=== PATIENT | female | born 1965 | race Caucasian/White ===

== ENCOUNTER 2016-10-21 10:48 | Emergency (ER) | payer MEDICAID ==
[~2016-10-21] VITALS: Ht 157.5 cm; Wt 2.3 kg
[~2016-10-21 10:48] MED LIST changes: -BUPROPION HCL150 M2 PO; -CETIRIZINE HCL10 MG PO; -GABAPENTIN 600600 MG PO; -LEVAQUIN500 MG PO; -PREDNISONE 20MG20 MG PO; -TRAZODONE 50MG50 MG PO
--- NOTE | 2016-10-21 10:53 | Emergency Room Report ---
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 Clinical Suspician of Infection? Mental Status: Sepsis Risk: Have you (or family members/close friends) recently traveled outside the [place]? If Yes, where/when: Have you had exposure to infectious disease within the past month? TB? Other? Specify: Source patient, RN notes reviewed Exam Limitations no limitations Comment Increasing SOA for a few days. History of COPD and uses inhalers, also says she quit smoking on September 25. ? 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 but no history of heart disease Cardiac Chest Pain Chest pain indicative of cardiac Yes Timing/Duration 1 week ALLERGIES Coded Allergies: No Known Drug Allergies (09/07/16) Home Medications Active Scripts SIMETHICONE (MYLICON 80MG Chewable) 80 MG PO TID #60 TABLET Ref 1 Prov: 08/27/16 Albuterol (Albuterol Inhaler 17GM) 2 PUFF IN QIDP PRN COUGH/SOB #1 INH Prov: 10/30/13 Cyclobenzaprine Hcl (Flexeril) 10 MG PO TID #15 TAB Prov: 05/23/14 Oxycodone 5MG/[id number] (Oxycodone-Acetaminophen 5-325) 1 TAB PO 1-2 DAILY PRN pain #60 TAB Prov: 10/26/15 Reported Medications ALBUTEROL (Ventolin Hfa) 1 PUFF IH PRN Albuterol Sulfate (Proair Hfa) 1 PUFF IH Q6HP PRN BREATHING Diazepam (Valium 5MG) 5 MG PO TID Escitalopram Oxalate (Escitalopram 20MG) 10 MG PO DAILY Prednisone (Prednisone 1MG) (Unknown Dose) PO DAILY Cetirizine Hcl (Zyrtec) 10 MG PO DAILY History Medical History General CAD? No Angina: No [place]: No Hypertension? No Hyperlipidemia? No CHF? No DVT? No PE? No COPD? No Asthma? Yes Anemia? No GERD? No Gastric ulcers? No GI Bleed? No Hernia? No Thyroid Problems? No Hypothyroidism? No CVA? No Seizures? No Diabetes? No Renal Insuffiency? No End Stage Renal Disease? No UTI? No Stones? No BPH? No GB Disease: No Nephritic Syndrome? No Asplenia? No Hepatitis? No Sickle Cell Disease? No Arthritis? Yes Migraines? No Cataracts? No Glaucoma? No MRSA? No HIV? No TB? No Anxiety? Yes Depression? Yes Cancer? No More? No Immunization Hx DT/Tetanus 5-10 YRS Surgical Hx Previous Surgery?Y HYSTERECTOMY D & C COLONOSCOPY Family History Family Hx Diabetes Yes CAD Yes Hypertension No Hyperlipidemia No Cancer No TB No Social History Smoking Hx Packs/day < 1 Pack Alcohol Alcohol: No Review of Systems All Other Systems Reviewed and Negative Constitutional see HPI Respiratory see HPI Cardiovascular see HPI Physical Exam Vital Signs Vital Signs Date Time Temp Pulse Resp B/P Pulse O2 O2 Flow FiO2 Ox Delivery Rate 10/21 1634 20 10/21 1603 80 16 142/72 98 10/21 1053 97.8 71 18 155/101 97 General Appearance normal appearance, no apparent distress, obese Respiratory Status No: respiratory distress. Lung Sounds bilateral: wheezing. 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 Yes Raza was queried for this patient? Yes Reference #: [id number] Results/Orders Laboratory Tests 10/21/16 1105: Lactic Acid 0.8 10/21/16 1105: Creatine Kinase 96, CK-MB (CK-2) Rel Index 0.9, CK and CKMB Interp 0.9, Troponin I < 0.02 10/21/16 1105: Amylase 27, Lipase 205 10/21/16 1105: Sodium 141, Potassium 4.1, Chloride 106, Carbon Dioxide 29, BUN 10, Creatinine 0.7, Estimated Creat Clear 3 L, Estimated GFR (MDRD) 88, Glucose 86, Calcium 8.7, Total Bilirubin 0.4, AST 76 H, ALT 124 H, Alkaline Phosphatase 56, Total Protein 7.0, Albumin 4.0, Globulin 3.0, Albumin/Globulin Ratio 1.3, D-Dimer 283, WBC 6.9, RBC 4.76, Hgb 14.4, Hct 51.0 H, MCV 107.3 H, RDW 16.4, Plt Count 251, MPV 12.9 H, Gran % 50.6, Gran # 3.5, Lymphocytes % 33.9, Monocytes % 7.5, Eosinophils % 5.2, Basophils % 2.7 H, Lymphocytes # 2.3, Monocytes # 0.5, Eosinophils # 0.4, Basophils # 0.2, PUBS MCHC 28.2 L, MCH 30.3 Current Medication Orders Sig/Samm Start time Last Medication Dose Route Stop Time Status Admin Ceftriaxone Sodium 0 .STK-MED ONE 10/21 1632 DC IV Sodium Chloride 50 ML .STK-MED ONE 10/21 1631 DC IV Acetaminophen/ 1 TAB ONCE ONE 10/21 1630 DC 10/21 Hydrocodone Bitart PO 10/21 1631 1634 Gabapentin 600 MG ONCE ONE 10/21 1630 DC 10/21 PO 10/21 1631 1634 Acetaminophen/ 0 .STK-MED ONE 10/21 1629 DC Hydrocodone Bitart PO Gabapentin 0 .STK-MED ONE 10/21 1629 DC .ROUTE Iopamidol 70 ML ONCE ONE 10/21 1600 DC 10/21 IV 10/21 1601 1607 Sodium Chloride 10 ML PRN PRN 10/21 1600 AC 10/21 IV 10/21 1728 1609 Sodium Chloride 20 ML ONCE ONE 10/21 1600 DC 10/21 IV 10/21 1601 1607 Sodium Chloride 20 ML ONCE ONE 10/21 1600 UNV 10/21 IV 10/21 1601 1559 Ceftriaxone Sodium 1 GM ONCE ONE 10/21 1500 DC 10/21 Sodium Chloride 50 ML IV 10/21 1529 1634 Methylprednisolone 125 MG ONCE ONE 10/21 1130 DC 10/21 Sodium Succinate IV 10/21 1131 1127 Aspirin 0 .STK-MED ONE 10/21 1123 DC .ROUTE Methylprednisolone 0 .STK-MED ONE 10/21 1123 DC Sodium Succinate .ROUTE Albuterol/Ipratropium 3 ML Q4HP PRN 10/21 1115 AC 10/21 INH 1120 Aspirin 324 MG ONCE ONE 10/21 1115 DC 10/21 PO 10/21 1116 1123 Methylprednisolone 125 MG 10/21 1115 CAN Sodium Succinate IV Sodium Chloride 10 ML PRN PRN 10/21 1115 AC 10/21 IV 10/22 1102 1129 Orders Procedure Date/time Status DIET-NOTHING BY MOUTH 10/[address] CHEST W/PE PROTOCOL REQ 10/[address] ABD/PELVIS REQ 10/21 1450 Complete D-DIMER 10/21 1319 Complete LIPASE 10/21 1157 Complete AMYLASE 10/21 1157 Complete ELECTROCARDIOGRAM REQUEST 10/21 1117 Active RT REQUEST DUONEB 10/21 111 Active IV SALINE LOCK 10/21 1117 Active SHIPPING/RECEIVING CLERK 10/21 1117 Active CULTURE, BLOOD 10/21 111 Active LACTIC ACID 10/21 111 Complete CBC WITH AUTO DIFF 10/21 111 Complete CHEM 12 PROFILE 10/21 111 Complete CARDIAC ENZYMES 10/21 1101 Complete 12 LEAD EKG-JOSE (INITIAL) 10/21 UNK Active CM/EKG CM/EKG EKG rate (70), NSR, normal EKG XRAY/CT/US XRAY/CT/US XRAY chest XR interpretation by discussed w/radiologist Xray Results peribronchial inflammatory changes consistent with bronchitis or pneumonitis CT chest CT interpretation by discussed w/radiologist Time results known: 1629 CT Results normal/NAD Departure Departure Time of Disposition 170 Disposition DC Home or Self Care(routine) Clinical Impression Primary Impression: Acute interstitial pneumonitis Condition STABLE Referrals Michelle Renteria MD Patient Instructions DI for Pneumonia -- Adult, Pneumonia-Adult Additional Instructions Use medicines as directed and followup with Dr. Renteria as needed. Discharge Counseling Counseled pt/family regarding diagnosis, test results, medications/RX, home care, follow up needs Prescriptions Current Visit Scripts Levofloxacin (Levaquin 500MG) 500 MG PO DAILY #10 TAB ED Critical Care Critical Care No If Critical Care minutes are documented, the time involved in the performance of seperately reportable procedures was not counted toward critical care time documented. I directly delivered medical care to this critically ill and/or injured patient. Timely evaluation and treatment was necessary to address the significant organ system(s) dysfunction present in this patient. at 1705
--- NOTE | 2016-10-21 10:53 | Emergency Room Report ---
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 Clinical Suspician of Infection? Mental Status: Sepsis Risk: Have you (or family members/close friends) recently traveled outside the [place]? If Yes, where/when: Have you had exposure to infectious disease within the past month? TB? Other? Specify: Source patient, RN notes reviewed Exam Limitations no limitations Comment Increasing SOA for a few days. History of COPD and uses inhalers, also says she quit smoking on September 25. ? 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 heart disease Cardiac Chest Pain Chest pain indicative of cardiac Yes Timing/Duration 1 week ALLERGIES Coded Allergies: No Known Drug Allergies (09/07/16) Home Medications Active Scripts SIMETHICONE (MYLICON 80MG Chewable) 80 MG PO TID #60 TABLET Ref 1 Prov: 08/27/16 Albuterol (Albuterol Inhaler 17GM) 2 PUFF IN QIDP PRN COUGH/SOB #1 INH Prov: 10/30/13 Cyclobenzaprine Hcl (Flexeril) 10 MG PO TID #15 TAB Prov: 05/23/14 Oxycodone 5MG/[id number] (Oxycodone-Acetaminophen 5-325) 1 TAB PO 1-2 DAILY PRN pain #60 TAB Prov: 10/26/15 Reported Medications ALBUTEROL (Ventolin Hfa) 1 PUFF IH PRN Albuterol Sulfate (Proair Hfa) 1 PUFF IH Q6HP PRN BREATHING Diazepam (Valium 5MG) 5 MG PO TID Escitalopram Oxalate (Escitalopram 20MG) 10 MG PO DAILY Prednisone (Prednisone 1MG) (Unknown Dose) PO DAILY Cetirizine Hcl (Zyrtec) 10 MG PO DAILY History Medical History General CAD? No Angina: No [place]: No Hypertension? No Hyperlipidemia? No CHF? No DVT? No PE? No COPD? No Asthma? Yes Anemia? No GERD? No Gastric ulcers? No GI Bleed? No Hernia? No Thyroid Problems? No Hypothyroidism? No CVA? No Seizures? No Diabetes? No Renal Insuffiency? No End Stage Renal Disease? No UTI? No Stones? No BPH? No GB Disease: No Nephritic Syndrome? No Asplenia? No Hepatitis? No Sickle Cell Disease? No Arthritis? Yes Migraines? No Cataracts? No Glaucoma? No MRSA? No HIV? No TB? No Anxiety? Yes Depression? Yes Cancer? No More? No Immunization Hx DT/Tetanus 5-10 YRS Surgical Hx Previous Surgery?Y HYSTERECTOMY D & C COLONOSCOPY Family History Family Hx Diabetes Yes CAD Yes Hypertension No Hyperlipidemia No Cancer No TB No Social History Smoking Hx Packs/day < 1 Pack Alcohol Alcohol: No Review of Systems All Other Systems Reviewed and Negative Constitutional see HPI Respiratory see HPI Cardiovascular see HPI Physical Exam Vital Signs Vital Signs Date Time Temp Pulse Resp B/P Pulse O2 O2 Flow FiO2 Ox Delivery Rate 10/21 1634 20 10/21 1603 80 16 142/72 98 10/21 1053 97.8 71 18 155/101 97 General Appearance normal appearance, no apparent distress, obese Respiratory Status No: respiratory distress. Lung Sounds bilateral: wheezing. 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 Yes Raza was queried for this patient? Yes Reference #: [id number] Results/Orders Laboratory Tests 10/21/16 1105: Lactic Acid 0.8 10/21/16 1105: Creatine Kinase 96, CK-MB (CK-2) Rel Index 0.9, CK and CKMB Interp 0.9, Troponin I < 0.02 10/21/16 1105: Amylase 27, Lipase 205 10/21/16 1105: Sodium 141, Potassium 4.1, Chloride 106, Carbon Dioxide 29, BUN 10, Creatinine 0.7, Estimated Creat Clear 3 L, Estimated GFR (MDRD) 88, Glucose 86, Calcium 8.7, Total Bilirubin 0.4, AST 76 H, ALT 124 H, Alkaline Phosphatase 56, Total Protein 7.0, Albumin 4.0, Globulin 3.0, Albumin/Globulin Ratio 1.3, D-Dimer 283, WBC 6.9, RBC 4.76, Hgb 14.4, Hct 51.0 H, MCV 107.3 H, RDW 16.4, Plt Count 251, MPV 12.9 H, Gran % 50.6, Gran # 3.5, Lymphocytes % 33.9, Monocytes % 7.5, Eosinophils % 5.2, Basophils % 2.7 H, Lymphocytes # 2.3, Monocytes # 0.5, Eosinophils # 0.4, Basophils # 0.2, PUBS MCHC 28.2 L, MCH 30.3 Current Medication Orders Sig/Samm Start time Last Medication Dose Route Stop Time Status Admin Ceftriaxone Sodium 0 .STK-MED ONE 10/21 1632 DC IV Sodium Chloride 50 ML .STK-MED ONE 10/21 1631 DC IV Acetaminophen/ 1 TAB ONCE ONE 10/21 1630 DC 10/21 Hydrocodone Bitart PO 10/21 1631 1634 Gabapentin 600 MG ONCE ONE 10/21 1630 DC 10/21 PO 10/21 1631 1634 Acetaminophen/ 0 .STK-MED ONE 10/21 1629 DC Hydrocodone Bitart PO Gabapentin 0 .STK-MED ONE 10/21 1629 DC .ROUTE Iopamidol 70 ML ONCE ONE 10/21 1600 DC 10/21 IV 10/21 1601 1607 Sodium Chloride 10 ML PRN PRN 10/21 1600 AC 10/21 IV 10/21 1728 1609 Sodium Chloride 20 ML ONCE ONE 10/21 1600 DC 10/21 IV 10/21 1601 1607 Sodium Chloride 20 ML ONCE ONE 10/21 1600 UNV 10/21 IV 10/21 1601 1559 Ceftriaxone Sodium 1 GM ONCE ONE 10/21 1500 DC 10/21 Sodium Chloride 50 ML IV 10/21 1529 1634 Methylprednisolone 125 MG ONCE ONE 10/21 1130 DC 10/21 Sodium Succinate IV 10/21 1131 1127 Aspirin 0 .STK-MED ONE 10/21 1123 DC .ROUTE Methylprednisolone 0 .STK-MED ONE 10/21 1123 DC Sodium Succinate .ROUTE Albuterol/Ipratropium 3 ML Q4HP PRN 10/21 1115 AC 10/21 INH 1120 Aspirin 324 MG ONCE ONE 10/21 1115 DC 10/21 PO 10/21 1116 1123 Methylprednisolone 125 MG 10/21 1115 CAN Sodium Succinate IV Sodium Chloride 10 ML PRN PRN 10/21 1115 AC 10/21 IV 10/22 1102 1129 Orders Procedure Date/time Status DIET-NOTHING BY MOUTH 10/[address] CHEST W/PE PROTOCOL REQ 10/[address] ABD/PELVIS REQ 10/21 1450 Complete D-DIMER 10/21 1319 Complete LIPASE 10/21 1157 Complete AMYLASE 10/21 1157 Complete ELECTROCARDIOGRAM REQUEST 10/21 1117 Active RT REQUEST DUONEB 10/21 111 Active IV SALINE LOCK 10/21 1117 Active MECHANIC 10/21 1117 Active CULTURE, BLOOD 10/21 111 Active LACTIC ACID 10/21 111 Complete CBC WITH AUTO DIFF 10/21 111 Complete CHEM 12 PROFILE 10/21 111 Complete CARDIAC ENZYMES 10/21 1101 Complete 12 LEAD EKG-JOSE (INITIAL) 10/21 UNK Active CM/EKG CM/EKG EKG rate (70), NSR, normal EKG XRAY/CT/US XRAY/CT/US XRAY chest XR interpretation by discussed w/radiologist Xray Results peribronchial inflammatory changes consistent with bronchitis or pneumonitis CT chest CT interpretation by discussed w/radiologist Time results known: 1629 CT Results normal/NAD Departure Departure Time of Disposition 170 Disposition DC Home or Self Care(routine) Clinical Impression Primary Impression: Acute interstitial pneumonitis Condition STABLE Referrals Michelle Renteria MD Patient Instructions DI for Pneumonia -- Adult, Pneumonia-Adult Additional Instructions Use medicines as directed and followup with Dr. Renteria as needed. Discharge Counseling Counseled pt/family regarding diagnosis, test results, medications/RX, home care, follow up needs Prescriptions Current Visit Scripts Levofloxacin (Levaquin 500MG) 500 MG PO DAILY #10 TAB ED Critical Care Critical Care No If Critical Care minutes are documented, the time involved in the performance of seperately reportable procedures was not counted toward critical care time documented. I directly delivered medical care to this critically ill and/or injured patient. Timely evaluation and treatment was necessary to address the significant organ system(s) dysfunction present in this patient. at 1705
[2016-10-21 11:36] LABS: HEMOGLOBIN 14.4 g/dL (12.2-16.2); LYMPH # 2.3 K/mm3 (0.7-4.5); LYMPH % 33.9 % (10-50.0)
--- NOTE | 2016-10-21 13:35 | RADIOLOGY REPORT PS360 ---
CHEST(2 VIEWS-NOT PORTABLE) HISTORY: SOA, Chest tightness, COPD ORDERING PHYSICIAN: Jess Beebe MD PATIENT AGE: 51 years COMPARISON: 06/07/2016. FINDINGS: Unremarkable cardiovascular structures. There is mild coarsening of the bronchovascular markings throughout both lungs which may be seen with peribronchial inflammatory change/bronchitis. No lobar consolidation or collapse. Mild degenerative change thoracic spine. IMPRESSION: Coarsened bronchovascular markings consistent with peribronchial inflammatory change/bronchitis/interstitial pneumonitis
--- NOTE | 2016-10-21 16:25 | RADIOLOGY REPORT PS360 ---
CTA-CHEST HISTORY: Shortness of breath, chest pain, recent surgery GB SURGERY 1 MONTH AGO, CHEST PAIN, SOA, ORDERING PHYSICIAN: Jess Beebe MD PATIENT AGE: 51 years TECHNIQUE: Helical acquisition obtained following the bolus administration of 70 mL of Isovue 370 followed by a saline bolus. Axial, sagittal, and coronal reformatted images are generated and reviewed. COMPARISON: None FINDINGS: PULMONARY ARTERIES:No pulmonary embolus evident. Streak artifact noted within the pulmonary arteries. Minimal amount of gas is noted within the main pulmonary artery likely related to intravenous access. AORTA:No acute finding. No thoracic aortic aneurysm or dissection evident LUNGS:There are mild atelectatic or fibrotic changes in both lower lobes PLEURAL SPACES:No significant effusion. No evidence of pneumothorax. HEART:Unremarkable. Normal heart size. No significant pericardial effusion. MEDIASTINAL AND HILAR STRUCTURES:No mediastinal or hilar mass evident. No dominant adenopathy. BONY STRUCTURES:No acute bony abnormalities apparent LYMPH NODES:No enlarged lymph nodes evident UPPER ABDOMEN:Unremarkable IMPRESSION: 1. No acute finding. No evidence of pulmonary embolus, aortic aneurysm, or dissection. Streak artifact is present within the pulmonary arteries 2. Mild atelectatic or fibrotic changes in the lung bases.
--- NOTE | 2016-10-21 16:33 | RADIOLOGY REPORT PS360 ---
CT ABD PELVIS W/ CONTRAST CLINICAL INDICATION: Abdominal pain, distended abdomen GB SURGERY 1 MONTH AGO, CHEST PAIN, SOA, DISTENDED ABODMEN ORDERING PHYSICIAN: Jess Beebe MD PATIENT AGE: 51 years COMPARISON: None TECHNIQUE: Axial images obtained with sagittal and coronal reformats. PROCEDURE: Oral Contrast: None IV Contrast: 70 mL is Isovue-370. FINDINGS: There is mild diffuse hepatic steatosis. No focal liver lesions or biliary dilatation. There has been a prior cholecystectomy. The spleen, pancreas, and adrenal glands are unremarkable. No hydronephrosis or renal calculi evident. No intestinal structure in or free air. Unremarkable appendix. Prior hysterectomy. No evidence of diverticulitis. Postsurgical changes lumbar spine with prior fusion at L4 and L5. There is a tiny umbilical hernia containing fat. IMPRESSION: No acute intra-abdominal or pelvic pathology.
[2016-10-21] MEDS ORDERED: LEVAQUIN500 MG PO (17:04)
[2016-10-21 17:10] VITALS: BP 142/72
[2016-12-01] MEDS ORDERED: TRAZODONE 50MG50 MG PO (07:10)
[2016-12-01] MEDS ORDERED: CETIRIZINE HCL10 MG PO (07:11)
[2016-12-01] MEDS ORDERED: GABAPENTIN 600600 MG PO (07:11)
[2016-12-01] MEDS ORDERED: BUPROPION HCL150 M2 PO (07:12)
[2016-12-01] MEDS ORDERED: PREDNISONE 20MG20 MG PO (09:06)
== END 2016-10-21 17:10 | disposition home or self-care (01) ==
LOC: ER 10:48
PROVIDERS: Nurse Practitioner Family
DX: J84.114 Acute interstitial pneumonitis (principal); Z87.891 Personal history of nicotine dependence; J44.9 Chronic obstructive pulmonary disease, unspecified
CPT/HCPCS: Q9967

== ENCOUNTER → 2016-10-21 | Outpatient (CLI) | payer MEDICAID ==
[~2016-10-21] MED LIST: ALBUTEROL2 PUFFS/17 IN; BUPROPION HCL150 M2 PO; CETIRIZINE HCL10 MG PO; CIPRO 500MG TA500 MG PO; DICLOFENAC SODI75 M2 PO; ESCITALOPRAM 2020 MG PO; FLEXERIL10 MG PO; FLEXERIL5 MG PO; GABAPENTIN 600600 MG PO; GABAPENTIN100 M1 PO; GABAPENTIN300 MG; HYDROCODONE-APA1 TA1 PO; HYDROCODONE-APA1 TA2 PO; LEVAQUIN500 MG PO; MEDROL 4MG. DOSE4 MG PO; MELOXICAM15 MG PO; MOBIC7.5 MG PO; MOTRIN600 M1 PO; MYLICON 80MG. C80 MG PO; NAPROXEN SODIU500 MG PO; PERCOCET 5/3251 EACH PO; PREDNISONE 20MG20 MG PO; PREDNISONE1 MG PO; PROAIR HFA0.09 MG/AC IH; SPIRIVA HA1 PUFF/INH IH; TESSALON PERLE100 MG PO; TRAZODONE 50MG50 MG PO; TYLENOL ES500 M1 PO; TYLENOL ES500 MG PO; VALIUM 5MG TABLE5 MG PO; VENTOLIN H0.09 MG/AC IH; ZYRTEC ALLERGY10 MG PO
[2016-10-21 17:58] LABS: AMPHETAMINES/METAMPHETAMINES NEGATIVE ng/mL (<1000)
== END ==
LOC: LAB 15:34
PROVIDERS: Emergency Medicine
DX: Z79.899 Other long term (current) drug therapy (principal)

== ENCOUNTER 2017-04-20 17:39 | Emergency (ER) | payer SELFPAY ==
[~2017-04-20] VITALS: Ht 154.9 cm; Wt 89.8 kg
[~2017-04-20 17:39] MED LIST changes: +BUPROPION HCL150 M2 PO; +CETIRIZINE HCL10 MG PO; +GABAPENTIN 600600 MG PO; +LEVAQUIN500 MG PO; +PREDNISONE 20MG20 MG PO; +TRAZODONE 50MG50 MG PO
--- OUTSIDE RECORDS SUMMARY | 2017-04-20 18:01 | External Medical Summary Rpt ---
Author Author , YFN Aguiar YFN Address Unknown Phone [email or web address] Providers Care Terminal Make Up Operator Name Role Phone ALLRAN JR, ALLRAN JR Unavailable Unavailable ALLRAN JR AMERICA, ALLRAN Unavailable Unavailable JR AMERICA BEINEKE KATYA, BEINEKE Unavailable Unavailable KATYA BESSON, BESSON Unavailable Unavailable MENDES, MENDES Unavailable Unavailable MENDES ALL, MENDES ALL Unavailable Unavailable [facility] Unavailable Unavailable [facility], [facility] JORGE JORGE Unavailable Unavailable FEEBACK, FEEBACK Unavailable Unavailable JR IZABELLA CARDONA, Unavailable Unavailable JR IZABELLA CARDONA GAINEY Unavailable Unavailable KRYSTA DAVI, KRYSTA Unavailable Unavailable DAVI [facility] Unavailable Unavailable [facility], [facility] Unavailable Unavailable H[facility]PITAL P, [facility], Unavailable Unavailable [facility] Unavailable Unavailable IMAGING [facility], [facility] FERNANDEZ, FERNANDEZ Unavailable Unavailable JOSE GARCIA JR, JR Unavailable Unavailable PROCTOR, PROCTOR Unavailable Unavailable PROCTOR JUDD, PROCTOR Unavailable Unavailable JUDD [facility] Unavailable [facility]available [facility], [facility] PETTEY, PETTEY Unavailable Unavailable ANTONIO CORRALES, Unavailable Unavailable TIFFANY MILLER JR Unavailable Unavailable STACIE HERNANDEZ DO, Unavailable Unavailable [facility] Unavailable Unavailable Purpose Continuity of Care Document - 10-30-2013 through 2016 Problems Code Diagnosis DOS Provider Status I10 ESSENTIAL 02-14-2017 [facility] HYPERTENSIO GROUP N M545 LOW BACK 02-14-2017 [facility] [id number] OTHER LONG 02-14-2017 [facility] TERM [facility] CURRENT GROUP DRUG THERAPY J309 ALLERGIC 02-10-2017 [facility] RHINITIS [facility] UNSPECIFIED GROUP J329 CHRONIC 02-10-2017 [facility] SINUSITIS [facility] UNSPECIFIED GROUP 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 [facility] SEPTUM GROUP M1712 UNILATERAL 02-02-2017 [facility] OSTEOARTHRI GROUP TIS LEFT KNEE J320 CHRONIC 01-10-2017 [facility] MAXILLARY [facility] SINUSITIS GROUP J322 CHRONIC 01-10-2017 [facility] ETHMOIDAL [facility] SINUSITIS GROUP [id number] ENCOUNTER 01-10-2017 [facility] CARIOVASCUL AR EXAM [id number] ENCOUNTER 01-10-2017 [facility] RESPIRATORY EXAM F23055 ENCOUNTER 01-10-2017 [facility] LABORATORY EXAM M2342 LOOSE BODY 01-04-2017 [facility] IN KNEE [facility] LEFT KNEE GROUP 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 01-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 GUZMÁN LEFT KNEE J321 CHRONIC 12-29-2016 [facility] SINUS[facility]IS [facility] J343 HYPERTROPHY 12-29-2016 [facility] NASAL MEDICAL TURBINATES IMAGING ASS J339 NASAL POLYP 12-22-2016 [facility] UNSPECIFIED GROUP [id number] EFFUSION 12-22-2016 [place] UNSPECIFIED [facility]ICAL KNEE IMAGING ASS V73565 PAIN IN 12-22-2016 [place] LEFT KNEE [facility]ICAL IMAGING ASS M1732 UNILATERAL 12-01-2016 [facility] TIC PLLC OSTEOARTHRI TIS LT KNEE Z47634 EFFUSION 12-01-2016 [place] LEFT [facility]NEE [facility]ICAL [facility] ASS J7687SH UNS INJURY 12-01-2016 [facility] LT LOWER [facility], LEG INITIAL PLLC ENCOUNTER M05280 PRIMARY 11-23-2016 [facility] OSTEOARTHRI [facility] TIS GROUP UNSPECIFIED HAND I95530 PAIN IN 11-23-2016 [place] RIGHT MEDICAL FINGERS IMAGING ASS M78233 TRIGGER 11-08-2016 [facility] FINGER [facility] RIGHT INDEX GROUP FINGER R49868 TRIGGER 11-08-2016 [facility] FINGER [facility] RIGHT RING GROUP FINGER R079 CHEST PAIN 11-03-2016 [facility] G4733 OBSTRUCTIVE 10-25-2016 [facility] SLEEP [facility] APNEA ADULT GROUP PEDIATRIC J449 CHRONIC 10-21-2016 [facility] P DISEASE UNS Z00500 ACUTE 10-21-2016 [facility] P PNEUMONITIS R0602 SHORTNESS 10-21-2016 [place] OF BREATH MEDICAL IMAGING ASS R0789 OTHER CHEST 10-21-2016 [place] PAIN [facility]ICAL [facility] ASS R109 UNSPECIFIED 10-21-2016 [place] ABDOMINAL [facility]ICAL PAIN IMAGING ASS R140 ABDOMINAL 10-21-2016 [place] DISTENSION [facility] GASEOUS IMAGING ASS 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 [facility] P DEPENDENCE L989 DISORDER 10-14-2016 [facility] SKIN & [facility] SUBCUTANEOU GROUP S TISSUE UNS K8000 CALCULUS GB 09-12-2016 [facility] CHOLECYST INC W/O OBSTRUCTION R1013 EPIGASTRIC 09-12-2016 [place] PAIN [facility] [id number] CONTUSION 09-12-2016 [facility] ABDOMINAL IMAGING ASS WALL INITIAL ENCOUNTER 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 K8010 CALCULUS GB 09-07-2016 [facility], W/CHRONIC LLC CHOLECYST W/O OBSTRUCTION K8080 OTHER 09-07-2016 [facility] CHOLELITHIA [facility] SIS WITHOUT GROUP OBSTRUCTION K819 CHOLECYSTIT 09-07-2016 [facility] UNSPECIFIED [facility] D126 BENIGN 09-02-2016 [facility] NEOPLASM OF [facility]YSICIANS COLON GROUP UNSPECIFIED K8020 CALCULUS GB 08-27-2016 [facility] W/O PHYSICIANS, CHOLECYSTIT PLLC IS W/O OBSTRUCTION Z720 TOBACCO USE 08-27-2016 [facility] M5416 RADICULOPAT 08-24-2016 [facility] HY LUMBAR PHYSICIANS REGION GROUP 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 K5790 DIVERTICULO 08-23-2016 [facility] SIS PART PHYS[facility]IANS UNS W/O GROUP PERF/ABSC W/O BLEED Z1211 ENCOUNTER 08-23-2016 [facility] SCREENING [facility]IANS MALIGNANT GROUP NEOPLASM OF COLON P87456 UNSPECIFIED 08-20-2016 [facility] ASTHMA [facility] UNCOMPLICAT GROUP ED Z1231 ENCOUNTER 08-15-2016 [place] SCREENING MEDICAL MAMMO MALIG IMAGING ASS NEOPLASM BREAST R1011 RIGHT UPPER 07-07-2016 [place] QU[facility]ANT [facility] PAIN IM[facility] E663 OVERWEIGHT 07-05-2016 [facility] 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 305.1 305.1 02-05-2014 [place] TOBACCO USE [facility] 466.0 466.0 ACUTE 10-30-2013 [place] BRONCHITIS [facility] 493.90 493.90 10-30-2013 [place] ASTHMA, [facility] UNSPECIFIED Hospital J84.114 ACUTE INTERSTITIA L PNEUMONITIS K80.20 CALCULUS OF GALLBLADDER W/O CHOLECYSTIT IS W/O OBSTRUCTION M17.10 UNILATERAL PRIMARY OSTEOARTHRI TIS, UNSPECIFIED KNEE M17.9 OSTEOARTHRI TIS OF KNEE, UNSPECIFIED M79.603 PAIN IN ARM, UNSPECIFIED S61.019A LACERATION W/O FOREIGN BODY OF THMB W/O DAMAGE TO NAIL, INIT S89.92XA UNSPECIFIED INJURY OF LEFT LOWER LEG, INITIAL ENCOUNTER Z51.89 ENCOUNTER FOR OTHER SPECIFIED AFTERCARE Allergies, Adverse Reactions, Alerts Type Allergy to substance Adverse Reaction to Substance Substance Reaction Severity INGREDIENT: NO KNOWN Unknown Unknown - NO KNOWN DRUG ALLERGY Clinical Alert Notifications Alert Asthma: no influenza vaccine in the last 365 days Medications Na ND Rx Da Fi Fi Am Da Di Ph RX Ph St me C No te ll ll ou ys ag ar # ys at rm s nt no ma ic us Or Da si cy ia de te s n re d BU 59 06 07 4. 28 00 [place] Ac TR 01 -2 -2 00 00 L- ti AN 10 6- 1- 0 04 MA ve S 75 20 20 53 RT 15 80 17 17 07 4 41 PH MC AR G/ MA HR CY PA #5 TC 91 H TR 50 06 07 30 30 00 CO Ac AZ 11 -2 -1 .0 00 L- ti OD 10 1- 4- 00 07 MA ve ON 43 20 20 49 RT E 40 17 17 47 10 1 09 PH 0 AR MG MA CY TA BL #5 ET 91 GA 00 06 07 90 30 00 WA Ac BA 22 -2 -1 .0 00 L- ti PE 82 1- 4- 00 07 MA ve NT 63 20 20 49 RT IN 65 17 17 47 0 10 PH 60 AR 0 MA MG CY TA #5 BL 91 ET FL 60 06 07 16 30 00 WA Ac UT 43 -2 -1 .0 00 L- ti IC 20 1- 4- 00 07 MA ve 26 20 20 49 RT ON 41 17 17 47 E 5 12 PH IA AR OP MA CY 50 #5 MC 91 G SP RA Y MO 31 06 07 30 30 00 WA Ac NT 72 -2 -1 .0 00 L- ti EL 20 1- 4- 00 07 MA ve UK 72 20 20 49 RT 61 17 17 47 T 0 13 PH SO AR D MA 10 CY MG #5 91 TA BL ET LO 54 06 07 90 90 00 CO Ac VA 45 -2 -1 .0 00 L- ti ST 80 1- 4- 00 07 MA ve AT 93 20 20 49 RT IN 81 17 17 47 6 14 PH 10 AR MA MG CY TA #5 BL 91 ET VE 00 06 07 18 17 00 CO Ac NT 17 -2 -1 .0 00 L- ti OL 30 1- 4- 00 07 MA ve IN 68 20 20 49 RT 22 17 17 47 HF 0 15 PH A AR 90 MA CY MC G #5 IN 91 [place] LE R PA 68 06 07 30 30 00 CO Ac NT 64 -2 -1 .0 00 L- ti OP 50 1- 4- 00 07 MA ve RA 49 20 20 49 RT ZO 25 17 17 47 LE 4 16 PH AR SO MA D CY DR #5 40 91 MG TA B BU 00 06 07 60 30 00 CO Ac IA 59 -2 -1 .0 00 L- ti OP 13 1- 4- 00 07 MA ve IO 54 20 20 49 RT N 10 17 17 47 HC 5 18 PH L AR SR MA CY 15 0 #5 MG 91 TA BL ET HY 00 06 07 [address] 40 -2 -1 .0 00 L- ti OC 60 1- 4- 00 02 MA ve OD 12 20 20 24 RT ON 50 17 17 08 -A 1 23 PH CE AR TA MA MD CY NO PH #5 N 91 10 -3 25 VE 00 06 07 18 17 00 CO Ac NT 17 -0 -0 .0 00 L- ti OL 30 8- 7- 00 07 MA ve IN 68 20 20 47 RT 22 17 17 65 HF 0 70 PH A AR 90 MA CY MC G #5 IN 91 [place] LE R BU 59 05 06 4. 28 00 CO Ac TR 01 -2 -2 00 00 L- ti AN 10 5- 3- 0 04 MA ve S 75 20 20 53 RT 15 80 17 17 01 4 65 PH MC AR G/ MA HR CY PA #5 TC 91 H TR 50 05 06 30 30 00 CO Ac AZ 11 -2 -1 .0 00 L- ti OD 10 1- 6- 00 07 MA ve ON 43 20 20 47 RT E 30 17 17 87 50 1 66 PH AR MG MA CY TA BL #5 ET 91 BU 00 05 06 60 30 00 WA Ac IA 59 -2 -1 .0 00 L- ti OP 13 1- 6- 00 07 MA ve IO 54 20 20 48 RT N 10 17 17 44 HC 5 05 PH L AR SR MA CY 15 0 #5 MG 91 TA BL ET GA 00 05 06 90 30 00 CO Ac BA 22 -2 -1 .0 00 L- ti PE 82 1- 6- 00 07 MA ve NT 63 20 20 47 RT IN 65 17 17 87 0 67 PH 60 AR 0 MA MG CY TA #5 BL 91 ET PA 68 05 06 30 30 00 CO Ac NT 64 -2 -1 .0 00 L- ti OP 50 1- 6- 00 07 MA ve RA 49 20 20 47 RT ZO 25 17 17 87 LE 4 70 PH AR SO MA D CY DR #5 40 91 MG TA B CE 16 05 06 90 90 00 CO Ac TI 57 -2 -1 .0 00 L- ti RI 10 3- 6- 00 08 MA ve ZI 40 20 20 83 RT NE 25 17 17 95 0 77 PH HC AR L MA 10 CY MG #5 91 TA BL ET LI 68 05 06 90 90 00 CO Ac SI 64 -2 -1 .0 00 L- ti NO 50 3- 6- 00 07 MA ve IA 55 20 20 48 RT IL 15 17 17 95 5 4 01 PH AR MG MA CY TA BL #5 ET 91 HY 00 05 06 60 [address] 40 -2 -1 .0 00 L- ti OC 60 3- 6- 00 02 MA ve OD 12 20 20 24 RT ON 30 17 17 04 -A 1 36 PH CE AR TA MA MD CY NO PH #5 EN 91 5- 32 5 MO 31 05 06 30 30 00 CO Ac NT 72 -1 -1 .0 00 L- ti EL 20 9- 6- 00 07 MA ve UK 72 20 20 48 RT 61 17 17 88 T 0 35 PH SO AR D MA 10 CY MG #5 91 TA BL ET FL 60 05 06 16 30 00 CO Ac UT 43 -1 -1 .0 00 L- ti IC 20 9- 6- 00 07 MA ve 26 20 20 48 RT ON 41 17 17 88 E 5 37 PH IA AR OP MA CY 50 #5 MC 91 G SP RA Y BU 59 04 05 4. 28 00 CO Ac TR 01 -2 -2 00 00 L- ti AN 10 7- 6- 0 04 MA ve S 75 20 20 53 RT 15 80 17 17 01 4 65 PH MC AR G/ MA HR CY PA #5 TC 91 H HY 00 04 05 30 [address] 37 -2 -2 .0 00 L- ti OC 80 7- 6- 00 07 MA ve HL 81 20 20 48 RT OR 00 17 17 48 OT 5 33 PH HI AR AZ MA ID CY E 12 #5 .5 91 MG CP CE 16 04 05 30 30 00 CO Ac TI 57 -2 -2 .0 00 L- ti RI 10 7 6 08 MA ve ZI 40 20 20 83 RT NE 25 17 17 82 0 24 PH HC AR L MA 10 CY MG #5 91 TA BL ET HY 00 04 05 60 [address] 40 -2 -1 .0 00 L- ti OC 60 9 02 MA ve OD 12 20 20 24 RT ON 30 17 17 00 -A 1 28 PH CE AR TA MA MD CY NO PH #5 EN 91 5- 32 5 PA 68 04 05 30 30 00 CO Ac NT 64 -2 -1 .0 00 L- ti OP 50 07 MA ve RA 49 20 20 47 RT ZO 25 17 17 87 LE 4 70 PH AR SO MA D CY DR #5 40 91 MG TA B TR 50 04 05 30 30 00 CO Ac AZ 11 -2 -1 .0 00 L- ti OD 10 9 07 MA ve ON 43 20 20 47 RT E 30 17 17 87 50 1 66 PH AR MG MA CY TA BL #5 ET 91 VE 00 04 05 18 17 00 CO Ac NT 17 -2 -1 .0 00 L- ti OL 30 07 MA ve IN 68 20 20 47 RT 22 17 17 65 HF 0 70 PH A AR 90 MA CY MC G #5 IN 91 [place] LE R BU 00 04 05 60 30 00 CO Ac IA 59 -2 -1 .0 00 L- ti OP 13 - 9 07 MA ve IO 54 20 20 48 RT N 10 17 17 44 HC 5 05 PH L AR SR MA CY 15 0 #5 MG 91 TA BL ET GA 00 04 05 90 30 00 CO Ac BA 22 -1 -1 .0 00 L- ti PE 82 9- 2- 00 07 MA ve NT 63 20 20 47 RT IN 65 17 17 87 0 67 PH 60 AR 0 MA MG CY TA #5 BL 91 ET BU 59 03 04 4. 28 00 CO Ac TR 01 -3 -2 00 00 L- ti AN 10 0- 8- 0 04 MA ve S 75 20 20 52 RT 15 80 17 17 98 4 13 PH MC AR G/ MA HR CY PA #5 TC 91 H MO 54 03 04 30 30 00 CO Ac NT 45 -3 -2 .0 00 L- ti EL 80 1- 8- 00 07 MA ve UK 89 20 20 47 RT 01 17 17 28 T 0 24 PH SO AR D MA 10 CY MG #5 91 TA BL ET FL 60 03 04 16 30 00 CO Ac UT 43 -3 -2 .0 00 L- ti IC 20 1- 8- 00 07 MA ve 26 20 20 46 RT ON 41 17 17 77 E 5 74 PH IA AR OP MA CY 50 #5 MC 91 G SP RA Y BU 00 03 04 60 30 00 CO Ac IA 59 -2 -2 .0 00 L- ti OP 13 8- 1- 00 07 MA ve IO 54 20 20 47 RT N 10 17 17 87 HC 5 69 PH L AR SR MA CY 15 0 #5 MG 91 TA BL ET VE 00 03 04 18 17 00 CO Ac NT 17 -2 -2 .0 00 L- ti OL 30 8- 1- 00 07 MA ve IN 68 20 20 47 RT 22 17 17 87 HF 0 68 PH A AR 90 MA CY MC G #5 IN 91 [place] LE R LO 54 03 04 90 90 00 CO Ac VA 45 -2 -2 .0 00 L- ti ST 80 7- 1- 00 07 MA ve AT 93 20 20 47 RT IN 81 17 17 87 0 65 PH 10 AR MA MG CY TA #5 BL 91 ET TR 50 03 04 30 30 00 CO Ac AZ 11 -2 -2 .0 00 L- ti OD 10 7- 1- 00 07 MA ve ON 43 20 20 47 RT E 30 17 17 87 50 1 66 PH AR MG MA CY TA BL #5 ET 91 GA 00 03 04 90 30 00 CO Ac BA 22 -2 -2 .0 00 L- ti PE 82 7- 1- 00 07 MA ve NT 63 20 20 47 RT IN 65 17 17 87 0 67 PH 60 AR 0 MA MG CY TA #5 BL 91 ET PA 68 03 04 30 30 00 CO Ac NT 64 -2 -2 .0 00 L- ti OP 50 7- 1- 00 07 MA ve RA 49 20 20 47 RT ZO 27 17 17 87 LE 0 70 PH AR SO MA D CY DR #5 40 91 MG TA B HY 00 03 04 60 [address] 40 -2 -2 .0 00 L- ti OC 60 7- 1- 00 02 MA ve OD 12 20 20 23 RT ON 30 17 17 96 -A 1 82 PH CE AR TA MA MD CY NO PH #5 EN 91 5- 32 5 IA 00 03 04 10 5 00 CO Ac ED 14 -0 -0 .0 00 L- ti NI 39 9- 7- 00 07 MA ve SO 73 20 20 47 RT NE 80 17 17 52 5 61 PH 20 AR MA MG CY TA #5 BL 91 ET VE 00 03 04 18 17 00 CO Ac NT 17 -1 -0 .0 00 L- ti OL 30 5- 7- 00 07 MA ve IN 68 20 20 47 RT 22 17 17 65 HF 0 70 PH A AR 90 MA CY MC G #5 IN 91 [place] LE R HY 00 02 03 [address] 40 -2 -2 .0 00 L- ti OC 60 4- 4- 00 02 MA ve OD 12 20 20 23 RT ON 30 17 17 92 -A 1 76 PH CE AR TA MA MD CY NO PH #5 EN 91 5- 32 5 LO 54 02 03 30 30 00 CO Ac VA 45 -2 -2 .0 00 L- ti ST 80 4- 4- 00 07 MA ve AT 93 20 20 47 RT IN 81 17 17 28 0 22 PH 10 AR MA MG CY TA #5 BL 91 ET PA 68 02 03 30 30 00 CO Ac NT 64 -2 -2 .0 00 L- ti OP 50 4- 4- 00 07 MA ve RA 49 20 20 47 RT ZO 27 17 17 28 LE 0 23 PH AR SO MA D CY DR #5 40 91 MG TA B MO 54 02 03 30 30 00 CO Ac NT 45 -2 -2 .0 00 L- ti EL 80 4- 4- 00 07 MA ve UK 89 20 20 47 RT 01 17 17 28 T 0 24 PH SO AR D MA 10 CY MG #5 91 TA BL ET TR 50 02 03 30 30 00 CO Ac AZ 11 -2 -2 .0 00 L- ti OD 10 4- 4- 00 07 MA ve ON 43 20 20 47 RT E 30 17 17 28 50 1 25 PH AR MG MA CY TA BL #5 ET 91 BU 60 02 03 60 30 00 WA Ac IA 50 -2 -2 .0 00 L- ti OP 50 4- 4- 00 07 MA ve IO 15 20 20 47 RT N 80 17 17 28 HC 1 26 PH L AR 75 MA CY MG #5 TA 91 BL ET CE 16 02 03 30 30 00 CO Ac TI 57 -2 -2 .0 00 L- ti RI 10 4- 4- 00 08 MA ve ZI 40 20 20 83 RT NE 25 17 17 82 0 24 PH HC AR L MA 10 CY MG #5 91 TA BL ET BU 59 02 03 4. 28 00 CO Ac TR 01 -2 -2 00 00 L- ti AN 10 4- 4- 0 04 MA ve S 75 20 20 52 RT 15 80 17 17 94 4 73 PH MC AR G/ MA HR CY PA #5 TC 91 H VE 00 02 03 18 17 00 CO Ac NT 17 -1 -1 .0 00 L- ti OL 30 9- 7- 00 07 MA ve IN 68 20 20 46 RT 22 17 17 09 HF 0 21 PH A AR 90 MA CY MC G #5 IN 91 [place] LE R ME 59 01 02 21 5 00 CO Ac TH 74 -3 -2 .0 00 L- ti YL 60 0- 4- 00 07 MA ve IA 00 20 20 46 RT ED 10 17 17 77 NI 3 73 PH SO AR LO MA NE CY 4 #5 MG 91 DO SE PK FL 60 01 02 16 30 00 CO Ac UT 43 -3 -2 .0 00 L- ti IC 20 0- 4- 00 07 MA ve 26 20 20 46 RT ON 41 17 17 77 E 5 74 PH IA AR OP MA CY 50 #5 MC 91 G SP RA Y MO 54 01 02 30 30 00 CO Ac NT 45 -3 -2 .0 00 L- ti EL 80 0- 4- 00 07 MA ve UK 89 20 20 46 RT 01 17 17 77 T 0 75 PH SO AR D MA 10 CY MG #5 91 TA BL ET LE 68 01 02 10 10 00 WA Ac VO 38 -2 -2 .0 00 L- ti FL 20 7- 4- 00 07 MA ve OX 01 20 20 46 RT AC 60 17 17 74 IN 1 04 PH AR 50 MA 0 CY MG #5 TA 91 BL ET PA 68 01 02 30 30 00 CO Ac NT 64 -2 -2 .0 00 L- ti OP 50 7- 4- 00 07 MA ve RA 49 20 20 46 RT ZO 27 17 17 09 LE 0 20 PH AR SO MA D CY DR #5 40 91 MG TA B CE 16 01 02 30 30 00 CO Ac TI 57 -2 -2 .0 00 L- ti RI 10 7- 4- 00 08 MA ve ZI 40 20 20 83 RT NE 25 17 17 74 0 58 PH HC AR L MA 10 CY MG #5 91 TA BL ET ES 68 01 02 30 30 00 CO Ac CI 64 -2 -2 .0 00 L- ti TA 50 7- 4- 00 07 MA ve LO 52 20 20 46 RT IA 05 17 17 09 AM 4 19 PH AR 20 MA CY MG #5 TA 91 BL ET GA 00 01 02 90 30 00 CO Ac BA 22 -2 -2 .0 00 L- ti PE 82 7- 4- 00 07 MA ve NT 63 20 20 46 RT IN 65 17 17 09 0 16 PH 60 AR 0 MA MG CY TA #5 BL 91 ET CO 58 01 02 12 4 00 CO Ac DE 65 -2 -2 0. 00 L- ti IN 70 7- 4 04 MA ve E- 50 20 20 0 52 RT 01 17 17 91 AI 6 78 PH FE AR N MA 10 CY -1 00 #5 91 MG /5 ML HY 00 01 02 60 [address] 40 -2 -2 .0 00 L- ti OC 60 7- 4- 00 02 MA ve OD 12 20 20 23 RT ON 30 17 17 88 -A 1 94 PH CE AR TA MA MD CY NO PH #5 EN 91 5- 32 5 EQ 49 01 02 28 28 00 CO Ac 03 -3 -2 .0 00 L- ti NI 50 0- 4- 00 08 MA ve CO 19 20 20 83 RT TI 50 17 17 78 NE 2 86 PH AR 14 MA CY MG /2 #5 4H 91 R PA TC H VE 00 01 02 18 17 00 CO Ac NT 17 -1 -1 .0 00 L- ti OL 30 9- 7- 00 07 MA ve IN 68 20 20 46 RT 22 17 17 09 HF 0 21 PH A AR 90 MA CY MC G #5 IN 91 [place] LE R PO 62 01 02 52 30 00 CO Ac LY 17 -1 -1 7. 00 L- ti ET 50 9- 7- 00 07 MA ve HY 44 20 20 0 45 RT LE 23 17 17 56 NE 1 87 PH AR GL MA YC CY OL #5 33 91 50 PO WD TR 50 01 02 30 30 00 WA Ac AZ 11 -2 -1 .0 00 L- ti OD 10 1- 7- 00 07 MA ve ON 43 20 20 46 RT E 30 17 17 09 50 1 22 PH AR MG MA CY TA BL #5 ET 91 LO 54 01 02 30 30 00 CO Ac VA 45 -2 -1 .0 00 L- ti ST 80 0- 7- 00 07 MA ve AT 93 20 20 46 RT IN 81 17 17 59 0 01 PH 10 AR MA MG CY TA #5 BL 91 ET NI 43 01 01 28 28 00 WA Ac CO 59 -0 -2 .0 00 L- ti TI 80 3- 7- 00 08 MA ve NE 44 20 20 83 RT 82 17 17 75 21 8 26 PH AR MG MA /2 CY 4H R #5 PA 91 TC H GA 00 12 01 90 30 00 CO Ac BA 22 -3 -2 .0 00 L- ti PE 82 0- 7- 00 07 MA ve NT 63 20 20 46 RT IN 65 16 17 09 0 16 PH 60 AR 0 MA MG CY TA #5 BL 91 ET ES 68 12 01 30 30 00 CO Ac CI 64 -3 -2 .0 00 L- ti TA 50 0- 7- 00 07 MA ve LO 52 20 20 46 RT IA 05 16 17 09 AM 4 19 PH AR 20 MA CY MG #5 TA 91 BL ET PA 68 12 01 30 30 00 CO Ac NT 64 -3 -2 .0 00 L- ti OP 50 0- 7- 00 07 MA ve RA 49 20 20 46 RT ZO 27 16 17 09 LE 0 20 PH AR SO MA D CY DR #5 40 91 MG TA B CE 16 12 01 30 30 00 WA Ac TI 57 -3 -2 .0 00 L- ti RI 10 0- 7- 00 08 MA ve ZI 40 20 20 83 RT NE 25 16 17 74 0 58 PH HC AR L MA 10 CY MG #5 91 TA BL ET GA 00 12 01 60 20 00 WA Ac S 53 -3 -2 .0 00 L- ti RE 61 0- 7- 00 08 MA ve LI 01 20 20 83 RT EF 90 16 17 72 1 08 PH 80 AR MA MG CY TA #5 BL 91 ET CH EW HY 00 12 01 [address] 40 -2 -2 .0 00 L- ti OC 60 7- 0- 00 02 MA ve OD 12 20 20 23 RT ON 30 16 17 84 -A 1 57 PH CE AR TA MA MD CY NO PH #5 EN 91 5- 32 5 VE 00 12 01 18 17 00 WA Ac NT 17 -2 -2 .0 00 L- ti OL 30 7- 0- 00 07 MA ve IN 68 20 20 46 RT 22 16 17 09 HF 0 21 PH A AR 90 MA CY MC G #5 IN 91 [place] LE R TR 50 12 01 30 30 00 WA Ac AZ 11 -2 -2 .0 00 L- ti OD 10 7- 0- 00 07 MA ve ON 43 20 20 46 RT E 30 16 17 09 50 1 22 PH AR MG MA CY TA BL #5 ET 91 VE 00 12 01 18 17 00 WA Ac NT 17 -0 -0 .0 00 L- ti OL 30 9- 9- 00 07 MA ve IN 68 20 20 45 RT 22 16 17 70 HF 0 08 PH A AR 90 MA CY MC G #5 IN 91 [place] LE R IP 00 02 0 No RA 48 -0 T- 70 5- Lo AL 20 20 ng BU 10 14 er T 1 0. Ac 5- ti 3( ve 2. 5) MG /3 ML Ib 62 02 0 No up 58 -0 ro 40 5- Lo fe 74 20 ng n 70 14 er 60 1 0M Ac G ti Ta ve bl et Vital Signs 10-30-2013 13:02 Name Value Interpretat Reference Comment ion Range Body 98.4 [degF] Temperature BP 92 mm[Hg] Diastolic BP Systolic 156 mm[Hg] Heart 84 /min Rate/Pulse O2% 96 % Respiratory 20 /min Rate Results Labs Lab Lab Date Result Refere Interp Status Commen Order Detail nces retati t Range on Drugs identified in Urine by Screen method (03-15-2017 10:18) Ampheta NEGATIV <1000 complet mine 017 E ed [Presen 10:18 ce] in Urine by Screen method NEGATIV <50 complet oxy 017 E ed delta-9 10:18 tetrahy drocann abinol [Presen ce] in Unspeci fied specime n Drugs identified in Urine by Screen method (02-14-2017 10:30) Ampheta NEGATIV <1000 complet mine 017 E ed [Presen 10:30 ce] in Urine by Screen method 11- NEGATIV <50 complet oxy 017 E ed delta-9 10:30 tetrahy drocann abinol [Presen ce] in Unspeci fied specime n Procedures Procedure DOS Code Location Performer Comment DRUG TEST 54555 [facility]V [facility] QUAL DIR INC INC OPTICAL OBS PER DAY HYALURONA J7325 [facility] N/DERIV 7 PHYSICIAN SYNVISC/S S GROUP YNVISC-ON E IA INJ 1 MG ARTHROCEN 41238 [facility] TESIS 7 PHYSICIAN ASPIR&/IN S GROUP J MAJOR JT/BURSA W/O US ANESTHESI 55763 [facility] FEEBACK A NOSE & 7 ANESTH [facility]ESSORY OF THE SINUSES BLUE NOS DECALCIFI 68825 [facility] C[facility] 7 [place] [address] [facility] SURG 7 [facility] ER JR PATHOLOGY GROSS&DAVI ROSCOPIC EXAM DRUG TEST G0481 [facility] DEFINITV [address] [facility] [address] ID INC INC METH P DAY 8-14 DRUG CL DRUG TEST 90271 [facility] PRSMV [facility] QUAL DIR INC INC OPTICAL OBS PER DAY ECG 15739 [facility] JR ROUTINE 7 [facility] W/LEAST P 12 LDS I&R ONLY ECG 85143 [facility] ROUTINE [facility] ECG INC INC W/LEAST 12 LDS TRCG ONLY W/O I&R BASIC 21110 [facility] METABOLIC [facility] PANEL INC INC CALCIUM TOTAL ARTHROCEN 66300 [facility] TESIS 7 PHYSICIAN ASPIR&/IN S GROUP J MAJOR JT/BURSA W/O US INJECTION J3301 [facility] 7 PHYSICIAN TRIAMCINO S GROUP LONE [place] N[place] [address] [place] [address] [facility] MAXILLOFA [facility] CIAL W/O INC INC CONTRAST MATERIAL MRI ANY 17782 [facility]INCE [facility] JT LOWER 7 [facility] EXTREM INC INC W/O CONTRAST MATRL DRUG TEST 03914 VINCE V[facility]CE PRSMV 7 [facility] QUAL DIR INC INC OPTICAL OBS PER DAY RADIOLOGI 31467 YAZMIN MENDES C 7 MEDICAL EXAMINATI IMAGING ON KNEE [address] LOWER 12004 YAZMIN MENDES EXTREMITY 7 MEDICAL W/O IMAGING CONTRAST ASS MATERIAL INJECTION 91966 [facility] 1 T[place] 7 PHYSICIAN PHYSICIAN S GROUP S GROUP SHEATH/LI GAMENT APONEUROS IS RADEX 92563 VINCE [facility] HAND 7 [facility] MINIMUM 3 INC INC VIEWS DRUG TEST 27594 VINCE [facility] PRSMV 7 [facility] QUAL DIR INC INC OPTICAL OBS PER DAY CV STRS 36353 VINCE HAND TST 7 [facility] RX CONT P ECG I&R ONLY UNCLASSIF J3490 [facility] IED DRUGS 7 [facility] INC INC CV STRS 77803 VINCE HAND TST 7 [facility] RX CONT P ECG W/O I&R CV STRS 85027 [facility] TST 7 [facility] XERS&/OR INC INC RX CONT ECG TRCG ONLY MYOCARDIA 65126 [facility] L SPECT [facility] MULTIPLE INC INC STUDIES ECG 17630 VINCE GARCIA JR ROUTINE 7 [facility] W/LEAST P 12 LDS I&R ONLY RADIOLOGI 13577 VINCE Jensen EXAM [facility] CHEST 2 INC INC VIEWS FRONTAL&L ATERAL FIBRIN 75227 [facility] DGRADJ [facility] PRODUCTS INC INC D-DIMER QUAL/SEMI EVER ECG 86104 [facility] ROUTINE [facility] ECG INC INC W/LEAST 12 LDS TRCG ONLY W/O I&R UNCLASSIF J3490 [facility]CE [facility] IED DRUGS 7 [facility] INC INC CUL BACT 43226 V[facility] AEROBIC 7 [facility] ADDL INC INC METHS DEFINITIV E EA ISOL CREATINE 44482 [facility] KINASE 7 [facility] TOTAL INC INC COMPREHEN 13889 V[facility] SIVE 7 [facility] METABOLIC INC INC PANEL DRUG TEST 16176 V[facility] PRSMV 7 [facility] QUAL [place]IR [place] [address] VINCE [facility] ABDOMEN & 7 [facility] PELVIS INC [place] W/[place] [address] V[facility] TROPONIN 7 [facility] QUANTITAT INC INC ONDINA BLOOD 13685 [facility]CE [facility] COUNT 7 [facility] COMPLETE INC INC AUTO&AUTO DIFRNTL WBC CULTURE 94332 [facility] BACTERIAL 7 [facility] BLOOD INC INC AEROBIC W/ID ISOLATES SUSCEPTIB 03398 [facility] LTY STDY 7 [facility] ANTIMICRB INC INC IAL MICRO/[place] [address] [facility] ANGIOGRAP 7 [facility] HY CHEST INC INC W/CONTRAS T/NONCONT RAST CREATINE 33948 [facility] KINASE MB 7 [facility] [place] [address] [facility] LACTATE 7 [place] [address] [facility] AMYLASE 7 [place] [address] V[facility] LIPASE 7 [facility] INC [place] THORAX 91405 [place] MENDES 7 MEDICAL W/CONTRAS IMAGING T ASS MATERIAL DRUG TEST 43344 [facility] PRSMV 7 [facility] QUAL DIR INC INC OPTICAL OBS PER DAY DRUG 48468 [facility] SCREENING 7 [facility] OPIOIDS INC INC & OPIATE ANALOGS 5/MORE REMOVAL 33712 [facility] SKN TAGS 7 PHYSICIAN 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 FIBRQ S GROUP TAGS ANY AREA UPW/15 DRUG TST G0477 [facility] PRESUMP;C 6 [facility] PBL BEING [place] [address] [facility] LIPASE 6 [facility] INC INC UNCLASSIF J3490 VIN[facility] G[facility] IED DRUGS 6 [facility] INC INC COMPREHEN 38955 V[facility] SIVE 6 [facility] [place] [address] [facility] AMYLASE 6 [facility] INC INC BLOOD 33790 V[facility] COUNT 6 [facility] COMPLETE INC INC AUTO&[place] [address] [place]GE ABDOMEN & 6 MEDICAL PELVIS IMAGING W/CONTRAS ASS T MATERIAL COLLECTIO 09802 [facility] N VENOUS 6 [facility] BLOOD INC INC VENIPUNCT URE LAPAROSCO 08099 [facility] PY SURG 6 PHYSICIAN CHOLECYST S GROUP ECTOMY LEVEL III 66212 [facility], [facility] SURG 6 [facility] PATHOLOGY GROSS&DAVI ROSCOPIC EXAM UNCLASSIF J3490 VIN[facility] IED DRUGS 6 [facility] INC INC PRESSURIZ 48033 [facility] ED/NONPRE 6 [facility] SSURIZED INC INC INHALATIO N TREATMENT ANES 23774 [facility] INTRAPERI 6 ANESTH TONEAL OF THE UPPER BLUE ABDOMEN W/LAPS NOS COMPREHEN 37911 [facility] SIVE 6 [facility] METABOLIC INC INC PANEL COLLECTIO 64916 VINCE GOMEZON N VENOUS 6 [facility] [place] [address] [facility]CE [facility] AMYLASE 6 [facility] INC INC COMPREHEN 99837 [facility] SIVE 6 [facility] METABOLIC INC INC PANEL BLOOD 09006 [facility] COUNT 6 [facility] COMPLETE INC INC AUTO&AUTO DIFRNTL WBC URNLS DIP 63863 VINCECHRISTINA CL[facility]KE 6 [facility] STICK/TAB INC [place] [address] [facility] INFUSION 6 [facility] THERAPY/P INC INC ROPHYLAXI S /DX 1ST TO 1 HR THERAPEUT 66597 V[facility] IC 6 [facility] INJECTION INC INC IV PUSH EACH NEW DRUG UNCLASSIF J3490 V[facility] IED DRUGS 6 [facility] [place] [address] V[facility] LIPASE 6 [facility] [place] [address] [facility] ABDOMEN & 6 [facility] PELVIS INC INC W/O CONTRAST MATERIAL UNCLASSIF J3490 V[facility]CE [facility] IED DRUGS 6 [facility] INC INC COLONOSCO 62018 [facility] CORRALES PY 6 PHYSICIAN [place] W/BIOPSY S GROUP SINGLE/MU LTIPLE COLSC FLX 11100 [facility] CORRALES W/RMVL 6 [facility] OF TUMOR S GROUP POLYP LESION SNARE TQ COLSC FLX 59593 [facility] CORRALES WITH 6 PHYSICIAN [place] DIRECTED S GROUP [place] [address] [facility], [facility] SURG [address] [place] [address] PATHOLOGY GROSS&DAVI ROSCOPIC EXAM ANES 87715 [place] [address] ANESTH INTESTINE OF THE BLUE ENDOSCOPY DISTAL DUODENUM SCREENING G0202 [facility] 6 MEDICAL [place] MAMMOGRAP IMAGING HY YASMANY ASS INCL CAD WHEN PERFORMD COMPUTER- 65492 [facility] AIDED 6 MEDICAL [place] DETECTION [place] [address] [place] MENDES ALL ABDOMINAL 6 MEDICAL REAL IMAGING TIME ASS W/[place] [address] V[facility]CE [facility] TROPONIN 6 [facility] QUANTITAT INC INC ONDINA BLOOD 47031 VINCE [facility] COUNT 6 [facility] COMPLETE INC INC AUTO&AUTO DIFRNTL WBC COMPREHEN 27368 V[facility] SIVE 6 [facility] METABOLIC INC INC PANEL RADIOLOGI 43526 V[facility]CE [facility] C EXAM 6 [facility] CHEST 2 INC INC VIEWS FRONTAL&L ATERAL CREATINE 11524 [facility]CE [facility] KINASE 6 [facility] TOTAL INC INC HEMOGLOBI 54646 V[facility]CE [facility] N 6 [facility] GLYCOSYLA INC INC ALLISON A1C LIPID 87870 [facility]CE [facility] PANEL 6 [facility] INC INC CREATINE 29912 V[facility]CE [facility] KINASE MB 6 [facility] FRACTION INC INC ONLY COLLECTIO 11516 V[facility]CE [facility] N VENOUS 6 [facility] BLOOD INC INC VENIPUNCT URE Encounters Encounter Start End Date Code Location Performer Type Date OFFICE 88919 [facility] OUTPATIEN 7 7 PHYSICIAN T VISIT S GROUP 25 MINUTES HOSPITAL [facility]INCE - 7 7 [facility] OUTPATIEN INC T OFFICE 82212 [facility] 7 7 PHYSICIAN T VISIT S GROUP 15 MINUTES HOSPITAL [facility]INCE - 7 7 [facility] OUTPATIEN [facility] T OFFICE 82137 [facility] 7 7 PHYSICIAN T [facility]ISIT S GROUP 10 MINUTES [facility] VINCE - 7 7 [facility]PATIEN [facility] T OFFICE 76007 [facility] 7 7 PHYSICIAN T [facility]ISIT S GROUP 10 MINUTES HOSPITAL VINCE - 7 7 [facility] T OFFICE 17441 [facility] 7 7 PHYSICIAN T VISIT S GROUP 15 MINUTES HOSPITAL [facility]INCE - 7 7 [facility] VINCE - 7 7 [facility]PATI[facility] T OFFICE 18695 [facility] OUTPAT[facility]EN 7 7 PHYSICIAN T VISIT S GROUP 10 MINUTES EMERGENCY 61513 TRACEY CHAPARRO 7 7 PHYSICIAN DEPARTMEN S, [employer] T VISIT HIGH/URGE NT SEVERITY HOSPITAL VINCE - 7 7 [facility] OUTPATIEN INC T OFFICE 46882 [facility] OUT[facility] 7 7 PHYSICIAN T VISIT S GROUP 15 MINUTES HOSPITAL VINCE - 7 7 [facility] INC T OFFICE 55301 [facility] 7 7 PHYSICIAN T VISIT S GROUP 15 MINUTES HOSPITAL VINCE - 7 7 [facility] INC T OFFICE 71115 [facility] OUTPATIEN 7 7 PHYSICIAN T VISIT S GROUP 15 MINUTES OFFICE 90000 [facility] OUT[facility] 7 7 PHYSICIAN T NEW 10 S GROUP MINUTES EMERGENCY 29299 [facility]CE 7 [facility]ISIT LOW/MODER SEVERITY [facility]OSPITAL VINCE - 7 7 [facility] VINCE - 7 7 [facility] INC T OFFICE 79500 [facility] OUTPAT[facility] 7 7 PHYSICIAN T VISIT S GROUP 15 MINUTES HOSPITAL VINCE - 6 6 [facility] INC T HOSPITAL VINCE - 6 6 [facility] OUTPAT[facility] INC [facility]OSPITAL VINCE - 6 6 [facility] OUTPATI[facility] INC T OFFICE 84930 [facility] OUTPATIEN 6 6 PHYSICIAN T VISIT S GROUP 10 MINUTES HOSPITAL VINCE - 6 6 [facility] OUTPATIEN INC T EMERGENCY 96667 TRACEY CARDONA, 6 6 PHYSICIAN JR [facility] S, [employer] T VISIT HIGH/URGE NT SEVERITY HOSPITAL VINCE - 6 6 [facility] OUTPATIEN INC T OFFICE 97433 [facility] OUTPATIEN 6 6 PHYSICIAN DAVI T VISIT S GROUP 15 MINUTES HOSPITAL VINCE - 6 6 [facility] OUTPATIEN INC T OFFICE 56585 [facility] OUTPATIEN 6 6 PHYSICIAN T VISIT S GROUP 10 MINUTES HOSPITAL VINCE - 6 6 [facility] OUTPATIEN [facility] T OFFICE 78025 [facility] OUTPATIEN 6 6 PHYS[place] T VISIT S GROUP 15 MINUTES [facility] VINCE - 6 6 [facility] OUTPATIEN [facility] T OFFICE 21218 [facility] OUTPATIEN 6 6 PHYSICIAN DAVI T VISIT S GROUP 15 MINUTES [facility] VINCE - 6 6 [facility]PATIEN [facility] T OFFICE 64136 [facility] DAVI T VISIT S GROUP 15 MINUTES Emergency ALEX HERNANDEZ DO (ER) 4 12:21 4 13:13 [facility]
--- OUTSIDE RECORDS SUMMARY | 2017-04-20 18:01 | External Medical Summary Rpt ---
Author Author , YFN Aguiar YFN Address Unknown Phone [email or web address] Care Team Providers Care Laundromat Manager Name Role Phone ALLRAN JR, ALLRAN JR Unavailable Unavailable ALLRAN JR AMERICA, ALLRAN Unavailable Unavailable JR AMERICA BEINEKE KATYA, BEINEKE Unavailable Unavailable KATYA BESSON, BESSON Unavailable Unavailable MENDES, MENDES Unavailable Unavailable MENDES ALL, MENDES ALL Unavailable Unavailable [facility] JORGE JORGE Unavailable Unavailable FEEBACK, FEEBACK Unavailable Unavailable JR IZABELLA CARDONA, Unavailable Unavailable JR IZABELLA CARDONA GAINEY Unavailable Unavailable KRYSTA DAVI, KRYSTA Unavailable Unavailable DAVI [facility] Unavailable Unavailable [facility] P, P [facility], Unavailable Unavailable [facility] Unavailable Unavailable [facility], [facility] FERNANDEZ, FERNANDEZ Unavailable Unavailable [...] Diagnosis DOS Provider Status I10 ESSENTIAL 02-14-2017 [facility] PRIMARY PHYSICIANS HYPERTENSIO GROUP N M545 LOW BACK 02-14-2017 [facility] PAIN PHYSICIANS GROUP [id number] OTHER LONG 02-14-2017 [facility] TERM PHYSICIANS CURRENT GROUP DRUG THERAPY J309 ALLERGIC 02-10-2017 [facility] RHINITIS PHYSICIANS UNSPECIFIED GROUP J329 CHRONIC 02-10-2017 [facility] SINUSITIS PHYSICIANS UNSPECIFIED GROUP 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 [facility] NASAL PHYSICIANS SEPTUM GROUP M1712 UNILATERAL 02-02-2017 [facility] PRIMARY PHYSICIANS OSTEOARTHRI GROUP TIS LEFT KNEE J320 CHRONIC 01-10-2017 [facility] MAXILLARY PHYSICIANS SINUSITIS GROUP J322 CHRONIC 01-10-2017 [facility] ETHMOIDAL PHYSICIANS SINUSITIS GROUP [id number] ENCOUNTER 01-10-2017 [facility] CARIOVASCUL AR EXAM H71856 ENCOUNTER 01-10-2017 [facility] RESPIRATORY EXAM [id number] ENCOUNTER 01-10-2017 [facility] LABORATORY EXAM M2342 LOOSE BODY 01-04-2017 [facility] IN KNEE PHYSICIANS LEFT KNEE GROUP 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 POPLITEAL GROUP SPACE GUZMÁN LEFT KNEE J321 CHRONIC 12-29-2016 [place] FRONTAL MEDICAL SINUSITIS IMAGING ASS J343 HYPERTROPHY 12-29-2016 [facility] NASAL MEDICAL TURBINATES IMAGING ASS J339 NASAL POLYP 12-22-2016 [facility] PHYS[facility]ANS UNSPECIFIED GROUP M05896 EFFUSION 12-22-2016 [place] UNSPECIFIED MEDICAL KNEE IMAGING ASS T00226 PAIN IN 12-22-2016 [place] LEFT KNEE MEDICAL IMAGING ASS M1732 UNILATERAL 12-01-2016 [facility], TIC PLLC OSTEOARTHRI TIS LT KNEE S35467 EFFUSION 12-01-2016 [place] LEFT KNEE MEDICAL IMAGING ASS B9757EX UNS INJURY 12-01-2016 [facility] LOWER [facility], LEG INITIAL PLLC ENCOUNTER [id number] PRIMARY 11-23-2016 [facility] OSTEOARTHRI PHYSICIANS TIS GROUP UNSPECIFIED HAND D90278 PAIN IN 11-23-2016 [place] RIGHT MEDICAL FINGERS IMAGING ASS O26623 TRIGGER 11-08-2016 [facility] FINGER PHYSICIANS RIGHT INDEX GROUP FINGER D45455 TRIGGER 11-08-2016 [facility] FINGER PHYSICIANS RIGHT RING GROUP FINGER R079 CHEST PAIN 11-03-[address] 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 L989 DISORDER 10-14-2016 [facility] THE SKIN & PHYSICIANS SUBCUTANEOU GROUP S TISSUE UNS K8000 CALCULUS GB 09-12-2016 [facility] W/ACUTE [facility] CHOLECYST INC W/O OBSTRUCTION R1013 EPIGASTRIC 09-12-2016 [place] PAIN MEDICAL IMAGING ASS S075NAD CONTUSION 09-12-2016 [facility] ABDOMINAL IMAGING ASS WALL INITIAL ENCOUNTER 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 K8010 CALCULUS GB 09-07-2016 [facility] W/CHRONIC LLC CHOLECYST W/O OBSTRUCTION K8080 OTHER 09-07-2016 [facility] CHOLELITHIA PHYSICIANS SIS WITHOUT GROUP OBSTRUCTION K819 CHOLECYSTIT 09-07-2016 [facility] ANESTH OF UNSPECIFIED [facility] D126 BENIGN 09-02-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 GROUP UNSPECIFIED K8020 CALCULUS GB 08-27-2016 [facility] W/O PHYSICIANS, CHOLECYSTIT PLLC IS W/O OBSTRUCTION Z720 TOBACCO USE 08-27-2016 [facility] M5416 RADICULOPAT 08-24-2016 [facility] HY LUMBAR PHYSICIANS REGION GROUP D124 BENIGN 08-23-2016 [facility]OP[facility]M OF [facility] DESCENDING COLON 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 K5790 DIVERTICULO 08-23-2016 [facility] SIS PART PHYSICIANS UNS W/O GROUP PERF/ABSC W/O BLEED Z1211 ENCOUNTER 08-23-2016 [facility] SCREENING PHYSICIANS MALIGNANT GROUP NEOPLASM OF COLON V44680 UNSPECIFIED 08-20-2016 [facility] ASTHMA PHYSICIANS UNCOMPLICAT GROUP ED Z1231 ENCOUNTER 08-15-2016 [place] SCREENING MEDICAL MAMMO MALIG IMAGING ASS NEOPLASM BREAST R1011 RIGHT UPPER 07-07-2016 [place] QUADRANT [facility]ICAL PAIN IMAGING ASS E663 OVERWEIGHT 07-05-2016 [facility] 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 305.1 305.1 02-05-2014 [facility] TOBACCO USE [facility] 466.0 466.0 ACUTE 10-30-2013 [facility] BRONCHITIS [facility] 493.90 493.90 10-30-2013 [facility] ASTHMA, [facility] UNSPECIFIED Hospital J84.114 ACUTE INTERSTITIA L [...] TR 50 06 07 30 30 00 TN Ac AZ 11 -2 -1 .0 00 [...] 17 17 47 E 5 12 PH MT AR OP MA CY 50 #5 MC [...] LO 54 06 07 90 90 00 TN Ac VA 45 -2 -1 .0 00 L- ti ST 80 1- 4- 00 07 MA ve AT 93 20 20 49 RT IN 81 17 17 47 6 14 PH 10 AR MA MG CY TA #5 BL 91 ET VE 00 06 07 18 17 00 TN Ac NT 17 -2 -1 .0 00 L- ti OL 30 1- 4- 00 07 MA ve IN 68 20 20 49 RT 22 17 17 47 HF 0 15 PH A AR 90 MA CY MC G #5 IN 91 [place] LE R PA 68 06 07 30 30 00 TN Ac NT 64 -2 -1 .0 00 L- ti OP 50 1- 4- 00 07 MA ve RA 49 20 20 49 RT ZO 25 17 17 47 LE 4 16 PH AR SO MA D CY DR #5 40 91 MG TA B BU 00 06 07 60 30 00 TN Ac MT 59 -2 -1 .0 00 L- ti OP 13 1- 4- 00 07 MA ve IO 54 20 20 49 RT N 10 17 17 47 HC 5 18 PH L AR SR MA CY 15 0 #5 MG 91 TA BL ET HY 00 06 07 [address] 40 -2 -1 .0 00 L- ti OC 60 1- 4- 00 02 MA ve OD 12 20 20 24 RT ON 50 17 17 08 -A 1 23 PH CE AR TA MA SD CY NO PH #5 N 91 10 -3 25 VE 00 06 07 18 17 00 TN Ac NT 17 -0 -0 .0 00 L- ti OL 30 8- 7- 00 07 MA ve IN 68 20 20 47 RT 22 17 17 65 HF 0 70 PH A AR 90 MA CY MC G #5 IN 91 [place] LE R BU 59 05 06 4. 28 00 TN Ac TR 01 -2 -2 00 00 L- ti AN 10 5- 3- 0 04 MA ve S 75 20 20 53 RT 15 80 17 17 01 4 65 PH MC AR G/ MA HR CY PA #5 TC 91 H TR 50 05 06 30 30 00 TN Ac AZ 11 -2 -1 .0 00 L- ti OD 10 1- 6- 00 07 MA ve ON 43 20 20 47 RT E 30 17 17 87 50 1 66 PH AR MG MA CY TA BL #5 ET 91 BU 00 05 06 60 30 00 WA Ac MT 59 -2 -1 .0 00 L- ti OP 13 1- 6- 00 07 MA ve IO 54 20 20 48 RT N 10 17 17 44 HC 5 05 PH L AR SR MA CY 15 0 #5 MG 91 TA BL ET GA 00 05 06 90 30 00 TN Ac BA 22 -2 -1 .0 00 L- ti PE 82 1- 6- 00 07 MA ve NT 63 20 20 47 RT IN 65 17 17 87 0 67 PH 60 AR 0 MA MG CY TA #5 BL 91 ET PA 68 05 06 30 30 00 TN Ac NT 64 -2 -1 .0 00 L- ti OP 50 1- 6- 00 07 MA ve RA 49 20 20 47 RT ZO 25 17 17 87 LE 4 70 PH AR SO MA D CY DR #5 40 91 MG TA B CE 16 05 06 90 90 00 TN Ac TI 57 -2 -1 .0 00 L- ti RI 10 3- 6- 00 08 MA ve ZI 40 20 20 83 RT NE 25 17 17 95 0 77 PH HC AR L MA 10 CY MG #5 91 TA BL ET LI 68 05 06 90 90 00 TN Ac SI 64 -2 -1 .0 00 L- ti NO 50 3- 6- 00 07 MA ve MT 55 20 20 48 RT IL 15 17 17 95 5 4 01 PH AR MG MA CY TA BL #5 ET 91 HY 00 05 06 60 [address] 40 -2 -1 .0 00 L- ti OC 60 3- 6- 00 02 MA ve OD 12 20 20 24 RT ON 30 17 17 04 -A 1 36 PH CE AR TA MA SD CY NO PH #5 EN 91 5- 32 5 MO 31 05 06 30 30 00 TN Ac NT 72 -1 -1 .0 00 L- ti EL 20 9- 6- 00 07 MA ve UK 72 20 20 48 RT 61 17 17 88 T 0 35 PH SO AR D MA 10 CY MG #5 91 TA BL ET FL 60 05 06 16 30 00 TN Ac UT 43 -1 -1 .0 00 L- ti IC 20 9- 6- 00 07 MA ve 26 20 20 48 RT ON 41 17 17 88 E 5 37 PH MT AR OP MA CY 50 #5 MC 91 G SP RA Y BU 59 04 05 4. 28 00 TN Ac TR 01 -2 -2 00 00 L- ti AN 10 7- 6- 0 04 MA ve S 75 20 20 53 RT 15 80 17 17 01 4 65 PH MC AR G/ MA HR CY PA #5 TC 91 H HY 00 04 05 30 [address] 37 -2 -2 .0 00 L- ti OC 80 7- 6- 00 07 MA ve HL 81 20 20 48 RT OR 00 17 17 48 OT 5 33 PH HI AR AZ MA ID CY E 12 #5 .5 91 MG CP CE 16 04 05 30 30 00 TN Ac TI 57 -2 -2 .0 00 L- ti RI 10 7 6 08 MA ve ZI 40 20 20 83 RT NE 25 17 17 82 0 24 PH HC AR L MA 10 CY MG #5 91 TA BL ET HY 00 04 05 60 [address] 40 -2 -1 .0 00 L- ti OC 60 9 02 MA ve OD 12 20 20 24 RT ON 30 17 17 00 -A 1 28 PH CE AR TA MA SD CY NO PH #5 EN 91 5- 32 5 PA 68 04 05 30 30 00 TN Ac NT 64 -2 -1 .0 00 L- ti OP 50 07 MA ve RA 49 20 20 47 RT ZO 25 17 17 87 LE 4 70 PH AR SO MA D CY DR #5 40 91 MG TA B TR 50 04 05 30 30 00 TN Ac AZ 11 -2 -1 .0 00 L- ti OD 10 9 07 MA ve ON 43 20 20 47 RT E 30 17 17 87 50 1 66 PH AR MG MA CY TA BL #5 ET 91 VE 00 04 05 18 17 00 TN Ac NT 17 -2 -1 .0 00 L- ti OL 30 07 MA ve IN 68 20 20 47 RT 22 17 17 65 HF 0 70 PH A AR 90 MA CY MC G #5 IN 91 [place] LE R BU 00 04 05 60 30 00 TN Ac MT 59 -2 -1 .0 00 L- ti OP 13 - 9 07 MA ve IO 54 20 20 48 RT N 10 17 17 44 HC 5 05 PH L AR SR MA CY 15 0 #5 MG 91 TA BL ET GA 00 04 05 90 30 00 TN Ac BA 22 -1 -1 .0 00 L- ti PE 82 9- 2- 00 07 MA ve NT 63 20 20 47 RT IN 65 17 17 87 0 67 PH 60 AR 0 MA MG CY TA #5 BL 91 ET BU 59 03 04 4. 28 00 TN Ac TR 01 -3 -2 00 00 L- ti AN 10 0- 8- 0 04 MA ve S 75 20 20 52 RT 15 80 17 17 98 4 13 PH MC AR G/ MA HR CY PA #5 TC 91 H MO 54 03 04 30 30 00 TN Ac NT 45 -3 -2 .0 00 L- ti EL 80 1- 8- 00 07 MA ve UK 89 20 20 47 RT 01 17 17 28 T 0 24 PH SO AR D MA 10 CY MG #5 91 TA BL ET FL 60 03 04 16 30 00 TN Ac UT 43 -3 -2 .0 00 L- ti IC 20 1- 8- 00 07 MA ve 26 20 20 46 RT ON 41 17 17 77 E 5 74 PH MT AR OP MA CY 50 #5 MC 91 G SP RA Y BU 00 03 04 60 30 00 TN Ac MT 59 -2 -2 .0 00 L- ti OP 13 8- 1- 00 07 MA ve IO 54 20 20 47 RT N 10 17 17 87 HC 5 69 PH L AR SR MA CY 15 0 #5 MG 91 TA BL ET VE 00 03 04 18 17 00 TN Ac NT 17 -2 -2 .0 00 L- ti OL 30 8- 1- 00 07 MA ve IN 68 20 20 47 RT 22 17 17 87 HF 0 68 PH A AR 90 MA CY MC G #5 IN 91 [place] LE R LO 54 03 04 90 90 00 TN Ac VA 45 -2 -2 .0 00 L- ti ST 80 7- 1- 00 07 MA ve AT 93 20 20 47 RT IN 81 17 17 87 0 65 PH 10 AR MA MG CY TA #5 BL 91 ET TR 50 03 04 30 30 00 TN Ac AZ 11 -2 -2 .0 00 L- ti OD 10 7- 1- 00 07 MA ve ON 43 20 20 47 RT E 30 17 17 87 50 1 66 PH AR MG MA CY TA BL #5 ET 91 GA 00 03 04 90 30 00 TN Ac BA 22 -2 -2 .0 00 L- ti PE 82 7- 1- 00 07 MA ve NT 63 20 20 47 RT IN 65 17 17 87 0 67 PH 60 AR 0 MA MG CY TA #5 BL 91 ET PA 68 03 04 30 30 00 TN Ac NT 64 -2 -2 .0 00 L- ti OP 50 7- 1- 00 07 MA ve RA 49 20 20 47 RT ZO 27 17 17 87 LE 0 70 PH AR SO MA D CY DR #5 40 91 MG TA B HY 00 03 04 60 [address] 40 -2 -2 .0 00 L- ti OC 60 7- 1- 00 02 MA ve OD 12 20 20 23 RT ON 30 17 17 96 -A 1 82 PH CE AR TA MA SD CY NO PH #5 EN 91 5- 32 5 MT 00 03 04 10 5 00 TN Ac ED 14 -0 -0 .0 00 L- ti NI 39 9- 7- 00 07 MA ve SO 73 20 20 47 RT NE 80 17 17 52 5 61 PH 20 AR MA MG CY TA #5 BL 91 ET VE 00 03 04 18 17 00 TN Ac NT 17 -1 -0 .0 00 L- ti OL 30 5- 7- 00 07 MA ve IN 68 20 20 47 RT 22 17 17 65 HF 0 70 PH A AR 90 MA CY MC G #5 IN 91 [place] LE R HY 00 02 03 60 [address] 40 -2 -2 .0 00 L- ti OC 60 4- 4- 00 02 MA ve OD 12 20 20 23 RT ON 30 17 17 92 -A 1 76 PH CE AR TA MA SD CY NO PH #5 EN 91 5- 32 5 LO 54 02 03 30 30 00 TN Ac VA 45 -2 -2 .0 00 L- ti ST 80 4- 4- 00 07 MA ve AT 93 20 20 47 RT IN 81 17 17 28 0 22 PH 10 AR MA MG CY TA #5 BL 91 ET PA 68 02 03 30 30 00 TN Ac NT 64 -2 -2 .0 00 L- ti OP 50 4- 4- 00 07 MA ve RA 49 20 20 47 RT ZO 27 17 17 28 LE 0 23 PH AR SO MA D CY DR #5 40 91 MG TA B MO 54 02 03 30 30 00 TN Ac NT 45 -2 -2 .0 00 L- ti EL 80 4- 4- 00 07 MA ve UK 89 20 20 47 RT 01 17 17 28 T 0 24 PH SO AR D MA 10 CY MG #5 91 TA BL ET TR 50 02 03 30 30 00 TN Ac AZ 11 -2 -2 .0 00 L- ti OD 10 4- 4- 00 07 MA ve ON 43 20 20 47 RT E 30 17 17 28 50 1 25 PH AR MG MA CY TA BL #5 ET 91 BU 60 02 03 60 30 00 WA Ac MT 50 -2 -2 .0 00 L- ti OP 50 4- 4- 00 07 MA ve IO 15 20 20 47 RT N 80 17 17 28 HC 1 26 PH L AR 75 MA CY MG #5 TA 91 BL ET CE 16 02 03 30 30 00 TN Ac TI 57 -2 -2 .0 00 L- ti RI 10 4- 4- 00 08 MA ve ZI 40 20 20 83 RT NE 25 17 17 82 0 24 PH HC AR L MA 10 CY MG #5 91 TA BL ET BU 59 02 03 4. 28 00 TN Ac TR 01 -2 -2 00 00 L- ti AN 10 4- 4- 0 04 MA ve S 75 20 20 52 RT 15 80 17 17 94 4 73 PH MC AR G/ MA HR CY PA #5 TC 91 H VE 00 02 03 18 17 00 TN Ac NT 17 -1 -1 .0 00 L- ti OL 30 9- 7- 00 07 MA ve IN 68 20 20 46 RT 22 17 17 09 HF 0 21 PH A AR 90 MA CY MC G #5 IN 91 [place] LE R ME 59 01 02 21 5 00 TN Ac TH 74 -3 -2 .0 00 L- ti YL 60 0- 4- 00 07 MA ve MT 00 20 20 46 RT ED 10 17 17 77 NI 3 73 PH SO AR LO MA NE CY 4 #5 MG 91 DO SE PK FL 60 01 02 16 30 00 TN Ac UT 43 -3 -2 .0 00 L- ti IC 20 0- 4- 00 07 MA ve 26 20 20 46 RT ON 41 17 17 77 E 5 74 PH MT AR OP MA CY 50 #5 MC 91 G SP RA Y MO 54 01 02 30 30 00 TN Ac NT 45 -3 -2 .0 00 [...] PA 68 01 02 30 30 00 TN Ac NT 64 -2 -2 .0 00 L- ti OP 50 7- 4- 00 07 MA ve RA 49 20 20 46 RT ZO 27 17 17 09 LE 0 20 PH AR SO MA D CY DR #5 40 91 MG TA B CE 16 01 02 30 30 00 TN Ac TI 57 -2 -2 .0 00 L- ti RI 10 7- 4- 00 08 MA ve ZI 40 20 20 83 RT NE 25 17 17 74 0 58 PH HC AR L MA 10 CY MG #5 91 TA BL ET ES 68 01 02 30 30 00 TN Ac CI 64 -2 -2 .0 00 L- ti TA 50 7- 4- 00 07 MA ve LO 52 20 20 46 RT MT 05 17 17 09 AM 4 19 PH AR 20 MA CY MG #5 TA 91 BL ET GA 00 01 02 90 30 00 TN Ac BA 22 -2 -2 .0 00 L- ti PE 82 7- 4- 00 07 MA ve NT 63 20 20 46 RT IN 65 17 17 09 0 16 PH 60 AR 0 MA MG CY TA #5 BL 91 ET CO 58 01 02 12 4 00 TN Ac DE 65 -2 -2 0. 00 L- ti IN 70 7- 4 04 MA ve E- 50 20 20 0 52 RT 01 17 17 91 AI 6 78 PH FE AR N MA 10 CY -1 00 #5 91 MG /5 ML HY 00 01 02 60 [address] 40 -2 -2 .0 00 L- ti OC 60 7- 4- 00 02 MA ve OD 12 20 20 23 RT ON 30 17 17 88 -A 1 94 PH CE AR TA MA SD CY NO PH #5 EN 91 5- 32 5 EQ 49 01 02 28 28 00 TN Ac 03 -3 -2 .0 00 L- ti NI 50 0- 4- 00 08 MA ve CO 19 20 20 83 RT TI 50 17 17 78 NE 2 86 PH AR 14 MA CY MG /2 #5 4H 91 R PA TC H VE 00 01 02 18 17 00 TN Ac NT 17 -1 -1 .0 00 L- ti OL 30 9- 7- 00 07 MA ve IN 68 20 20 46 RT 22 17 17 09 HF 0 21 PH A AR 90 MA CY MC G #5 IN 91 [place] LE R PO 62 01 02 52 30 00 TN Ac LY 17 -1 -1 7. 00 [...] LO 54 01 02 30 30 00 TN Ac VA 45 -2 -1 .0 00 [...] GA 00 12 01 90 30 00 TN Ac BA 22 -3 -2 .0 00 L- ti PE 82 0- 7- 00 07 MA ve NT 63 20 20 46 RT IN 65 16 17 09 0 16 PH 60 AR 0 MA MG CY TA #5 BL 91 ET ES 68 12 01 30 30 00 TN Ac CI 64 -3 -2 .0 00 L- ti TA 50 0- 7- 00 07 MA ve LO 52 20 20 46 RT MT 05 16 17 09 AM 4 19 PH AR 20 MA CY MG #5 TA 91 BL ET PA 68 12 01 30 30 00 TN Ac NT 64 -3 -2 .0 00 [...] 1 57 PH CE AR TA MA SD CY NO PH #5 EN 91 5- [...] DOS Code Location Performer Comment DRUG TEST 36801 [facility] PR[facility]V [facility] QUAL DIR INC INC OPTICAL OBS PER DAY HYALURONA J7325 [facility] N/DERIV 7 PHYSICIAN SYNVISC/S S GROUP YNVISC-ON E IA INJ 1 MG ARTHROCEN 17932 [facility] TESIS 7 PHYSICIAN ASPIR&/IN S GROUP J MAJOR JT/BURSA W/O US ANESTHESI 72619 [facility] FEEBACK A NOSE & 7 ANESTH ACCESSORY OF THE SINUSES BLUE NOS DECALCIFI 67854 [facility] C[facility] 7 [place] [address] [facility] SURG 7 [facility] JR PATHOLOGY GROSS&DAVI ROSCOPIC EXAM DRUG TEST G0481 [facility] DEFINITV [address] [facility] [address] [facility] [address] ID INC INC METH P DAY 8-14 DRUG CL DRUG TEST 50354 [facility] PR[facility]V [facility] QUAL DIR INC INC OPTICAL OBS PER DAY ECG 93988 [facility] GARCIA JR ROUTINE 7 [facility] W/LEAST P 12 LDS I&R ONLY ECG 85551 [facility] ROUTINE [facility] ECG INC INC W/LEAST 12 LDS TRCG ONLY W/O I&R BASIC 24974 [facility] METABOLIC [facility] PANEL INC INC CALCIUM TOTAL ARTHROCEN 56426 [facility] TESIS 7 PHYSICIAN ASPIR&/IN S GROUP J MAJOR JT/BURSA W/O US INJECTION J3301 [facility] 7 PHYSICIAN TRIAMCINO S GROUP LONE [place] [address] [place] [address] [facility] MAXILLOFA [facility] CIAL W/O INC INC CONTRAST MATERIAL MRI ANY 25892 [facility] JT LOWER [facility] EXTREM INC INC W/O CONTRAST MATRL DRUG TEST 45791 V[facility] PRSMV [facility] QUAL DIR INC INC OPTICAL OBS PER DAY RADIOLOGI 82302 [facility] MENDES C 7 MEDICAL EXAMINATI IMAGING ON KNEE [address] LOWER 91341 [facility] MENDES EXTREMITY 7 MEDICAL W/O IMAGING CONTRAST ASS MATERIAL INJECTION 45501 [facility] 1 [place] 7 PHYSICIAN PHYSICIAN S GROUP S GROUP SHEATH/LI GAMENT APONEUROS IS RADEX 05141 [facility] HAND 7 [facility] MINIMUM 3 INC INC VIEWS DRUG TEST 85173 [facility] PRSMV 7 [facility] QUAL DIR INC INC OPTICAL OBS PER DAY CV STRS 93527 [facility] HAND TST 7 [facility] RX CONT P ECG I&R ONLY UNCLASSIF J3490 [facility] IED DRUGS 7 [facility] INC INC CV STRS 75165 [facility] TST 7 [facility] RX CONT P ECG W/O I&R CV STRS 16802 [facility] TST 7 [facility] XERS&/OR INC INC RX CONT ECG TRCG ONLY MYOCARDIA 92177 [facility] L SPECT 7 [facility] MULTIPLE INC INC STUDIES ECG 09157 V[facility] GARCIA JR ROUTINE 7 [facility] W/LEAST P 12 LDS I&R ONLY RADIOLOGI 47145 V[facility]CE Jensen EXAM 7 [facility] CHEST 2 INC INC VIEWS FRONTAL&L ATERAL FIBRIN 48376 [facility] DGRADJ 7 [facility] PRODUCTS INC INC D-DIMER QUAL/SEMI EVER ECG 16651 [facility] ROUTINE 7 [facility] ECG INC INC W/LEAST 12 LDS TRCG ONLY W/O I&R UNCLASSIF J3490 [facility] IED DRUGS 7 [facility] INC INC CUL BACT 89582 [facility] AEROBIC 7 [facility] ADDL INC INC METHS DEFINITIV E EA ISOL CREATINE 34907 [facility] KINASE 7 [facility] TOTAL INC INC COMPREHEN 36333 V[facility] SIVE 7 [facility] METABOLIC INC INC PANEL DRUG TEST 46005 [facility] PRSMV [facility] QUAL [place] [address] [facility] ABDOMEN & 7 [facility] PELVIS INC INC W/[place] [address] [facility] TROPONIN 7 [facility] QUANTITAT INC INC ONDINA BLOOD 04966 [facility] COUNT 7 [facility] COMPLETE INC INC AUTO&AUTO DIFRNTL WBC CULTURE 41782 [facility] BACTERIAL 7 [facility] BLOOD INC INC AEROBIC W/ID ISOLATES SUSCEPTIB 42965 [facility] LTY STDY 7 [facility] ANTIMICRB INC INC IAL MICRO/[place] [address] [facility] ANGIOGRAP 7 [facility] HY CHEST INC INC W/CONTRAS T/NONCONT RAST CREATINE 88157 [facility] KINASE MB 7 [facility] [place] [address] [facility] LACTATE 7 [place] [address] [facility] AMYLASE 7 [place] [address] [facility] LIPASE 7 [facility] INC INC CT THORAX [address] [place] MENDES 7 MEDICAL W/CONTRAS IMAGING T ASS MATERIAL DRUG TEST 08746 [facility] PRSMV 7 [facility] QUAL DIR INC INC OPTICAL OBS PER DAY DRUG 47300 [facility] SCREENING 7 [facility] OPIOIDS INC INC & OPIATE ANALOGS 5/MORE REMOVAL 77748 [facility] KRYSTA SKN TAGS 7 PHYSICIAN STUDENT SERVICES COUNSELOR FIBRQ S GROUP TAGS ANY AREA UPW/15 DRUG TST G0477 [facility] PRESUMP;C 6 [facility] PBL BEING [place] [address] [facility] LIPASE 6 [facility] INC INC UNCLASSIF J3490 V[facility] GOMEZON IED DRUGS 6 [facility] INC INC COMPREHEN 99336 [facility] SIVE 6 [facility] [place] [address] V[facility] AMYLASE 6 [facility] INC INC BLOOD 49815 [facility] COUNT 6 [facility] COMPLETE INC INC AUTO&[place] [address] [place] OJRGE ABDOMEN & 6 MEDICAL PELVIS IMAGING W/CONTRAS ASS T MATERIAL COLLECTIO 37286 [facility] N VENOUS 6 [facility] BLOOD INC INC VENIPUNCT URE LAPAROSCO 35299 [facility] PY SURG 6 PHYSICIAN CHOLECYST S GROUP ECTOMY LEVEL III 73083 [facility], [facility] SURG 6 [facility] PATHOLOGY GROSS&DAVI ROSCOPIC EXAM UNCLASSIF J3490 VINCE GOMEZON IED DRUGS 6 [facility] INC INC PRESSURIZ 21354 VINCE GOME[facility] ED/NONPRE 6 [facility] SSURIZED INC INC INHALATIO N TREATMENT ANES 86614 [facility] IN[facility] 6 ANESTH TONEAL OF THE UPPER BLUE ABDOMEN W/LAPS NOS COMPREHEN 49367 [facility] SIVE 6 [facility] METABOLIC INC INC PANEL COLLECTIO 89359 VINCE GOMEZON N VENOUS 6 [facility] [place] [address] [facility] AMYLASE 6 [facility] INC INC COMPREHEN 11195 [facility] SIVE 6 [facility] METABOLIC INC INC PANEL BLOOD 02547 [facility] COUNT 6 [facility] COMPLETE INC INC AUTO&AUTO DIFRNTL WBC URNLS DIP 91020 VINCECHRISTINA CL[facility]KE 6 [facility] STICK/TAB INC [place] [address] [facility]IN[facility] INFUSION 6 [facility] THERAPY/P INC INC ROPHYLAXI S /DX 1ST TO 1 HR THERAPEUT 86228 V[facility] IC 6 [facility] INJECTION INC INC IV PUSH EACH NEW DRUG UNCLASSIF J3490 VINCE [facility] IED DRUGS 6 [facility] [place] [address] VINCE [facility] LIPASE 6 [facility] [place] [address] VINCE [facility] ABDOMEN & 6 [facility] PELVIS INC INC W/O CONTRAST MATERIAL UNCLASSIF J3490 VINCE [facility] IED DRUGS 6 [facility] INC INC COLONOSCO 09327 [facility] CORRALES PY 6 PHYSICIAN [place] W/BIOPSY S GROUP SINGLE/MU LTIPLE COLSC FLX [address] [facility] W/RMVL 6 [place] OF TUMOR S GROUP [place] [address] [facility] WITH 6 PHYS[place] DIRECTED S GROUP [place] [address] [facility], PRO[facility] SURG [address] [place] [address] PATHOLOGY GROSS&DAVI ROSCOPIC EXAM ANES 501[address] [place] [address] ANESTH INTESTINE OF THE BLUE ENDOSCOPY DISTAL DUODENUM SCREENING G0202 [facility] 6 MEDICAL [place] MAMMOGRAP IMAGING HY YASMANY ASS INCL CAD WHEN PERFORMD COMPUTER- 52803 [facility] AIDED 6 MEDICAL [place] DETECTION [place] [address] [place] MENDES ALL ABDOMINAL 6 MEDICAL REAL IMAGING TIME ASS W/[place] [address] VINCE [facility] TROPONIN 6 [facility] [facility] INC ONDINA [facility]LOOD 81668 VINCE [facility] COUNT 6 [facility] COMPLETE INC INC AUTO&AUTO DIFRNTL WBC COMPREHEN 19496 [facility] SIVE 6 [facility] METABOLIC INC INC PAN[facility] RADIOLOGI 99089 VINCE [facility] C EXAM 6 [facility] CHEST 2 INC INC VIEWS FRONTAL&L ATERAL CREATINE 17471 [facility] KINASE 6 [facility] TOTAL INC INC HEMOGLOBI 16944 [facility]CE [facility] N 6 [facility] GLYCOSYLA INC INC ALLISON A1C LIPID 43993 [facility]CE [facility] PANEL 6 [facility] INC INC CREATINE 93327 V[facility]CE [facility] KINASE MB 6 [facility] FRACTION INC INC ONLY COLLECTIO 51719 V[facility] N VENOUS 6 [facility] BLOOD INC INC VENIPUNCT URE Encounters Encounter Start End Date Code Location Performer Type Date OFFICE 96805 [facility]STA OUTPATIEN 7 7 PHYSICIAN T VISIT S GROUP 25 MINUTES [facility]CE - 7 7 [facility] T OFFICE 80783 [facility] FERNANDEZ OUTPATIEN 7 7 PHYSICIAN T [facility]ISIT S GROUP 15 MINUTES [facility]OSP[facility] VINCE - 7 7 [facility] T OFFICE 24535 [facility] OUTPATIEN 7 7 PHYSICIAN T [facility]ISIT S GROUP 10 MINUTES [facility] VINCE - 7 7 [facility] T OFFICE 24282 [facility] PETTEY OUTPATIEN 7 7 PHYSICIAN T [facility]ISIT S GROUP 10 MINUTES [facility]OSPITAL VINCE - 7 7 [facility] T OFFICE 84282 [facility] OUTPATIEN 7 7 PHYSICIAN T [facility]ISIT S GROUP 15 MINUTES [facility]OSPITAL VINCE - 7 7 [facility] VINCE - 7 7 [facility] T OFFICE 26169 [facility] PETTEY OUTPATIEN 7 7 PHYSICIAN T VISIT S GROUP 10 MINUTES EMERGENCY 07525 TRACEY CHAPARRO 7 7 PHYSICIAN DEPARTMEN S, [facility] T VISIT HIGH/URGE NT SEVERITY [facility]OSPITAL VINCE - 7 7 [facility] T OFFICE 27481 [facility] PETTE[facility] OUTPATIEN 7 7 PHYSICIAN T VISIT S GROUP 15 MINUTES [facility]OSPITAL VINCE - 7 7 [facility] OUT[facility] INC T OFFICE 91442 [facility] [place] OUTPATIEN 7 7 PHYSICIAN T VISIT S GROUP 15 MINUTES HOSPITAL VINCE - 7 7 [facility] OUTPATIEN INC T OFFICE 33355 [facility] [place] OUTPATIEN 7 7 PHYSICIAN T VISIT S GROUP 15 MINUTES OFFICE 63268 [facility] FERNANDEZ OUTPATIEN 7 7 PHYSICIAN T NEW 10 S GROUP MINUTES EMERGENCY 48330 [facility]INCE 7 7 [facility] LOW/MODER SEVERITY [facility] VINCE - 7 7 [facility] OUTPATIEN INC [facility] VINCE - 7 7 [facility] OUTPATIEN INC T OFFICE 44101 [facility] OUTPATIEN 7 7 PHYSICIAN T VISIT S GROUP 15 MINUTES HOSPITAL VINCE - 6 6 [facility] OUTPATI[facility] INC T HOSPITAL VINCE - 6 6 [facility] OUTPATIEN INC [facility]PITAL VINCE - 6 6 [facility] OUTPATIEN INC T OFFICE 41624 [facility] DEVON JR OUTPATIEN 6 6 PHYSICIAN T VISIT S GROUP 10 MINUTES HOSPITAL VINCE - 6 6 [facility] OUTPATIEN INC T EMERGENCY 01337 TRACEY CARDONA, 6 6 PHYSICIAN JR [facility] S, [facility] T VISIT HIGH/URGE NT SEVERITY HOSPITAL VINCE - 6 6 [facility] OUTPATIEN INC T OFFICE 14819 [facility] OUTPATIEN 6 6 PHYSICIAN DAVI T VISIT S GROUP 15 MINUTES HOSPITAL VINCE - 6 6 [facility] OUTPATIEN INC T OFFICE 75740 [facility] OUTPATIEN 6 6 PHYSICIAN T VISIT S GROUP 10 MINUTES HOSPITAL VINCE - 6 6 [facility] OUTPATIEN [facility] T OFFICE 18960 [facility] DEVON OUTPATIEN 6 6 PHYS[place] T VISIT S GROUP 15 MINUTES [facility] VINCE - 6 6 [facility] T OFFICE 70274 [facility] OUTPAT[facility] 6 6 PHYSICIAN DAVI T [facility]ISIT S GROUP 15 MINUTES [facility] VINCE - 6 6 [facility] DAVI T VISIT S GROUP 15 MINUTES Emergency ALEX HERNANDEZ DO (ER) 4 12:21 4 13:13 [facility]
--- OUTSIDE RECORDS SUMMARY | 2017-04-20 18:05 | External Medical Summary Rpt ---
Author Author , YFN COULTER Address Unknown Phone [email or web address] [facility] Care Team Providers Care Wig Dresser Name Role Phone ALLMARY JR, ALLMARY JR Unavailable Unavailable ALLRAN JR CROSS, ALLRAN Unavailable Unavailable JR YAZAN BRICEÑO Unavailable Unavailable MENDES, MENDES Unavailable Unavailable [facility] Unavailable Unavailable [facility] JORGE, JORGE Unavailable Unavailable FEEBACK, FEEBACK Unavailable Unavailable JR IZABELLA CARDONA, Unavailable Unavailable JR IZABELLA CARDONA GAINEY Unavailable Unavailable KRYSTA DAVI, KRYSTA Unavailable Unavailable [facility] Unavailable Unavailable INC, [facility] Unavailable Unavailable H[facility]PITAL P, [facility], Unavailable Unavailable [facility] Unavailable Unavailable [facility], [facility] JIM FERNANDEZ Unavailable Unavailable JOSE GARCIA JR, JR Unavailable Unavailable PROCTOR, PROCTOR Unavailable Unavailable PROCTOR JUDD, PROCTOR Unavailable Unavailable JUDD [facility]available [facility], [facility] PETCALLY SHERIDAN Unavailable Unavailable ANTONIO CORRALES, Unavailable Unavailable TIFFANY MILLER JR Unavailable Unavailable SANTIAGO HENDERSON Unavailable Unavailable Purpose Continuity of Care Document - 06-06-2016 through 2016 Problems Code Diagnosis DOS Provider Status I10 ESSENTIAL 02-14-2017 [facility] PRIMARY PHYSICIANS HYPERTENSIO GROUP N M545 LOW BACK 02-14-2017 [facility] PAIN PHYSICIANS GROUP [id number] OTHER LONG 02-14-2017 [facility] TERM PHYSICIANS CURRENT GROUP DRUG THERAPY J309 ALLERGIC 02-10-2017 [facility] RHINITIS PHYSICIANS UNSPECIFIED GROUP J329 CHRONIC 02-10-2017 [facility] SINUSITIS PHYSICIANS UNSPECIFIED GROUP 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 [facility] NASAL PHYSICIANS SEPTUM GROUP M1712 UNILATERAL 02-02-2017 [facility] PRIMARY PHYSICIANS OSTEOARTHRI GROUP TIS LEFT KNEE J320 CHRONIC 01-10-2017 [facility] MAXILLARY PHYSICIANS SINUSITIS GROUP J322 CHRONIC 01-10-2017 [facility] ETHMOIDAL PHYSICIANS SINUSITIS GROUP [id number] ENCOUNTER 01-10-2017 [facility] CARIOVASCUL AR EXAM [id number] ENCOUNTER 01-10-2017 [facility] AL RESPIRATORY EXAM [id number] ENCOUNTER 01-10-2017 [facility] LABORATORY EXAM M2342 LOOSE BODY 01-04-2017 [facility] IN KNEE PHYSICIANS LEFT KNEE GROUP 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 GUZMÁN LEFT KNEE J321 CHRONIC 12-29-2016 [place] FRONTAL MEDICAL SINUSITIS IMAGING ASS J343 HYPERTROPHY 12-29-2016 [place] OF NASAL MEDICAL TURBINATES IMAGING ASS J339 NASAL POLYP 12-22-2016 [facility] PHYSICIANS UNSPECIFIED GROUP [id number] EFFUSION 12-22-2016 [place] UNSPECIFIED MEDICAL KNEE IMAGING ASS [id number] PAIN IN 12-22-2016 [place] LEFT KNEE MEDICAL IMAGING ASS M1732 UNILATERAL 12-01-2016 [facility] TIC PLLC OSTEOARTHRI TIS LT KNEE T34139 EFFUSION 12-01-2016 [place] LEFT KNEE MEDICAL IMAGING ASS [id number] UNS INJURY 12-01-2016 [facility] LOWER [facility], LEG INITIAL PLLC ENCOUNTER I63638 PRIMARY 11-23-2016 [facility] OSTEOARTHRI PHYSICIANS TIS GROUP UNSPECIFIED HAND V85749 PAIN IN 11-23-2016 [place] RIGHT MEDICAL FINGERS IMAGING ASS [id number] TRIGGER 11-08-2016 [facility] FINGER PHYSICIANS RIGHT INDEX GROUP FINGER [id number] TRIGGER 11-08-2016 [facility] FINGER PHYSICIANS RIGHT RING GROUP FINGER R079 CHEST PAIN 11-03-2016 [facility] P G4733 OBSTRUCTIVE 10-25-2016 [facility] SLEEP PHYSICIANS APNEA ADULT GROUP PEDIATRIC J449 CHRONIC 10-21-2016 [facility] P DISEASE UNS [id number] ACUTE 10-21-2016 [facility] P PNEUMONITIS R0602 SHORTNESS 10-21-2016 [place] OF BREATH MEDICAL IMAGING ASS R0789 OTHER CHEST 10-21-2016 [place] PAIN MEDICAL IMAGING ASS R109 UNSPECIFIED 10-21-2016 [place] ABDOMINAL MEDICAL PAIN IMAGING ASS R140 ABDOMINAL 10-21-2016 [place] DISTENSION MEDICAL GASEOUS IMAGING ASS 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 L989 DISORDER 10-14-2016 [facility] THE SKIN & PHYSICIANS SUBCUTANEOU GROUP S TISSUE UNS K8000 CALCULUS GB 09-12-2016 [facility] CHOLECYST INC W/O OBSTRUCTION R1013 EPIGASTRIC 09-12-2016 [place] PAIN MEDICAL IMAGING ASS [id number] CONTUSION 09-12-2016 [facility] ABDOMINAL IMAGING ASS WALL INITIAL ENCOUNTER 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 K8010 CALCULUS GB 09-07-2016 [facility], W/CHRONIC LLC CHOLECYST W/O OBSTRUCTION K8080 OTHER 09-07-2016 [facility] CHOLELITHIA PHYSICIANS SIS WITHOUT GROUP OBSTRUCTION K819 CHOLECYSTIT 09-07-2016 [facility] IS ANESTH OF UNSPECIFIED THE [facility] D126 BENIGN 09-02-2016 [facility] NEOPLASM OF PHYSICIANS COLON GROUP UNSPECIFIED K8020 CALCULUS GB 08-27-2016 [facility] W/O PHYSICIANS, CHOLECYSTIT PLLC IS W/O OBSTRUCTION Z720 TOBACCO USE 08-27-2016 [facility] M5416 RADICULOPAT 08-24-2016 [facility] HY LUMBAR PHYSICIANS REGION GROUP 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 K5790 DIVERTICULO 08-23-2016 [facility] SIS PART PHYSICIANS UNS W/O GROUP PERF/ABSC W/O BLEED Z1211 ENCOUNTER 08-23-2016 [facility] SCREENING PHYSICIANS MALIGNANT GROUP NEOPLASM OF COLON [id number] UNSPECIFIED 08-20-2016 [facility] ASTHMA PHYSICIANS UNCOMPLICAT GROUP ED Z1231 ENCOUNTER 08-15-2016 [place] SCREENING MEDICAL MAMMO MALIG IMAGING ASS NEOPLASM BREAST R1011 RIGHT UPPER 07-07-2016 [place] QUADRANT MEDICAL PAIN IMAGING ASS E663 OVERWEIGHT 07-05-2016 [facility] PHYSICIANS GROUP M5136 OTH 06-07-2016 [place] [facility] RAL DISC INC DEGEN LUMBAR REGION Medications Na ND Rx Da Fi Fi Am Da Di Ph RX Ph St me C No te ll ll ou ys ag ar # ys at rm s nt no ma ic us Or Da si cy ia de te s n re d BU 59 06 07 4. 28 00 [place] Ac TR 01 2 -2 00 00 L- ti AN 10 6- 1- 0 04 MA ve S 75 20 20 53 RT 15 80 17 17 07 4 41 PH MC AR G/ MA HR CY PA #5 TC 91 H TR 50 06 07 30 30 00 OR Ac AZ 11 -2 -1 .0 00 L- ti OD 10 1- 4- 00 07 MA ve ON 43 20 20 49 RT E 40 17 17 47 10 1 09 PH 0 AR MG MA CY TA BL #5 ET 91 GA 00 06 07 90 30 00 OR Ac BA 22 -2 -1 .0 00 L- ti PE 82 1- 4- 07 MA ve NT 63 20 20 49 RT IN 65 17 17 47 0 10 PH 60 AR 0 MA MG CY TA #5 BL 91 ET FL 60 06 07 16 30 00 OR Ac UT 43 -2 -1 .0 00 L- ti IC 20 1 4- 07 MA ve 26 20 20 49 RT ON 41 17 17 47 E 5 12 PH W[place] AR OP MA CY 50 #5 MC 91 G SP RA Y MO 31 06 07 30 30 00 OR Ac NT 72 -2 -1 .0 00 L- ti EL 20 09-28- 07 MA ve UK 72 20 20 49 RT 61 17 17 47 T 0 13 PH SO AR D MA 10 CY MG #5 91 TA BL ET LO 54 06 07 90 90 00 OR Ac VA 45 -2 -1 .0 00 L- ti ST 80 1 4- 07 MA ve AT 93 20 20 49 RT IN 81 17 17 47 6 14 PH 10 AR MA MG CY TA #5 BL 91 ET VE 00 06 07 18 17 00 OR Ac NT 17 -2 -1 .0 00 L- ti OL 30 1 4- 07 MA ve IN 68 20 20 49 RT 22 17 17 47 HF 0 15 PH A AR 90 MA CY MC G #5 IN 91 [place] LE R PA 68 06 07 30 30 00 OR Ac NT 64 -2 -1 .0 00 L- ti OP 50 1- 4- 00 07 MA ve RA 49 20 20 49 RT ZO 25 17 17 47 LE 4 16 PH AR SO MA D CY DR #5 40 91 MG TA B BU 00 06 07 60 30 00 OR Ac [place] 59 -2 -1 .0 00 L- ti OP 13 1- 4- 07 MA ve IO 54 20 20 49 RT N 10 17 17 47 HC 5 18 PH L AR SR MA CY 15 0 #5 MG 91 TA BL ET HY 00 06 07 [address] 40 -2 -1 .0 00 L- ti OC 60 1- 4- 00 02 MA ve OD 12 20 20 24 RT ON 50 17 17 08 -A 1 23 PH CE AR TA MA WV CY NO PH #5 N 91 10 -3 25 VE 00 06 07 18 17 00 [facility] NT 17 -0 -0 .0 00 L- ti OL 30 8- 7- 00 07 MA ve IN 68 20 20 47 RT 22 17 17 65 HF 0 70 PH A AR 90 MA CY MC G #5 IN 91 [place] LE R BU 59 05 06 4. 28 00 [facility] TR 01 -2 -2 00 00 L- ti AN 10 5- 3- 0 04 MA ve S 75 20 20 53 RT 15 80 17 17 01 4 65 PH MC AR G/ MA HR CY PA #5 TC 91 H MO 31 05 06 30 30 00 [facility] NT 72 -1 -1 .0 00 L- ti EL 20 9- 6- 00 07 MA ve UK 72 20 20 48 RT 61 17 17 88 T 0 35 PH SO AR D MA 10 CY MG #5 91 TA BL ET FL 60 05 06 16 30 00 [facility] [place] 43 -1 -1 .0 00 L- ti IC 20 9- 6- 00 07 MA ve 26 20 20 48 RT ON 41 17 17 88 E 5 37 PH W[place] AR OP MA CY 50 #5 MC 91 G SP RA Y CE 16 05 06 90 90 00 [facility] TI 57 -2 -1 .0 00 L- ti RI 10 3- 6- 00 08 MA ve ZI 40 20 20 83 RT NE 25 17 17 95 0 77 PH HC AR L MA 10 CY MG #5 91 TA BL ET LI 68 05 06 90 90 00 [facility] SI 64 -2 -1 .0 00 L- ti NO 50 3- 6- 00 07 MA ve [place] 55 20 20 48 RT IL 15 17 17 95 5 4 01 PH AR MG MA CY TA BL #5 ET 91 HY 00 05 06 60 30 [address] [facility] [address] 40 -2 -1 .0 00 L- ti OC 60 3- 6- 00 02 MA ve OD 12 20 20 24 RT ON 30 17 17 04 -A 1 36 PH CE AR TA MA WV CY NO PH #5 EN 91 5- 32 5 TR 50 05 06 30 30 00 [facility] [place] 11 -2 -1 .0 00 L- ti OD 10 1- 6- 00 07 MA ve ON 43 20 20 47 RT E 30 17 17 87 50 1 66 PH AR MG MA CY TA BL #5 ET 91 BU 00 05 06 60 30 00 OR Ac [place] 59 -2 -1 .0 00 L- ti OP 13 1- 6- 00 07 MA ve IO 54 20 20 48 RT N 10 17 17 44 HC 5 05 PH L AR SR MA CY 15 0 #5 MG 91 TA BL ET GA 00 05 06 90 30 00 OR Ac BA 22 -2 -1 .0 00 L- ti PE 82 1- 6- 00 07 MA ve NT 63 20 20 47 RT IN 65 17 17 87 0 67 PH 60 AR 0 MA MG CY TA #5 BL 91 ET PA 68 05 06 30 30 00 OR Ac NT 64 -2 -1 .0 00 L- ti OP 50 1- 6- 00 07 MA ve RA 49 20 20 47 RT ZO 25 17 17 87 LE 4 70 PH AR SO MA D CY DR #5 40 91 MG TA B BU 59 04 05 4. 28 00 OR Ac TR 01 -2 -2 00 00 L- ti AN 10 7- 6- 0 04 MA ve S 75 20 20 53 RT 15 80 17 17 01 4 65 PH MC AR G/ MA HR CY PA #5 TC 91 H HY 00 04 05 30 [address] 37 -2 -2 .0 00 L- ti OC 80 7- 6- 00 07 MA ve HL 81 20 20 48 RT OR 00 17 17 48 OT 5 33 PH HI AR AZ MA ID CY E 12 #5 .5 91 MG CP CE 16 04 05 30 30 00 OR Ac TI 57 -2 -2 .0 00 L- ti RI 10 7- 6- 00 08 MA ve ZI 40 20 20 83 RT NE 25 17 17 82 0 24 PH HC AR L MA 10 CY MG #5 91 TA BL ET HY 00 04 05 60 [address] 40 -2 -1 .0 00 L- ti OC 60 4- 9- 00 02 MA ve OD 12 20 20 24 RT ON 30 17 17 00 -A 1 28 PH CE AR TA MA WV CY NO PH #5 EN 91 5- 32 5 PA 68 04 05 30 30 00 OR Ac NT 64 -2 -1 .0 00 L- ti OP 50 5- 9- 00 07 MA ve RA 49 20 20 47 RT ZO 25 17 17 87 LE 4 70 PH AR SO MA D CY DR #5 40 91 MG TA B TR 50 04 05 30 30 00 [place] Ac AZ 11 -2 -1 .0 00 L- ti OD 10 5- 9- 00 07 MA ve ON 43 20 20 47 RT E 30 17 17 87 50 1 66 PH AR MG MA CY TA BL #5 ET 91 VE 00 04 05 18 17 00 [facility] NT 17 -2 -1 .0 00 L- ti OL 30 5- 9- 00 07 MA ve IN 68 20 20 47 RT 22 17 17 65 HF 0 70 PH A AR 90 MA CY MC G #5 IN 91 [place] LE R BU 00 04 05 60 30 00 OR Ac [place] 59 -2 -1 .0 00 L- ti OP 13 5- 9- 07 MA ve IO 54 20 20 48 RT N 10 17 17 44 HC 5 05 PH L AR SR MA CY 15 0 #5 MG 91 TA BL ET GA 00 04 05 90 30 00 [facility] BA 22 -1 -1 .0 00 L- ti PE 82 9- 2- 00 07 MA ve NT 63 20 20 47 RT IN 65 17 17 87 0 67 PH 60 AR 0 MA MG CY TA #5 BL 91 ET BU 59 03 04 4. 28 00 [facility] TR 01 -3 -2 00 00 L- ti AN 10 0- 8- 0 04 MA ve S 75 20 20 52 RT 15 80 17 17 98 4 13 PH MC AR G/ MA HR CY PA #5 TC 91 H MO 54 03 04 30 30 00 [facility] NT 45 -3 -2 .0 00 L- ti EL 80 1- 8- 00 07 MA ve UK 89 20 20 47 RT 01 17 17 28 T 0 24 PH SO AR D MA 10 CY MG #5 91 TA BL ET FL 60 03 04 16 30 00 [facility] [place] 43 -3 -2 .0 00 L- ti IC 20 1- 8- 00 07 MA ve 26 20 20 46 RT ON 41 17 17 77 E 5 74 PH WY AR OP MA CY 50 #5 MC 91 G SP RA Y HY 00 03 04 60 30 [address] [facility] [address] 40 -2 -2 .0 00 L- ti OC 60 7- 1- 00 02 MA ve OD 12 20 20 23 RT ON 30 17 17 96 -A 1 82 PH CE AR TA MA WV CY NO PH #5 EN 91 5- 32 5 LO 54 03 04 90 90 00 [facility] VA 45 -2 -2 .0 00 L- ti ST 80 7- 1- 00 07 MA ve AT 93 20 20 47 RT IN 81 17 17 87 0 65 PH 10 AR MA MG CY TA #5 BL 91 ET TR 50 03 04 30 30 00 WA Ac AZ 11 -2 -2 .0 00 L- ti OD 10 7- 1- 00 07 MA ve ON 43 20 20 47 RT E 30 17 17 87 50 1 66 PH AR MG MA CY TA BL #5 ET 91 GA 00 03 04 90 30 00 WA Ac BA 22 -2 -2 .0 00 L- ti PE 82 7- 1- 00 07 MA ve NT 63 20 20 47 RT IN 65 17 17 87 0 67 PH 60 AR 0 MA MG CY TA #5 BL 91 ET PA 68 03 04 30 30 00 WA Ac NT 64 -2 -2 .0 00 L- ti OP 50 7- 1- 00 07 MA ve RA 49 20 20 47 RT ZO 27 17 17 87 LE 0 70 PH AR SO MA D CY DR #5 40 91 MG TA B VE 00 03 04 18 17 00 OR Ac NT 17 -2 -2 .0 00 L- ti OL 30 8- 1- 00 07 MA ve IN 68 20 20 47 RT 22 17 17 87 HF 0 68 PH A AR 90 MA CY MC G #5 IN [place] LE R BU 00 03 04 60 30 00 WA Ac W[place] 59 -2 -2 .0 00 L- ti OP 13 8- 1- 00 07 MA ve IO 54 20 20 47 RT N 10 17 17 87 HC 5 69 PH L AR SR MA CY 15 0 #5 MG 91 TA BL ET W[place] 00 03 04 10 5 00 OR Ac ED 14 -0 -0 .0 00 L- ti NI 39 9- 7- 00 07 MA ve SO 73 20 20 47 RT NE 80 17 17 52 5 61 PH 20 AR MA MG CY TA #5 BL 91 ET VE 00 03 04 18 17 00 WA Ac NT 17 -1 -0 .0 00 L- ti OL 30 5- 7- 00 07 MA ve IN 68 20 20 47 RT 22 17 17 65 HF 0 70 PH A AR 90 MA CY MC G #5 IN 91 [place] LE R HY 00 02 03 [address] 40 -2 -2 .0 00 L- ti OC 60 4- 4- 00 02 MA ve OD 12 20 20 23 RT ON 30 17 17 92 -A 1 76 PH CE AR TA MA WV CY NO PH #5 EN 91 5- 32 5 LO 54 02 03 30 30 00 WA Ac VA 45 -2 -2 .0 00 L- ti ST 80 4- 4- 00 07 MA ve AT 93 20 20 47 RT IN 81 17 17 28 0 22 PH 10 AR MA MG CY TA #5 BL 91 ET PA 68 02 03 30 30 00 OR Ac NT 64 -2 -2 .0 00 L- ti OP 50 4- 4- 00 07 MA ve RA 49 20 20 47 RT ZO 27 17 17 28 LE 0 23 PH AR SO MA D CY DR #5 40 91 MG TA B MO 54 02 03 30 30 00 OR Ac NT 45 -2 -2 .0 00 L- ti EL 80 4- 4- 00 07 MA ve UK 89 20 20 47 RT 01 17 17 28 T 0 24 PH SO AR D MA 10 CY MG #5 91 TA BL ET TR 50 02 03 30 30 00 OR Ac AZ 11 -2 -2 .0 00 L- ti OD 10 4- 4- 00 07 MA ve ON 43 20 20 47 RT E 30 17 17 28 50 1 25 PH AR MG MA CY TA BL #5 ET 91 BU 60 02 03 60 30 00 OR Ac [place] 50 -2 -2 .0 00 L- ti OP 50 4- 4- 00 07 MA ve IO 15 20 20 47 RT N 80 17 17 28 HC 1 26 PH L AR 75 MA CY MG #5 TA 91 BL ET CE 16 02 03 30 30 00 OR Ac TI 57 -2 -2 .0 00 L- ti RI 10 4- 4- 00 08 MA ve ZI 40 20 20 83 RT NE 25 17 17 82 0 24 PH HC AR L MA 10 CY MG #5 91 TA BL ET BU 59 02 03 4. 28 00 OR Ac TR 01 -2 -2 00 00 L- ti AN 10 4- 4- 0 04 MA ve S 75 20 20 52 RT 15 80 17 17 94 4 73 PH MC AR G/ MA HR CY PA #5 TC 91 H VE 00 02 03 18 17 00 OR Ac NT 17 -1 -1 .0 00 L- ti OL 30 9- 7- 00 07 MA ve IN 68 20 20 46 RT 22 17 17 09 HF 0 21 PH A AR 90 MA CY MC G #5 IN 91 [place] LE R EQ 49 01 02 28 28 00 OR Ac 03 -3 -2 .0 00 L- ti NI 50 0- 4- 00 08 MA ve CO 19 20 20 83 RT TI 50 17 17 78 NE 2 86 PH AR 14 MA CY MG /2 #5 4H 91 R PA TC H ME 59 01 02 21 5 00 WA Ac TH 74 -3 -2 .0 00 L- ti YL 60 0- 4- 00 07 MA ve WY 00 20 20 46 RT ED 10 17 17 77 NI 3 73 PH SO AR LO MA NE CY 4 #5 MG 91 DO SE PK FL 60 01 02 16 30 00 WA Ac UT 43 -3 -2 .0 00 L- ti IC 20 0- 4- 00 07 MA ve 26 20 20 46 RT ON 41 17 17 77 E 5 74 PH WY AR OP MA CY 50 #5 MC 91 G SP RA Y MO 54 01 02 30 30 00 WA Ac NT 45 -3 -2 .0 00 [...] PA 68 01 02 30 30 00 WA Ac NT 64 -2 -2 .0 00 L- ti OP 50 7- 4- 00 07 MA ve RA 49 20 20 46 RT ZO 27 17 17 09 LE 0 20 PH AR SO MA D CY DR #5 40 91 MG TA B CE 16 01 02 30 30 00 WA Ac TI 57 -2 -2 .0 00 L- ti RI 10 7- 4- 00 08 MA ve ZI 40 20 20 83 RT NE 25 17 17 74 0 58 PH HC AR L MA 10 CY MG #5 91 TA BL ET ES 68 01 02 30 30 00 WA Ac CI 64 -2 -2 .0 00 L- ti TA 50 7- 4- 00 07 MA ve LO 52 20 20 46 RT WY 05 17 17 09 AM 4 19 PH AR 20 MA CY MG #5 TA 91 BL ET GA 00 01 02 90 30 00 WA Ac BA 22 -2 -2 .0 00 L- ti PE 82 7- 4- 00 07 MA ve NT 63 20 20 46 RT IN 65 17 17 09 0 16 PH 60 AR 0 MA MG CY TA #5 BL 91 ET CO 58 01 02 12 4 00 WA Ac DE 65 -2 -2 0. 00 L- ti IN 70 7- 4- 00 04 MA ve E- 50 20 20 0 52 RT 01 17 17 91 AI 6 78 PH FE AR N MA 10 CY -1 00 #5 91 MG /5 ML HY 00 01 02 [address] 40 -2 -2 .0 00 L- ti OC 60 7- 4- 00 02 MA ve OD 12 20 20 23 RT ON 30 17 17 88 -A 1 94 PH CE AR TA MA WV CY NO PH #5 EN 91 5- 32 5 VE 00 01 02 18 17 00 OR Ac NT 17 -1 -1 .0 00 L- ti OL 30 9- 7- 00 07 MA ve IN 68 20 20 46 RT 22 17 17 09 HF 0 21 PH A AR 90 MA CY MC G #5 IN 91 [place] LE R PO 62 01 02 52 30 00 OR Ac LY 17 -1 -1 7. 00 L- ti ET 50 9- 7- 00 07 MA ve HY 44 20 20 0 45 RT LE 23 17 17 56 NE 1 87 PH AR GL MA YC CY OL #5 33 91 50 PO WD TR 50 01 02 30 30 00 OR Ac AZ 11 -2 -1 .0 00 L- ti OD 10 1- 7- 00 07 MA ve ON 43 20 20 46 RT E 30 17 17 09 50 1 22 PH AR MG MA CY TA BL #5 ET 91 LO 54 01 02 30 30 00 OR Ac VA 45 -2 -1 .0 00 L- ti ST 80 0- 7- 00 07 MA ve AT 93 20 20 46 RT IN 81 17 17 59 0 01 PH 10 AR MA MG CY TA #5 BL 91 ET NI 43 01 01 28 28 00 OR Ac CO 59 -0 -2 .0 00 L- ti TI 80 3- 7- 00 08 MA ve NE 44 20 20 83 RT 82 17 17 75 21 8 26 PH AR MG MA /2 CY 4H R #5 PA 91 TC H GA 00 12 01 90 30 00 OR Ac BA 22 -3 -2 .0 00 L- ti PE 82 0- 7- 00 07 MA ve NT 63 20 20 46 RT IN 65 16 17 09 0 16 PH 60 AR 0 MA MG CY TA #5 BL 91 ET ES 68 12 01 30 30 00 OR Ac CI 64 -3 -2 .0 00 L- ti TA 50 0- 7- 00 07 MA ve LO 52 20 20 46 RT WY 05 16 17 09 AM 4 19 PH AR 20 MA CY MG #5 TA 91 BL ET PA 68 12 01 30 30 00 WA Ac NT 64 -3 -2 .0 00 [...] HY 00 12 01 [address] 40 -2 -2 .0 00 L- ti OC 60 7- 0- 00 02 MA ve OD 12 20 20 23 RT ON 30 16 17 84 -A 1 57 PH CE AR TA MA WV CY NO PH #5 EN 91 5- 32 5 VE 00 12 01 18 17 00 OR Ac NT 17 -2 -2 .0 00 L- ti OL 30 7- 0- 00 07 MA ve IN 68 20 20 46 RT 22 16 17 09 HF 0 21 PH A AR 90 MA CY MC G #5 IN 91 [place] LE R TR 50 12 01 30 30 00 OR Ac [place] 11 -2 -2 .0 00 L- ti OD 10 7- 0- 00 07 MA ve ON 43 20 20 46 RT E 30 16 17 09 50 1 22 PH AR MG MA CY TA BL #5 ET 91 VE 00 12 01 18 17 00 OR Ac NT 17 -0 -0 .0 00 L- ti OL 30 9- 9- 00 07 MA ve IN 68 20 20 45 RT 22 16 17 70 HF 0 08 PH A AR 90 MA CY MC G #5 IN 91 [place] LE R Procedures Procedure DOS Code Location Performer Comment DRUG TEST 84083 [facility] PRSMV [facility] QUAL DIR INC INC OPTICAL OBS PER DAY HYALURONA J7325 [facility] PETTEY N/DERIV 7 PHYSICIAN SYNVISC/S S GROUP YNVISC-ON E IA INJ 1 MG ARTHROCEN 82483 [facility]Y TESIS 7 PHYSICIAN ASPIR&/IN S GROUP J MAJOR JT/BURSA W/O US ANESTHESI 67615 [facility] FEEBACK A NOSE & 7 ANESTH ACCESSORY [place] [address] [facility] JR PATHOLOGY GROSS&DAVI ROSCOPIC EXAM DECALCIFI 40427 [facility] PROCEDURE DRUG TEST 55909 [facility] QUAL DIR INC INC OPTICAL OBS PER DAY DRUG TEST G0481 [facility] DEFINITV 7 [facility] ID INC INC METH P DAY 8-14 DRUG CL ECG 81154 [facility] JR ROUTINE 7 [facility] W/LEAST P 12 LDS I&R ONLY BASIC 63690 [facility] METABOLIC 7 [facility] PANEL INC INC CALCIUM TOTAL ECG 27235 [facility] ROUTINE 7 [facility] ECG INC INC W/LEAST 12 LDS TRCG ONLY W/O I&R INJECTION J3301 [facility] PETTEY 7 PHYSICIAN TRIAMCINO S GROUP LONE ACETONIDE NOS 10 MG ARTHROCEN 00046 [facility] PETTEY TESIS 7 PHYSICIAN ASPIR&/IN S GROUP J MAJOR JT/BURSA W/[place] [address] [facility] MAXILLOFA [facility] CIAL W/O INC INC CONTRAST MATERIAL MRI ANY 78489 [facility] JT LOWER 7 [facility] EXTREM INC INC W/O CONTRAST MATRL DRUG TEST 75079 [facility] PRSMV 7 [facility] QUAL DIR INC INC OPTICAL OBS PER DAY RADIOLOGI 60180 [place] MENDES C 7 MEDICAL EXAMINATI IMAGING ON KNEE [address] LOWER [address] [place] MENDES EXTREMITY 7 MEDICAL W/O IMAGING CONTRAST ASS MATERIAL INJECTION 00916 [facility] 1 [place] 7 PHYSICIAN PHYSICIAN S GROUP S GROUP SHEATH/LI GAMENT APONEUROS IS RADEX 83553 [facility] MENDES HAND 7 MEDICAL MINIMUM 3 IMAGING VIEWS ASS DRUG TEST 01984 [facility] PRSMV 7 [facility] HOSP QUAL DIR INC INC OPTICAL OBS PER DAY MYOCARDIA 75904 [facility] L SPECT 7 [facility] MULTIPLE INC INC STUDIES CV STRS 53840 [facility] HAND TST 7 [facility] XERS&/OR HOSPITAL RX CONT P ECG W/O I&R CV STRS 20581 [facility] TST 7 [facility] XERS&/OR INC INC RX CONT ECG TRCG ONLY CV STRS 29844 [facility] TST 7 [facility] RX CONT P ECG I&R ONLY UNCLASSIF J3490 [facility] IED DRUGS 7 [place] [address] [facility] ANGIOGRAP 7 [facility] HY CHEST INC INC W/CONTRAS T/NONCONT RAST UNCLASSIF J3490 [facility] IED DRUGS 7 [facility] INC INC RADIOLOGI 20721 [facility] C EXAM 7 [facility]P CHEST 2 INC INC VIEWS FRONTAL&L ATERAL ECG 59506 [facility] JR ROUTINE 7 [facility] W/LEAST P 12 LDS I&R ONLY ECG 60808 [facility] ROUTINE 7 [facility] ECG INC INC W/LEAST 12 LDS TRCG ONLY W/O I&[place] [address] [facility] LIPASE 7 [facility] INC INC FIBRIN 07975 [facility] DGRADJ 7 [facility] PRODUCTS INC INC D-DIMER QUAL/[place] [address] [facility] AMYLASE 7 [facility] INC INC CREATINE 84876 V[facility] KINASE 7 [facility] TOTAL INC INC CUL BACT 76601 [facility] AEROBIC 7 [facility] ADDL INC INC METHS DEFINITIV E EA ISOL CT THORAX 13874 YAZMIN MENDES 7 MEDICAL W/[place] [address] [facility] ABDOMEN & 7 [facility] PELVIS INC INC W/CONTRAS T MATERIAL DRUG TEST 70552 [facility] PRSMV 7 [facility] QUAL DIR INC INC OPTICAL OBS PER DAY COMPREHEN 63795 [facility] SIVE 7 [facility] METABOLIC INC INC PANEL CREATINE 05848 V[facility]CE [facility] KINASE MB 7 [facility] [place] [address] V[facility]CE [facility] LACTATE 7 [facility] INC INC BLOOD 67844 V[facility]CE [facility]AREK COUNT 7 [facility] COMPLETE INC INC AUTO&AUTO DIFRNTL WBC CULTURE 68543 VINCE VINCE BACTERIAL 7 [facility] BLOOD INC INC AEROBIC W/ID ISOLATES SUSCEPTIB 38382 [facility]CE [facility] LTY STDY 7 [facility] ANTIMICRB INC INC IAL MICRO/[place] [address] V[facility]CE [facility] TROPONIN 7 [facility] QUANTITAT INC INC ONDINA DRUG 24964 VINCE VINCE SCREENING 7 [facility] OPIOIDS INC INC & OPIATE ANALOGS 5/MORE DRUG TEST 66231 V[facility]CE [facility] PRSMV 7 [facility] QUAL DIR INC INC OPTICAL OBS PER DAY REMOVAL 15745 [facility] SKN TAGS 7 PHYSICIAN HAND EXPANSION ENVELOPE MAKER FIBRQ S GROUP TAGS ANY AREA UPW/15 DRUG TST G0477 VINCE VINCE PRESUMP;C 6 [facility] PBL BEING INC [place] [address] VINCE GOMEZON LIPASE 6 [facility] INC INC COMPREHEN 86172 VINCE VINCE SIVE 6 [facility] [place] [address] V[facility]CE [facility] AMYLASE 6 [facility] INC INC BLOOD 50918 VINCE VINCE COUNT 6 [facility] COMPLETE INC INC AUTO&AUTO DIFRNTL WBC UNCLASSIF J3490 VINCE [facility] IED DRUGS 6 [place] [address] SANTIAGOWard JORGE ABDOMEN & 6 MEDICAL PELVIS IMAGING W/CONTRAS ASS T MATERIAL COLLECTIO 24922 V[facility]CE [facility] N VENOUS 6 [facility] BLOOD INC INC VENIPUNCT URE UNCLASSIF J3490 V[facility] IED DRUGS 6 [facility] INC INC LAPAROSCO 63793 [facility] DEVON CORRALES PY SURG 6 PHYSICIAN CHOLECYST S GROUP ECTOMY LEVEL III 59597 [facility], PROCTOR SURG 6 [facility] PATHOLOGY GROSS&DAVI ROSCOPIC EXAM ANES 98499 [facility] INTRAPERI 6 ANESTH TONEAL OF THE UPPER BLUE ABDOMEN W/LAPS NOS PRESSURIZ 70460 V[facility]CE [facility] ED/NONPRE 6 [facility] SSURIZED INC INC INHALATIO N TREATMENT COMPREHEN 83382 [facility] SIVE 6 [facility] METABOLIC INC INC PANEL COLLECTIO 74396 V[facility] N VENOUS 6 [facility] BLOOD INC INC VENIPUNCT URE COMPREHEN 24444 [facility] [place] [address] [facility] AMYLASE 6 [facility] INC INC URNLS DIP 26839 [facility] STICK/TAB INC INC LET REAGENT AUTO MICROSCOP Y BLOOD 77970 [facility] COUNT 6 [facility] COMPLETE INC INC AUTO&[place] [address] [facility] INFUSION 6 [facility] THERAPY/P INC INC ROPHYLAXI S /DX 1ST TO 1 HR THERAPEUT 07998 [facility] IC 6 [facility] INJECTION INC INC IV PUSH EACH NEW DRUG UNCLASSIF J3490 [facility] IED DRUGS 6 [place] [address] [facility] LIPASE 6 [place] [address] [facility] ABDOMEN & 6 [facility] PELVIS INC INC W/O CONTRAST MATERIAL COLONOSCO 78817 [facility] PY 6 [facility] W/BIOPSY INC INC SINGLE/[place] LTIPLE COLSC FLX [address] [facility] DEVON CORRALES W/RMVL 6 [facility] [place] OF TUMOR S GROUP POLYP LESION SNARE TQ UNCLASSIF J3490 V[facility] IED DRUGS 6 [facility] [place] [address] [facility] DEVON CORRALES WITH 6 [facility] DIRECTED S GROUP [place] [address] [facility], PROCTOR SURG 6 [facility] PATHOLOGY GROSS&DAVI ROSCOPIC EXAM ANES [address] [place] [address] ANESTH INTESTINE OF THE BLUE ENDOSCOPY DISTAL DUODENUM SCREENING G0202 [facility] MAMMOGRAP INC INC HY YASMANY INCL CAD WHEN PERFORMD COMPUTER- 43462 [facility] AIDED 6 [facility] DETECTION [place] [address] [facility] ABDOMINAL 6 [facility] REAL INC INC TIME W/IMAGE LIMITED CREATINE 68726 [facility] KINASE MB 6 [facility] FRACTION INC INC ONLY RADIOLOGI 86687 V[facility] C EXAM 6 [facility] CHEST 2 INC INC VIEWS FRONTAL&L ATERAL COMPREHEN 23808 [facility] SIVE 6 [facility] METABOLIC INC INC PANEL BLOOD 41957 [facility] COUNT 6 [facility] COMPLETE INC INC AUTO&AUTO DIFRNTL WBC HEMOGLOBI 76021 V[facility] N 6 [facility] GLYCOSY[place] [address] [facility] TROPONIN 6 [facility] QUANTITAT INC INC ONDINA LIPID 35142 V[facility] PANEL 6 [facility] INC INC CREATINE 99816 V[facility] KINASE 6 [facility] TOTAL INC INC COLLECTIO 15653 [facility] N VENOUS 6 [facility] BLOOD INC INC VENIPUNCT URE Encounters Encounter Start End Date Code Location Performer Type Date [facility] Frey 7 [facility] OUTPAT[facility] INC T OFFICE 25173 [facility] K[facility]STA LEE 7 7 PHYSICIAN T VISIT S GROUP 25 MINUTES OFFICE 31702 [facility] OUTPATIEN 7 7 PHYSICIAN T VISIT S GROUP 15 MINUTES HOSPITAL VINCE - 7 7 [facility] T [facility]INCE - 7 7 [facility] INC T OFFICE 03405 [facility] OUTPATIEN 7 7 PHYSICIAN T VISIT S GROUP 10 MINUTES OFFICE 51271 [facility] PETTE[facility] OUTPATIEN 7 7 PHYSICIAN T VISIT S GROUP 10 MINUTES HOSPITAL VINCE - 7 7 [facility] OUTPATIEN INC T OFFICE 45013 [facility] OUTPATIEN 7 7 PHYSICIAN T VISIT S GROUP 15 MINUTES HOSPITAL VINCE - 7 7 [facility] OUTPATIEN INC T HOSPITAL [facility]INCE - 7 7 [facility] OUTPATIEN INC T OFFICE 88123 [facility] OUTPATIEN 7 7 PHYSICIAN T VISIT S GROUP 10 MINUTES EMERGENCY 29096 [facility]APARRO 7 7 PHYSICIAN DEPARTMEN S, [facility] T VISIT HIGH/URGE NT SEVERITY OFFICE 35668 [facility] PETTE[facility] OUTPATIEN 7 7 PHYSICIAN T VISIT S GROUP 15 MINUTES HOSPITAL VINCE - 7 7 [facility] OUTPATIEN INC T HOSPITAL [facility]INCE - 7 7 [facility] OUTPATIEN INC T OFFICE 93671 [facility] OUTPATIEN 7 7 PHYSICIAN T VISIT S GROUP 15 MINUTES HOSPITAL VINCE - 7 7 [facility] OUTPATIEN INC T OFFICE 87690 [facility] OUTPATIEN 7 7 PHYSICIAN T VISIT S GROUP 15 MINUTES OFFICE 17611 [facility] OUTPATIEN 7 7 PHYSICIAN T NEW 10 S GROUP MINUTES HOSPITAL VINCE - 7 7 [facility] OUTPATIEN INC T EMERGENCY 85799 VINCE 7 7 [facility] DEPARTMEN INC T VISIT LOW/MODER SEVERITY OFFICE 60928 [facility] OUTPATIEN 7 7 PHYSICIAN T VISIT S GROUP 15 MINUTES HOSPITAL VINCE - 7 7 [facility] OUTPATIEN INC T HOSPITAL VINCE - 6 6 [facility] OUTPATIEN INC T [facility]OSPITAL VINCE - 6 6 [facility] OUTPATIEN INC T HOSPITAL VINCE - 6 6 [facility] OUTPATIEN INC T OFFICE 61996 [facility] JR OUTPATIEN 6 6 PHYSICIAN T VISIT S GROUP 10 MINUTES HOSPITAL VINCE - 6 6 [facility] OUTPATIEN INC T EMERGENCY 40960 TRACE[facility] CARDONA, 6 6 PHYSICIAN [facility] S, [facility] T VISIT HIGH/URGE NT SEVERITY HOSPITAL VINCE - 6 6 [facility] OUTPATIEN INC T OFFICE 74353 [facility] OUTPAT[facility] 6 6 PHYSICIAN DAVI T VISIT S GROUP 15 MINUTES HOSPITAL VINCE - 6 6 [facility] OUTPATIEN INC T OFFICE 10062 [facility] OUTPATIEN 6 6 PHYSICIAN T VISIT S GROUP 10 MINUTES HOSPITAL VINCE - 6 6 [facility] OUTPATIEN INC T OFFICE 10418 [facility] ALLRAN JR OUTPATIEN 6 6 PH[place]IAN [place] T VISIT S GROUP 15 MINUTES HOSPITAL [facility]INCE - 6 6 [facility] OUTPATIEN INC T OFFICE 19177 [facility] OUTPATIEN 6 6 PHYSICIAN DAVI T VISIT S GROUP 15 MINUTES HOSPITAL VINCE - 6 6 [facility] OUTPATIEN INC T OFFICE 54393 [facility] KRYSTA LEE 6 6 PHYSICIAN DAVI T VISIT S GROUP 15 MINUTES
--- OUTSIDE RECORDS SUMMARY | 2017-04-20 18:05 | External Medical Summary Rpt ---
Author Author , YFN COULTER Address Unknown Phone [email or web address] Care Team Providers Care Inhalation Therapy Aide Name Role Phone ALLMARY JR, ALLMARY JR [...] [facility] Unavailable Unavailable INC, [facility] Unavailable Unavailable HOSPITAL P, [facility], Unavailable Unavailable [facility] Unavailable Unavailable IMAGING ASS, [facility] JIM FERNANDEZ Unavailable Unavailable [...] Diagnosis DOS Provider Status I10 ESSENTIAL 02-14-2017 [facility] PRIMARY [facility]YS[facility] HYPERTENSIO GROUP N M545 LOW BACK 02-14-2017 [facility] PAIN [facility]YSICIANS GROUP [id number] OTHER LONG 02-14-2017 [facility] TERM PHYSICIANS CURRENT GROUP DRUG THERAPY J309 ALLERGIC 02-10-2017 [facility] RHINITIS PHYSICIANS UNSPECIFIED GROUP J329 CHRONIC 02-10-2017 [facility] SINUSITIS PHYSICIANS UNSPECIFIED GROUP 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 SEPTUM GROUP M1712 UNILATERAL 02-02-2017 [facility] OSTEOARTHRI GROUP TIS LEFT KNEE J320 CHRONIC 01-10-2017 [facility] MAXILLARY PHYSICIANS SINUSITIS GROUP J322 CHRONIC 01-10-2017 [facility] ETHMOIDAL PHYSICIANS SINUSITIS GROUP [id number] ENCOUNTER 01-10-2017 [facility] P AL CARIOVASCUL AR EXAM [id number] ENCOUNTER 01-10-2017 [facility] P AL RESPIRATORY EXAM B01414 ENCOUNTER 01-10-2017 [facility] P AL LABORATORY EXAM M2342 LOOSE BODY 01-04-2017 [facility] IN KNEE PHYSICIANS LEFT KNEE GROUP 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 LEFT KNEE J321 CHRONIC 12-29-2016 [place] SINUSITIS IMAGING ASS J343 HYPERTROPHY 12-29-2016 [place] OF NASAL MEDICAL TURBINATES IMAGING ASS J339 NASAL POLYP 12-22-2016 [facility] UNSPECIFIED GROUP Y45069 EFFUSION 12-22-2016 [place] UNSPECIFIED MEDICAL KNEE IMAGING ASS E39711 PAIN IN 12-22-2016 [place] LEFT KNEE MEDICAL IMAGING ASS M1732 UNILATERAL 12-01-2016 [facility], TIC PLLC OSTEOARTHRI TIS LT KNEE H11685 EFFUSION 12-01-2016 [place] LEFT KNEE MEDICAL IMAGING ASS [id number] UNS INJURY 12-01-2016 [facility] LOWER [facility], LEG INITIAL PLLC ENCOUNTER H29856 PRIMARY 11-23-2016 [facility] OSTEOARTHRI PHYSICIANS TIS GROUP UNSPECIFIED HAND R11817 PAIN IN 11-23-2016 [place] RIGHT MEDICAL FINGERS IMAGING ASS W05758 TRIGGER 11-08-2016 [facility] FINGER PHYSICIANS RIGHT INDEX GROUP FINGER Q23565 TRIGGER 11-08-2016 [facility] FINGER PHYSICIANS RIGHT RING GROUP FINGER R079 CHEST PAIN 11-03-2016 [facility] P G4733 OBSTRUCTIVE 10-25-2016 [facility] SLEEP PHYSICIANS APNEA ADULT GROUP PEDIATRIC J449 CHRONIC 10-21-2016 [facility] P DISEASE UNS [id number] ACUTE 10-21-2016 [facility] P PNEUMONITIS R0602 SHORTNESS 10-21-2016 [place] OF BREATH MEDICAL IMAGING ASS R0789 OTHER CHEST 10-21-2016 [place] PAIN MEDICAL IMAGING ASS R109 UNSPECIFIED 10-21-2016 [place] ABDOMINAL MEDICAL PAIN IMAGING ASS R140 ABDOMINAL 10-21-2016 [place] DISTENSION MEDICAL GASEOUS IMAGING ASS 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 L989 DISORDER 10-14-2016 [facility] THE SKIN & PHYSICIANS SUBCUTANEOU GROUP S TISSUE UNS K8000 CALCULUS GB 09-12-2016 [facility] CHOLECYST INC W/O OBSTRUCTION R1013 EPIGASTRIC 09-12-2016 [place] PAIN [facility]ICAL IMAGING ASS [id number] CONTUSION 09-12-2016 [facility] ABDOMINAL IMAGING ASS WALL INITIAL ENCOUNTER 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 K8010 CALCULUS GB 09-07-2016 [facility] W/CHRONIC LLC CHOLECYST W/O OBSTRUCTION K8080 OTHER 09-07-2016 [facility] CHOLELITHIA PHYSICIANS SIS WITHOUT GROUP OBSTRUCTION K819 CHOLECYSTIT 09-07-2016 [facility] IS ANESTH OF UNSPECIFIED THE BLUE 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 UNSPECIFIED K8020 CALCULUS GB 08-27-2016 [facility] W/O PHYSICIANS, CHOLECYSTIT PLLC IS W/O OBSTRUCTION Z720 TOBACCO USE 08-27-2016 [facility] M5416 RADICULOPAT 08-24-2016 [facility] HY LUMBAR PHYSICIANS REGION GROUP D124 BENIGN 08-23-2016 [facility] NEOP[facility]M OF [facility] DESCENDING COLON 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.] TR 50 06 07 30 30 00 [place] Ac [place] 11 -2 -1 .0 00 L- ti OD 10 1- 4- 00 07 MA ve ON 43 20 20 49 RT E 40 17 17 47 10 1 09 PH 0 AR MG MA CY TA BL #5 ET 91 GA 00 06 07 90 30 00 [place] Ac BA 22 -2 -1 .0 00 L- ti PE 82 1- 4- 07 MA ve NT 63 20 20 49 RT IN 65 17 17 47 0 10 PH 60 AR 0 MA MG CY TA #5 BL 91 ET FL 60 06 07 16 30 00 [place] Ac UT 43 -2 -1 .0 00 L- ti IC 20 1 4- 07 MA ve 26 20 20 49 RT ON 41 17 17 47 E 5 12 PH OR AR OP MA CY 50 #5 MC 91 G SP RA Y MO 31 06 07 30 30 00 [place] Ac NT 72 -2 -1 .0 00 L- ti EL 20 09-28- 07 MA ve UK 72 20 20 49 RT 61 17 17 47 T 0 13 PH SO AR D MA 10 CY MG #5 91 TA BL ET LO 54 06 07 90 90 00 [place] Ac VA 45 -2 -1 .0 00 L- ti ST 80 1 4- 07 MA ve AT 93 20 20 49 RT IN 81 17 17 47 6 14 PH 10 AR MA MG CY TA #5 BL 91 ET VE 00 06 07 18 17 00 [place] Ac NT 17 -2 -1 .0 00 L- ti OL 30 1 4- 07 MA ve IN 68 20 20 49 RT 22 17 17 47 HF 0 15 PH A AR 90 MA CY MC G #5 IN [address] [place] [address] R PA 68 06 07 30 30 00 [place] Ac NT 64 -2 -1 .0 00 L- ti OP 50 1- 4- 00 07 MA ve RA 49 20 20 49 RT ZO 25 17 17 47 LE 4 16 PH AR SO MA D CY DR #5 40 91 MG TA B BU 00 06 07 60 30 00 [place] Ac OR 59 -2 -1 .0 00 L- ti [...] 1 23 PH CE AR TA MA OR CY NO PH #5 N 91 10 -3 25 VE 00 06 07 18 17 00 [facility] NT 17 -0 -0 .0 00 L- ti OL 30 8- 7- 00 07 MA ve IN 68 20 20 47 RT 22 17 17 65 HF 0 70 PH A AR 90 MA CY MC G #5 IN [address] [place] [address] BU 59 05 06 4. 28 00 [facility] TR 01 -2 -2 00 00 L- ti AN 10 5- 3- 0 04 MA ve S 75 20 20 53 RT 15 80 17 17 01 4 65 PH MC AR G/ MA HR CY PA #5 TC 91 H MO 31 05 06 30 30 00 [facility] NT 72 -1 -1 .0 00 L- ti EL 20 9- 6- 00 07 MA ve UK 72 20 20 48 RT 61 17 17 88 T 0 35 PH SO AR D MA 10 CY MG #5 91 TA BL ET FL 60 05 06 16 30 00 [facility] UT 43 -1 -1 .0 00 L- ti IC 20 9- 6- 00 07 MA ve 26 20 20 48 RT ON 41 17 17 88 E 5 37 PH OR AR OP MA CY 50 #5 MC 91 G SP RA Y CE 16 05 06 90 90 00 [facility] TI 57 -2 -1 .0 00 L- ti RI 10 3- 6- 00 08 MA ve ZI 40 20 20 83 RT NE 25 17 17 95 0 77 PH HC AR L MA 10 CY MG #5 91 TA BL ET LI 68 05 06 90 90 00 [facility] SI 64 -2 -1 .0 00 L- ti NO 50 3- 6- 00 07 MA ve OR 55 20 20 48 RT IL 15 17 17 95 5 4 01 PH AR MG MA CY TA BL #5 ET 91 HY 00 05 06 60 30 [address] [facility] DR 40 -2 -1 .0 00 L- ti OC 60 3- 6- 00 02 MA ve OD 12 20 20 24 RT ON 30 17 17 04 -A 1 36 PH CE AR TA MA OR CY NO PH #5 EN 91 5- 32 5 TR 50 05 06 30 30 00 [facility] [place] 11 -2 -1 .0 00 L- ti OD 10 1- 6- 00 07 MA ve ON 43 20 20 47 RT E 30 17 17 87 50 1 66 PH AR MG MA CY TA BL #5 ET 91 BU 00 05 06 60 30 00 [place] Ac OR 59 -2 -1 .0 00 L- ti OP 13 1- 6- 00 07 MA ve IO 54 20 20 48 RT N 10 17 17 44 HC 5 05 PH L AR SR MA CY 15 0 #5 MG 91 TA BL ET GA 00 05 06 90 30 00 [place] Ac BA 22 -2 -1 .0 00 L- ti PE 82 1- 6- 00 07 MA ve NT 63 20 20 47 RT IN 65 17 17 87 0 67 PH 60 AR 0 MA MG CY TA #5 BL 91 ET PA 68 05 06 30 30 00 [place] Ac NT 64 -2 -1 .0 00 L- ti OP 50 1- 6- 00 07 MA ve RA 49 20 20 47 RT ZO 25 17 17 87 LE 4 70 PH AR SO MA D CY DR #5 40 91 MG TA B BU 59 04 05 4. 28 00 [place] Ac TR 01 -2 -2 00 00 L- ti AN 10 7- 6- 0 04 MA ve S 75 20 20 53 RT 15 80 17 17 01 4 65 PH MC AR G/ MA HR CY PA #5 TC 91 H HY 00 04 05 30 [address] 37 -2 -2 .0 00 L- ti OC 80 7- 6- 00 07 MA ve HL 81 20 20 48 RT OR 00 17 17 48 OT 5 33 PH HI AR AZ MA ID CY E 12 #5 .5 91 MG CP CE 16 04 05 30 30 00 [place] Ac TI 57 -2 -2 .0 00 L- ti RI 10 7- 6- 00 08 MA ve ZI 40 20 20 83 RT NE 25 17 17 82 0 24 PH HC AR L MA 10 CY MG #5 91 TA BL ET HY 00 04 05 60 [address] 40 -2 -1 .0 00 L- ti OC 60 4- 9- 00 02 MA ve OD 12 20 20 24 RT ON 30 17 17 00 -A 1 28 PH CE AR TA MA OR CY NO PH #5 EN 91 5- 32 5 PA 68 04 05 30 30 00 [place] Ac NT 64 -2 -1 .0 00 [...] VE 00 04 05 18 17 00 [facility] NT 17 -2 -1 .0 00 L- ti OL 30 5- 9- 00 07 MA ve IN 68 20 20 47 RT 22 17 17 65 HF 0 70 PH A AR 90 MA CY MC G #5 IN 91 [place] [address] [place] BU 00 04 05 60 30 00 [place] Ac OR 59 -2 -1 .0 00 L- ti OP 13 5- 9- 07 MA ve IO 54 20 20 48 RT N 10 17 17 44 HC 5 05 PH L AR SR MA CY 15 0 #5 MG 91 TA BL ET GA 00 04 05 90 30 00 [facility] BA 22 -1 -1 .0 00 L- ti PE 82 9- 2- 00 07 MA ve NT 63 20 20 47 RT IN 65 17 17 87 0 67 PH 60 AR 0 MA MG CY TA #5 BL 91 ET BU 59 03 04 4. 28 00 [facility] TR 01 -3 -2 00 00 L- ti AN 10 0- 8- 0 04 MA ve S 75 20 20 52 RT 15 80 17 17 98 4 13 PH MC AR G/ MA HR CY PA #5 TC 91 H MO 54 03 04 30 30 00 [facility] NT 45 -3 -2 .0 00 L- ti EL 80 1- 8- 00 07 MA ve UK 89 20 20 47 RT 01 17 17 28 T 0 24 PH SO AR D MA 10 CY MG #5 91 TA BL ET FL 60 03 04 16 30 00 [facility] [place] 43 -3 -2 .0 00 L- ti IC 20 1- 8- 00 07 MA ve 26 20 20 46 RT ON 41 17 17 77 E 5 74 PH OR AR OP MA CY 50 #5 MC 91 G SP RA Y HY 00 03 04 60 30 [address] [facility] DR 40 -2 -2 .0 00 L- ti OC 60 7- 1- 00 02 MA ve OD 12 20 20 23 RT ON 30 17 17 96 -A 1 82 PH CE AR TA MA OR CY NO PH #5 EN 91 5- 32 5 LO 54 03 04 90 90 00 [facility] [place] 45 -2 -2 .0 00 L- [...] VE 00 03 04 18 17 00 [place] Ac NT 17 -2 -2 .0 00 L- ti OL 30 8- 1- 00 07 MA ve IN 68 20 20 47 RT 22 17 17 87 HF 0 68 PH A AR 90 MA CY MC G #5 IN [place] LE R BU 00 03 04 60 30 00 [place] Ac OR 59 -2 -2 .0 00 L- ti OP 13 8- 1- 00 07 MA ve IO 54 20 20 47 RT N 10 17 17 87 HC 5 69 PH L AR SR MA CY 15 0 #5 MG 91 TA BL ET OR 00 03 04 10 5 00 [place] Ac ED 14 -0 -0 .0 00 [...] 1 76 PH CE AR TA MA OR CY NO PH #5 EN 91 5- [...] PA 68 02 03 30 30 00 [place] Ac NT 64 -2 -2 .0 00 L- ti OP 50 4- 4- 00 07 MA ve RA 49 20 20 47 RT ZO 27 17 17 28 LE 0 23 PH AR SO MA D CY DR #5 40 91 MG TA B MO 54 02 03 30 30 00 [place] Ac NT 45 -2 -2 .0 00 L- ti EL 80 4- 4- 00 07 MA ve UK 89 20 20 47 RT 01 17 17 28 T 0 24 PH SO AR D MA 10 CY MG #5 91 TA BL ET TR 50 02 03 30 30 00 [place] Ac AZ 11 -2 -2 .0 00 L- ti OD 10 4- 4- 00 07 MA ve ON 43 20 20 47 RT E 30 17 17 28 50 1 25 PH AR MG MA CY TA BL #5 ET 91 BU 60 02 03 60 30 00 [place] Ac OR 50 -2 -2 .0 00 L- ti OP 50 4- 4- 00 07 MA ve IO 15 20 20 47 RT N 80 17 17 28 HC 1 26 PH L AR 75 MA CY MG #5 TA 91 BL ET CE 16 02 03 30 30 00 [place] Ac TI 57 -2 -2 .0 00 L- ti RI 10 4- 4- 00 08 MA ve ZI 40 20 20 83 RT NE 25 17 17 82 0 24 PH HC AR L MA 10 CY MG #5 91 TA BL ET BU 59 02 03 4. 28 00 [place] Ac TR 01 -2 -2 00 00 L- ti AN 10 4- 4- 0 04 MA ve S 75 20 20 52 RT 15 80 17 17 94 4 73 PH MC AR G/ MA HR CY PA #5 TC 91 H VE 00 02 03 18 17 00 [place] Ac NT 17 -1 -1 .0 00 L- ti OL 30 9- 7- 00 07 MA ve IN 68 20 20 46 RT 22 17 17 09 HF 0 21 PH A AR 90 MA CY MC G #5 IN 91 [place] LE R EQ 49 01 02 28 28 00 [place] Ac 03 -3 -2 .0 00 L- [...] 60 0- 4- 00 07 MA ve OR 00 20 20 46 RT ED 10 [...] 17 17 77 E 5 74 PH OR AR OP MA CY 50 #5 MC [...] ve LO 52 20 20 46 RT OR 05 17 17 09 AM 4 19 [...] HY 00 01 02 [address] 40 -2 -2 .0 00 L- ti OC 60 7- 4- 00 02 MA ve OD 12 20 20 23 RT ON 30 17 17 88 -A 1 94 PH CE AR TA MA OR CY NO PH #5 EN 91 5- 32 5 VE 00 01 02 18 17 00 [place] Ac NT 17 -1 -1 .0 00 L- ti OL 30 9- 7- 00 07 MA ve IN 68 20 20 46 RT 22 17 17 09 HF 0 21 PH A AR 90 MA CY MC G #5 IN 91 [place] [address] R PO 62 01 02 52 30 00 [place] Ac LY 17 -1 -1 7. 00 L- ti ET 50 9- 7- 00 07 MA ve HY 44 20 20 0 45 RT LE 23 17 17 56 NE 1 87 PH AR GL MA YC CY OL #5 33 91 50 PO WD TR 50 01 02 30 30 00 [place] Ac AZ 11 -2 -1 .0 00 L- ti OD 10 1- 7- 00 07 MA ve ON 43 20 20 46 RT E 30 17 17 09 50 1 22 PH AR MG MA CY TA BL #5 ET 91 LO 54 01 02 30 30 00 [place] Ac VA 45 -2 -1 .0 00 L- ti ST 80 0- 7- 00 07 MA ve AT 93 20 20 46 RT IN 81 17 17 59 0 01 PH 10 AR MA MG CY TA #5 BL 91 ET NI 43 01 01 28 28 00 [place] Ac CO 59 -0 -2 .0 00 L- ti TI 80 3- 7- 00 08 MA ve NE 44 20 20 83 RT 82 17 17 75 21 8 26 PH AR MG MA /2 CY 4H R #5 PA 91 TC H GA 00 12 01 90 30 00 [place] Ac BA 22 -3 -2 .0 00 L- ti PE 82 0- 7- 00 07 MA ve NT 63 20 20 46 RT IN 65 16 17 09 0 16 PH 60 AR 0 MA MG CY TA #5 BL 91 ET ES 68 12 01 30 30 00 [place] Ac CI 64 -3 -2 .0 00 L- ti TA 50 0- 7- 00 07 MA ve LO 52 20 20 46 RT OR 05 16 17 09 AM 4 19 [...] HY 00 12 01 [address] 40 -2 -2 .0 00 L- ti OC 60 7- 0- 00 02 MA ve OD 12 20 20 23 RT ON 30 16 17 84 -A 1 57 PH CE AR TA MA OR CY NO PH #5 EN 91 5- 32 5 VE 00 12 01 18 17 00 [place] Ac NT 17 -2 -2 .0 00 L- ti OL 30 7- 0- 00 07 MA ve IN 68 20 20 46 RT 22 16 17 09 HF 0 21 PH A AR 90 MA CY MC G #5 IN 91 [place] [address] R TR 50 12 01 30 30 00 [place] Ac AZ 11 -2 -2 .0 00 L- ti OD 10 7- 0- 00 07 MA ve ON 43 20 20 46 RT E 30 16 17 09 50 1 22 PH AR MG MA CY TA BL #5 ET 91 VE 00 12 01 18 17 00 [place] Ac NT 17 -0 -0 .0 00 L- ti OL 30 9- 9- 00 07 MA ve IN 68 20 20 45 RT 22 16 17 70 HF 0 08 PH A AR 90 MA CY MC G #5 IN 91 [place] [address] R Procedures Procedure DOS Code Location Performer Comment DRUG TEST 66964 [facility] QUAL DIR INC INC OPTICAL OBS PER DAY HYALURONA J7325 [facility] N/DERIV 7 PHYSICIAN SYNVISC/S S GROUP YNVISC-ON E IA INJ 1 MG ARTHROCEN 46386 [facility] TESIS 7 PHYSICIAN ASPIR&/IN S GROUP J MAJOR JT/BURSA W/O US ANESTHESI 46713 [facility] FEEBACK A NOSE & 7 ANESTH ACCESSORY [place] [address] [facility] ER JR PATHOLOGY GROSS&DAVI ROSCOPIC EXAM DECALCIFI 43698 [facility] CATION [facility] ER JR PROCEDURE DRUG TEST 34994 [facility] QUAL DIR INC INC OPTICAL OBS PER DAY DRUG TEST G0481 [facility] DEFINITV 7 [facility] ID INC INC METH P DAY 8-14 DRUG CL ECG 28031 [facility] JR ROUTINE 7 [facility] W/LEAST P 12 LDS I&R ONLY BASIC 14892 [facility] METABOLIC 7 [facility] PANEL INC INC CALCIUM TOTAL ECG 72624 [facility] ROUTINE 7 [facility] ECG INC INC W/LEAST 12 LDS TRCG ONLY W/O I&R INJECTION J3301 [facility] 7 PHYSICIAN TRIAMCINO S GROUP LONE ACETONIDE NOS 10 MG ARTHROCEN 05078 [facility] TESIS 7 PHYSICIAN ASPIR&/IN S GROUP J MAJOR JT/BUR[place] W/[place] [address] [facility] MAXILLOFA [facility] CIAL W/O INC INC CONTRAST MATERIAL MRI ANY 29316 [facility] JT LOWER [facility] EXTREM INC INC W/O CONTRAST MATRL DRUG TEST 71165 [facility] PRSMV [facility] QUAL DIR INC INC OPTICAL OBS PER DAY RADIOLOGI 97607 [facility] MENDES C 7 MEDICAL EXAMINATI IMAGING ON KNEE [address] LOWER [address]19 [place] MENDES EXTREMITY 7 MEDICAL W/O IMAGING CONTRAST ASS MATERIAL INJECTION 84958 [facility] 1 [place] 7 PHYSICIAN PHYSICIAN S GROUP S GROUP SHEATH/LI GAMENT APONEUROS IS RADEX 38070 [facility] MENDES HAND 7 MEDICAL MINIMUM 3 IMAGING VIEWS ASS DRUG TEST 72452 [facility] PRSMV 7 [facility] QUAL DIR INC INC OPTICAL OBS PER DAY MYOCARDIA 38912 [facility] L SPECT 7 [facility] MULTIPLE INC INC STUDIES CV STRS 57783 [facility] HAND TST 7 [facility] XERS&/OR HOSPITAL RX CONT P ECG W/O I&R CV STRS 73861 [facility] TST 7 [facility] XERS&/OR INC INC RX CONT ECG TRCG ONLY CV STRS 85472 [facility] TST 7 [facility] RX CONT P ECG I&R ONLY UNCLASSIF J3490 [facility] IED DRUGS 7 [place] [address] [facility] ANGIOGRAP 7 [facility] HY CHEST INC INC W/CONTRAS T/NONCONT RAST UNCLASSIF J3490 [facility] IED DRUGS 7 [facility] INC INC RADIOLOGI 87263 [facility] C EXAM 7 [facility] CHEST 2 INC INC VIEWS FRONTAL&L ATERAL ECG 89381 [facility] JR ROUTINE 7 [facility] W/LEAST P 12 LDS I&R ONLY ECG 21138 [facility] ROUTINE 7 [facility] ECG INC INC W/LEAST 12 LDS TRCG ONLY W/O I&[place] [address] [facility] LIPASE 7 [facility] INC INC FIBRIN 28136 [facility] DGRADJ 7 [facility] PRODUCTS INC INC D-DIMER QUAL/[place] [address] [facility] AMYLASE 7 [facility] INC INC CREATINE 20050 V[facility] KINASE 7 [facility] TOTAL INC INC CUL BACT 02551 [facility] AEROBIC 7 [facility] ADDL INC INC METHS DEFINITIV E EA ISOL CT THORAX 83375 [facility] MENDES 7 MEDICAL W/[place] [address] [facility] ABDOMEN & 7 [facility] PELVIS INC INC W/CONTRAS T MATERIAL DRUG TEST 35130 [facility] PRSMV 7 [facility] QUAL DIR INC INC OPTICAL OBS PER DAY COMPREHEN 94242 [facility] SIVE 7 [facility] METABOLIC INC INC PANEL CREATINE 18107 [facility] KINASE MB 7 [facility] [place] [address] [facility] LACTATE 7 [facility] INC INC BLOOD 27927 [facility] COUNT 7 [facility] COMPLETE INC INC AUTO&AUTO DIFRNTL WBC CULTURE 40061 [facility] BACTERIAL 7 [facility] BLOOD INC INC AEROBIC W/ID ISOLATES SUSCEPTIB 66153 [facility] LTY STDY 7 [facility] ANTIMICRB INC INC IAL MICRO/[place] [address] [facility] TROPONIN 7 [facility] QUANTITAT INC INC ONDINA DRUG 74943 [facility]CE [facility] SCREENING 7 [facility] OPIOIDS INC INC & OPIATE ANALOGS 5/MORE DRUG TEST 02572 [facility] PRSMV 7 [facility] QUAL DIR INC INC OPTICAL OBS PER DAY REMOVAL 29588 [facility] SKN TAGS 7 PHYSICIAN CONFERENCE TRANSLATOR FIBRQ S GROUP TAGS ANY AREA UPW/15 DRUG TST G0477 V[facility] PRESUMP;C 6 [facility] PBL BEING [place] [address] [facility] GOMEZON LIPASE 6 [facility] INC INC COMPREHEN 66463 V[facility]CE V[facility] SIVE 6 [facility] [address] [facility] AMYLASE 6 [facility] INC INC BLOOD 54843 V[facility]CE V[facility]CE COUNT 6 [facility] COMPLETE INC INC AUTO&AUTO DIFRNTL WBC UNCLASSIF J3490 [facility] IED DRUGS 6 [place] [address] SANTIAGOWard JORGE ABDOMEN & 6 MEDICAL PELVIS IMAGING W/CONTRAS ASS T MATERIAL COLLECTIO 22182 [facility] N VENOUS 6 [facility] BLOOD INC INC VENIPUNCT URE UNCLASSIF J3490 V[facility] IED DRUGS 6 [facility] INC INC LAPAROSCO 37570 [facility] PY SURG 6 PHYSICIAN CHOLECYST S GROUP ECTOMY LEVEL III 11953 [facility] PROCTOR SURG 6 [facility] PATHOLOGY GROSS&DAVI ROSCOPIC EXAM ANES 25589 [facility] INTRAPERI 6 ANESTH TONEAL OF THE UPPER BLUE ABDOMEN W/LAPS NOS PRESSURIZ 52558 [facility] ED/NONPRE 6 [facility] SSURIZED INC INC INHALATIO N TREATMENT COMPREHEN 93170 [facility] SIVE 6 [facility] METABOLIC INC INC PANEL COLLECTIO 99172 V[facility] N VENOUS 6 [facility] BLOOD INC INC VENIPUNCT URE COMPREHEN 26414 [facility] SIVE 6 [facility] [address] [facility] AMYLASE 6 [facility] INC INC URNLS DIP 83550 [facility] 6 [facility] STICK/TAB INC INC LET REAGENT AUTO MICROSCOP Y BLOOD 16844 [facility] COUNT 6 [facility] COMPLETE INC INC AUTO&[place] [address] V[facility] INFUSION 6 [facility] THERAPY/P INC INC ROPHYLAXI S /DX 1ST TO 1 HR THERAPEUT 51189 [facility] IC 6 [facility] INJECTION INC INC IV PUSH EACH NEW DRUG UNCLASSIF J3490 V[facility] IED DRUGS 6 [place] [address] [facility] LIPASE 6 [place] [address] V[facility] ABDOMEN & 6 [facility] PELVIS INC INC W/O CONTRAST MATERIAL COLONOSCO 99150 [facility] PY 6 [facility] W/BIOPSY INC INC SINGLE/[place] LTIPLE COLSC FLX [address] [facility] W/RMVL 6 [facility] [place] OF TUMOR S GROUP POLYP LESION SNARE TQ UNCLASSIF J3490 V[facility] IED DRUGS 6 [facility] [place] [address] [facility] WITH 6 [facility] [place] DIRECTED S GROUP [place] [address] [facility], PROCTOR SURG 6 [facility] PATHOLOGY GROSS&DAVI ROSCOPIC EXAM ANES [address] [place] [address] ANESTH INTESTINE OF THE BLUE ENDOSCOPY DISTAL DUODENUM SCREENING G0202 [facility] MAMMOGRAP INC INC HY YASMANY INCL CAD WHEN PERFORMD COMPUTER- 62863 [facility] AIDED 6 [facility] DETECTION [place] [address] [facility] ABDOMINAL 6 [facility] REAL INC INC TIME W/IMAGE LIMITED CREATINE 95125 VINCE [facility] KINASE MB 6 [facility] FRACTION INC INC ONLY RADIOLOGI 35696 [facility] C EXAM 6 [facility] CHEST 2 INC INC VIEWS FRONTAL&L ATERAL COMPREHEN 38398 [facility] SIVE 6 [facility] METABOLIC INC INC PANEL BLOOD 87618 [facility] COUNT 6 [facility] COMPLETE INC INC AUTO&AUTO DIFRNTL WBC HEMOGLOBI 65057 V[facility] N [facility] GLYCOSY[place] [address] [facility] TROPONIN 6 [facility] QUANTITAT INC INC ONDINA LIPID 98573 V[facility] PANEL 6 [facility] INC INC CREATINE 37136 V[facility] KINASE 6 [facility] TOTAL INC INC COLLECTIO 26234 [facility] N VENOUS 6 [facility] BLOOD INC INC VENIPUNCT URE Encounters Encounter Start End Date Code [facility] T OFFICE 38809 [facility] 7 7 PHYSICIAN T VISIT S GROUP 25 MINUTES OFFICE 06213 [facility] 7 7 [facility] T [facility]IS[facility] 15 MINUTES [facility] VINCE - 7 7 [facility]CE - 7 7 [facility] INC T OFFICE 23445 [facility] OUT[facility] 7 7 PHYSICIAN T VISIT S GROUP 10 MINUTES OFFICE 19725 [facility] OUTPATIEN 7 7 [facility] T [facility]ISIT S GROUP 10 MINUTES [facility]OSPITAL VINCE - 7 7 [facility] T OFFICE 39944 [facility] 7 7 [facility] T VISIT S GROUP 15 MINUTES [facility]OSPITAL VINCE - 7 7 [facility] T [facility] VINCE - 7 7 [facility] OUTPATI[facility] INC T OFFICE 47661 [facility] OUTPATIEN 7 7 PHYSICIAN T VISIT S GROUP 10 MINUTES EMERGENCY 35539 [facility] 7 7 PHYSICIAN DEPARTMEN S, [facility] T VISIT HIGH/URGE NT SEVERITY OFFICE 79770 [facility] OUTPATIEN 7 7 PHYSICIAN T VISIT S GROUP 15 MINUTES [facility]OSPITAL VINCE - 7 7 [facility] T [facility]INCE - 7 7 [facility] INC T OFFICE 18010 [facility] OUTPATIEN 7 7 PHYSICIAN T VISIT S GROUP 15 MINUTES HOSPITAL VINCE - 7 7 [facility] INC T OFFICE 28265 [facility] OUTPATIEN 7 7 PHYSICIAN T VISIT S GROUP 15 MINUTES OFFICE [id number] [facility] OUTPATIEN 7 7 PHYSICIAN T NEW 10 S GROUP MINUTES HOSPITAL VINCE - 7 7 [facility] OUTPATIEN INC T EMERGENCY [id number] VINCE 7 7 [facility] DEPARTMEN INC T VISIT LOW/MODER SEVERITY OFFICE [id number] [facility] KRYSTA OUTPATIEN 7 7 PHYSICIAN T VISIT S GROUP 15 MINUTES HOSPITAL VINCE - 7 7 [facility] OUTPATIEN [facility] T HOSPITAL VINCE - 6 6 [facility] OUTPATIEN INC T HOSPITAL VINCE - 6 6 [facility] OUTPATIEN INC T [facility]OSPITAL VINCE - 6 6 [facility] OUTPATIEN INC T OFFICE [id number] [facility] ALL[facility] JR OUTPATIEN 6 6 PHYSICIAN T VISIT S GROUP 10 MINUTES HOSPITAL VINCE - 6 6 [facility] OUTPATIEN INC T EMERGENCY [id number] TRACEY CARDONA, [address] [facility] S, [facility] T VISIT HIGH/URGE NT SEVERITY HOSPITAL VINCE - 6 6 [facility]PAT[facility] T OFFICE 10627 [facility] PHYSICIAN DAVI T VISIT S GROUP 15 MINUTES HOSPITAL VINCE - 6 6 [facility] OUT[facility] T OFFICE [id number] [facility] PHYSICIAN T VISIT S GROUP 10 MINUTES HOSPITAL VINCE - 6 6 [facility] OUTPATIEN INC T OFFICE 90105 [facility] ALL[facility] OUTPATIEN 6 6 PHYSICIAN [place] T VISIT S GROUP 15 MINUTES HOSPITAL VINCE - 6 6 [facility] OUTPATIEN INC T OFFICE [id number] [facility] OUTPATIEN 6 6 PHYSICIAN DAVI T VISIT S GROUP 15 MINUTES HOSPITAL VINCE - 6 6 [facility] OUTPATIEN INC T OFFICE [id number] [facility] KRYSTA LEE 6 6 PHYSICIAN DAVI T VISIT S GROUP 15 MINUTES
--- OUTSIDE RECORDS SUMMARY | 2017-04-20 18:07 | External Medical Summary Rpt ---
Author Author YFN Maria Isabel, [employer] Organization [employer] Address Unknown Phone Unavailable Results Drugs identified in Urine by Screen method Observa Value Referen Units Interpr Notes Date tion ce etation Range Positive urine drug screen samples are stored for 7 days. Contact the Lab if confirmation of positives is needed. Ampheta NEGATIV <1000 ng/mL No No Mar 15 mine E informa informa 2017 [Presen tion in tion in 10:18 ce] in source source AM Urine data data by Screen method Barbitura <200 ng/mL No No Mar 15 ashley informati informati 2017 [Mass/vol on in on in 10:18 AM ume] in source source Urine by data data Screen method Benzodiaz 200 ng/mL ng/mL No No Mar 15 epines informati informati 2016 [Mass/vol on in on in 10:18 AM ume] in source source Serum or data data Plasma by Screen method Cocaine <300 ng/g No No Mar 15 [Mass/vol informati informati 2016 ume] in on in on in 10:18 AM Unspecifi source source ed data data specimen Methadone <300 ng/mL No No Mar 15 informati informati 2016 [Mass/vol on in on in 10:18 AM ume] in source source Unspecifi data data ed specimen Opiates <300 ng/mL High This is Mar 15 [Mass/vol an 2016 ume] in UNCONFIRM 10:18 AM Unspecifi ED ed result. specimen This result is for medicalpu rposes and/or treatment only. Phencycli <25 ng/mL No No Mar 15 dine informati informati 2016 [Mass/vol on in on in 10:18 AM ume] in source source Unspecifi data data ed specimen 11-Hydr NEGATIV <50 ng/mL No No Mar 15 oxy E informa informa 2017 delta-9 tion in tion in 10:18 source source AM tetrahy data data drocann abinol [Presen ce] in Unspeci fied specime n Drugs identified in Urine by Screen method Observa Value Referen Units Interpr Notes Date tion ce etation Range Positive urine drug screen samples are stored for 7 days. Contact the Lab if confirmation of positives is needed. Ampheta NEGATIV <1000 ng/mL No No February 14 mine E informa informa 2017 [Presen tion in tion in 10:30 ce] in source source AM Urine data data by Screen method Barbitura <200 ng/mL No No February 14 ashley informati informati 2017 [Mass/vol on in on in 10:30 AM ume] in source source Urine by data data Screen method Benzodiaz 200 ng/mL ng/mL No No February 14 epines informati informati 2017 [Mass/vol on in on in 10:30 AM ume] in source source Serum or data data Plasma by Screen method Cocaine <300 ng/g No No February 14 [Mass/vol informati informati 2016 ume] in on in on in 10:30 AM Unspecifi source source ed data data specimen Methadone <300 ng/mL No No February 14 informati informati 2016 [Mass/vol on in on in 10:30 AM ume] in source source Unspecifi data data ed specimen Opiates <300 ng/mL High This is February 14 [Mass/vol an 2016 ume] in UNCONFIRM 10:30 AM Unspecifi ED ed result. specimen This result is for medicalpu rposes and/or treatment only. Phencycli <25 ng/mL No No February 14 dine informati informati 2016 [Mass/vol on in on in 10:30 AM ume] in source source Unspecifi data data ed specimen 11-Hydr NEGATIV <50 ng/mL No No February 14 oxy E informa informa 2017 delta-9 tion in tion in 10:30 source source AM tetrahy data data drocann abinol [Presen ce] in Unspeci fied specime n
--- OUTSIDE RECORDS SUMMARY | 2017-04-20 18:07 | External Medical Summary Rpt ---
Author Author YFN Maria Isabel, [employer] Organization [employer] Address Unknown Phone Unavailable [...]
--- NOTE | 2017-04-20 18:52 | Urgent Treatment Center Report ---
History of Present Issue Date/Time Seen by Provider 04/20/17 1800 Visit Reason Pt arrived:Walked Presenting Problem:SHORTNESS OF BREATH Location if Accident: Onset of symptoms date/time:04/20/17 or onset unknown for: Have you (or family members/close friends) recently traveled outside the [place]? N If Yes, where/when: Have you had exposure to infectious disease within the past month? TB? Other? Specify: pt sent from triage for decision. Dr. Salbador Rudolph called [facility] to report pt here for medication refills due to loss of insurance. No acute symptoms and he would rather her have a [facility] bill then an ER bill. patient is agreeable to transfer. VS were not discussed prior to pt being transferred to [facility]. pt arrived to [facility] visibly upset and tearful. Requesting albuterol neb. Reports loosing her medicaid recently and despite working w/ Vielka, [facility] financial counselor, no option but to wait until June 2017 to reapply. Ran out of ventolin inhaler approx 1.5 weeks ago. Typically using only PRN. "Maybe 1-2 times a day if that. Just depends on the weather and my activity". Gradual increase in SOA since then. Denies wheezing. No chest pain or headache. + tobacco abuse. Currently only out of ventolin. Reports she will run out of "all other medications" within the next week. Has not followed up with PCP regarding difficulty affording medication because can't afford to pay office visit. Hasn't called office. Last contact w/ financial counselor nearly 2 weeks ago. Has not been in contact w/ any pharmacy re: possible coupons or patient assistance. reporting she can't afford any medication, regardless how cheap and doesn't have the gas money to pick the medication up, "even if you prescribe it". Source patient Exam Limitations no limitations ALLERGIES Coded Allergies: No Known Drug Allergies (01/26/17) Home Medications Active Scripts SIMETHICONE (MYLICON 80MG Chewable) 80 MG PO TID #60 TABLET Ref 1 Prov: 08/27/16 Levofloxacin (Levaquin 500MG) 500 MG PO DAILY #10 TAB Prov: 10/21/16 Prednisone (Prednisone 20MG) 20 MG PO BID #10 TAB Prov: 12/01/16 Albuterol (Albuterol Inhaler 17GM) 2 PUFF IN QIDP PRN COUGH/SOB #1 INH Prov: 10/30/13 Cyclobenzaprine Hcl (Flexeril) 10 MG PO TID #15 TAB Prov: 05/23/14 Oxycodone 5MG/[id number] (Oxycodone-Acetaminophen 5-325) 1 TAB PO 1-2 DAILY PRN pain #60 TAB Prov: 10/26/15 Reported Medications ALBUTEROL (Ventolin Hfa) 1 PUFF IH PRN TRAZODONE HCL (Trazodone HCl) 50 MG PO QHS Gabapentin (Gabapentin 600MG) 600 MG PO Q8 CETIRIZINE HCL (Cetirizine 10MG) 10 MG PO DAILY BUPROPION HCL (Bupropion XL) 150 MG PO DAILY Albuterol Sulfate (Proair Hfa) 1 PUFF IH Q6HP PRN BREATHING Diazepam (Valium 5MG) 5 MG PO TID Escitalopram Oxalate (Escitalopram 20MG) 10 MG PO DAILY Prednisone (Prednisone 1MG) (Unknown Dose) PO DAILY Cetirizine Hcl (Zyrtec) 10 MG PO DAILY History Medical History General CAD? No Angina: No SD: No Hypertension? No Hyperlipidemia? No CHF? No DVT? No PE? No COPD? No Asthma? Yes Anemia? No GERD? No Gastric ulcers? No GI Bleed? No Hernia? No Thyroid Problems? No Hypothyroidism? No CVA? No Seizures? No Diabetes? No Renal Insuffiency? No UTI? No Stones? No BPH? No GB Disease: No Nephritic Syndrome? No Asplenia? No Hepatitis? No Sickle Cell Disease? No Arthritis? Yes Migraines? No Cataracts? No Glaucoma? No MRSA? No HIV? No TB? No Anxiety? Yes Depression? Yes Cancer? No More? No Immunization HX DT/Tetanus 5-10 YRS Surgical Hx Previous Surgery?Y HYSTERECTOMY D & C COLONOSCOPY Cholecystectomy BACK SURGERY Family History Family HX Diabetes Yes CAD Yes Hypertension No Hyperlipidemia No Cancer No TB No Social History Smoking Hx Smoker: Current Every Day Smoker Tobacco: Yes Type Cigarettes Packs/day < 1 Pack Alcohol Alcohol: No Review of Systems All Other Systems Reviewed and Negative Constitutional denies fever, denies malaise, denies weakness Eyes denies blurred vision, denies vision change ENT denies: ear pain, nose discharge, nose congestion, throat pain. Respiratory see HPI Cardiovascular see HPI, denies palpitations Gastrointestinal denies nausea, denies vomiting Psychiatric/Neurological see HPI, denies other (SI/HI "just frustrated") Physical Exam Vital Signs Vital Signs Date Time Temp Pulse Resp B/P Pulse O2 O2 Flow FiO2 Ox Delivery Rate 04/20 1902 98.2 72 20 134/75 97 04/20 1756 98.2 72 20 134/75 97 04/20 1742 98.2 84 20 199/110 97 General Appearance obese, obviously upset, tearful Eye Exam - bilateral eye normal exam (x/ tears) Ear, Nose, Throat john TMs pearly lamar, intact, obvious chronic allergies, boggy turbinates, clear rhinorrhea, cobblestoning, clear PND Neck non-tender, supple Respiratory Status Yes: trachea midline, chest symmetrical, non tender chest. No: respiratory distress, use of accessory muscles, pain on inspiration, pain on expiration, productive cough, non productive cough. Lung Sounds anterior: lungs clear. posterior: lungs clear. bilateral: lungs clear. Cardiovascular regular rate/rhythm, no peripheral edema, no murmur Peripheral Pulses Pulses normal Yes Neurologic alert, oriented x 3 Mental status normal mood/affect (given situation, visibly upset) Skin normal color, warm/dry Medical Decision Making LABS/Meds/Orders Pt receiving controlled substance in ED? No Results/Orders Current Medication Orders Sig/Samm Start time Last Medication Dose Route Stop Time Status Admin Albuterol 2.5 MG ONCE ONE 04/20 1830 DC 04/20 INH 04/20 1831 182 Albuterol See Dose ONCE ONE 04/20 1830 DC 04/20 Insts (1) IH 04/20 1831 1828 Miscellaneous 1 UNIT ONCE ONE 04/20 1830 DC 04/20 XX 04/20 1831 182 Dose Instructions: (1)Albuterol: Administer albuterol neb, provide ventolin inhaler Orders Procedure Date/time Status RT REQUEST ALBUTEROL INHALER 04/20 1818 Active RT REQUEST ALBUTEROL NEB 04/20 1818 Active Progress [facility] Progress Notes Date 04/20/17 Time 1845 Comment Importance of each medications reviewed individually. Risk of not taking medications and stopping controlled medication abruptly discussed. Offered to refill all noncontrolled medications on list provided by patient (ventolin, singulair, flonase, lovastatin, pantoprazole, zyrtec, bupropion, lisinopril). Pt declined multiple times. Various reasons provided each time (can't afford them, no gas money to pick them up, already have several refills). Multiple different suggestions were provided by RN and CUSTOMS MANAGER. Suggested FU w/ Financial counselor "already have. It is no hope.". Suggested FU w/ PCP for possible samples "they don't get them", financial assistance programs "I am sure I won't qualify", medication coupons "no gas to go get them". Suggested transferring to [facility] in [place], a primary care office with sliding scale payment plans and specialized pharmacy w/ cheaper medications. Pt didn't care for this idea and also listed gas to get there as a barrier. Suggesting calling [facility] and inquiring about $4 list. "Most of my medications are not going to be on that list". Suggested FU w/ clinic pharmacy to possibly arrange payment plans. Pt is considering this option. Departure Departure Time of Disposition 1846 Disposition DC Home or Self Care(routine) Clinical Impression Primary Impression: Encounter for medication refill Condition STABLE Referrals Dexter GARIBAY,Aram Sanches (Family) Call office and schedule follow up appt. He can often help with samples, patient assistance programs, financial counselor appointments or even changing medications to cheaper but still effective medications. Additional Instructions Your medications are very important. If you can not afford them, contact with your primary care provider is VERY important. Most of the time, they can offer suggestions to try and assist you. Call Vielka tomorrow. Stay in touch with her and options/offers are constantly changing. Call [facility] at [phone]. they might be able to assist you with medication pricing or payment plans Can consider changing to [facility] in [place]. They are primary care office where pricing is based on income. They even offer a pharmacy with specially discounted pricing only for their patients. Inquire at [facility] about their $4 list Discharge Counseling Counseled pt/family regarding diagnosis, medications/RX, home care, follow up needs Comments pt sent home w/ ventolin HFA, 60 puffs. at 1940
--- NOTE | 2017-04-20 18:52 | Urgent Treatment Center Report ---
History of Present Issue Date/Time Seen by Provider 04/20/17 1800 Visit Reason Pt arrived:Walked Presenting Problem:SHORTNESS OF BREATH Location if Accident: Onset of symptoms date/time:04/20/17 or onset unknown for: Have you (or family members/close friends) recently traveled outside the [place]? N If Yes, where/when: Have you had exposure to infectious disease within the past month? TB? Other? Specify: pt sent from triage for decision. Dr. Salbador Rudolph called [facility] to report pt here for medication refills due to loss of insurance. No acute symptoms and he would rather her have a [facility] bill then an ER bill. patient is agreeable to transfer. VS were not discussed prior to pt being transferred to [facility]. pt arrived to [facility] visibly upset and tearful. Requesting albuterol neb. Reports loosing her medicaid recently and despite working w/ Vielka, [facility] financial counselor, no option but to wait until June 2017 to reapply. Ran out of ventolin inhaler approx 1.5 weeks ago. Typically using only PRN. "Maybe 1-2 times a day if that. Just depends on the weather and my activity". Gradual increase in SOA since then. Denies wheezing. No chest pain or headache. + tobacco abuse. Currently only out of ventolin. Reports she will run out of "all other medications" within the next week. Has not followed up with PCP regarding difficulty affording medication because can't afford to pay office visit. Hasn't called office. Last contact w/ financial counselor nearly 2 weeks ago. Has not been in contact w/ any pharmacy re: possible coupons or patient assistance. reporting she can't afford any medication, regardless how cheap and doesn't have the gas money to pick the medication up, "even if you prescribe it". Source patient Exam Limitations no limitations ALLERGIES Coded Allergies: No Known Drug Allergies (01/26/17) Home Medications Active Scripts SIMETHICONE (MYLICON 80MG Chewable) 80 MG PO TID #60 TABLET Ref 1 Prov: 08/27/16 Levofloxacin (Levaquin 500MG) 500 MG PO DAILY #10 TAB Prov: 10/21/16 Prednisone (Prednisone 20MG) 20 MG PO BID #10 TAB Prov: 12/01/16 Albuterol (Albuterol Inhaler 17GM) 2 PUFF IN QIDP PRN COUGH/SOB #1 INH Prov: 10/30/13 Cyclobenzaprine Hcl (Flexeril) 10 MG PO TID #15 TAB Prov: 05/23/14 Oxycodone 5MG/[id number] (Oxycodone-Acetaminophen 5-325) 1 TAB PO 1-2 DAILY PRN pain #60 TAB Prov: 10/26/15 Reported Medications ALBUTEROL (Ventolin Hfa) 1 PUFF IH PRN TRAZODONE HCL (Trazodone HCl) 50 MG PO QHS Gabapentin (Gabapentin 600MG) 600 MG PO Q8 CETIRIZINE HCL (Cetirizine 10MG) 10 MG PO DAILY BUPROPION HCL (Bupropion XL) 150 MG PO DAILY Albuterol Sulfate (Proair Hfa) 1 PUFF IH Q6HP PRN BREATHING Diazepam (Valium 5MG) 5 MG PO TID Escitalopram Oxalate (Escitalopram 20MG) 10 MG PO DAILY Prednisone (Prednisone 1MG) (Unknown Dose) PO DAILY Cetirizine Hcl (Zyrtec) 10 MG PO DAILY History Medical History General CAD? No Angina: No DC: No Hypertension? No Hyperlipidemia? No CHF? No DVT? No PE? No COPD? No Asthma? Yes Anemia? No GERD? No Gastric ulcers? No GI Bleed? No Hernia? No Thyroid Problems? No Hypothyroidism? No CVA? No Seizures? No Diabetes? No Renal Insuffiency? No UTI? No Stones? No BPH? No GB Disease: No Nephritic Syndrome? No Asplenia? No Hepatitis? No Sickle Cell Disease? No Arthritis? Yes Migraines? No Cataracts? No Glaucoma? No MRSA? No HIV? No TB? No Anxiety? Yes Depression? Yes Cancer? No More? No Immunization HX DT/Tetanus 5-10 YRS Surgical Hx Previous Surgery?Y HYSTERECTOMY D & C COLONOSCOPY Cholecystectomy BACK SURGERY Family History Family HX Diabetes Yes CAD Yes Hypertension No Hyperlipidemia No Cancer No TB No Social History Smoking Hx Smoker: Current Every Day Smoker Tobacco: Yes Type Cigarettes Packs/day < 1 Pack Alcohol Alcohol: No Review of Systems All Other Systems Reviewed and Negative Constitutional denies fever, denies malaise, denies weakness Eyes denies blurred vision, denies vision change ENT denies: ear pain, nose discharge, nose congestion, throat pain. Respiratory see HPI Cardiovascular see HPI, denies palpitations Gastrointestinal denies nausea, denies vomiting Psychiatric/Neurological see HPI, denies other (SI/HI "just frustrated") Physical Exam Vital Signs Vital Signs Date Time Temp Pulse Resp B/P Pulse O2 O2 Flow FiO2 Ox Delivery Rate 04/20 1902 98.2 72 20 134/75 97 04/20 1756 98.2 72 20 134/75 97 04/20 1742 98.2 84 20 199/110 97 General Appearance obese, obviously upset, tearful Eye Exam - bilateral eye normal exam (x/ tears) Ear, Nose, Throat john TMs pearly lamar, intact, obvious chronic allergies, boggy turbinates, clear rhinorrhea, cobblestoning, clear PND Neck non-tender, supple Respiratory Status Yes: trachea midline, chest symmetrical, non tender chest. No: respiratory distress, use of accessory muscles, pain on inspiration, pain on expiration, productive cough, non productive cough. Lung Sounds anterior: lungs clear. posterior: lungs clear. bilateral: lungs clear. Cardiovascular regular rate/rhythm, no peripheral edema, no murmur Peripheral Pulses Pulses normal Yes Neurologic alert, oriented x 3 Mental status normal mood/affect (given situation, visibly upset) Skin normal color, warm/dry Medical Decision Making LABS/Meds/Orders Pt receiving controlled substance in ED? No Results/Orders Current Medication Orders Sig/Samm Start time Last Medication Dose Route Stop Time Status Admin Albuterol 2.5 MG ONCE ONE 04/20 1830 DC 04/20 INH 04/20 1831 182 Albuterol See Dose ONCE ONE 04/20 1830 DC 04/20 Insts (1) IH 04/20 1831 1828 Miscellaneous 1 UNIT ONCE ONE 04/20 1830 DC 04/20 XX 04/20 1831 182 Dose Instructions: (1)Albuterol: Administer albuterol neb, provide ventolin inhaler Orders Procedure Date/time Status RT REQUEST ALBUTEROL INHALER 04/20 1818 Active RT REQUEST ALBUTEROL NEB 04/20 1818 Active Progress [facility] Progress Notes Date 04/20/17 Time 1845 Comment Importance of each medications reviewed individually. Risk of not taking medications and stopping controlled medication abruptly discussed. Offered to refill all noncontrolled medications on list provided by patient (ventolin, singulair, flonase, lovastatin, pantoprazole, zyrtec, bupropion, lisinopril). Pt declined multiple times. Various reasons provided each time (can't afford them, no gas money to pick them up, already have several refills). Multiple different suggestions were provided by RN and DIETICIAN. Suggested FU w/ Financial counselor "already have. It is no hope.". Suggested FU w/ PCP for possible samples "they don't get them", financial assistance programs "I am sure I won't qualify", medication coupons "no gas to go get them". Suggested transferring to [facility] in [place], a primary care office with sliding scale payment plans and specialized pharmacy w/ cheaper medications. Pt didn't care for this idea and also listed gas to get there as a barrier. Suggesting calling [facility] and inquiring about $4 list. "Most of my medications are not going to be on that list". Suggested FU w/ clinic pharmacy to possibly arrange payment plans. Pt is considering this option. Departure Departure Time of Disposition 1846 Disposition DC Home or Self Care(routine) Clinical Impression Primary Impression: Encounter for medication refill Condition STABLE Referrals Dexter GARIBAY,Aram Sanches (Family) Call office and schedule follow up appt. He can often help with samples, patient assistance programs, financial counselor appointments or even changing medications to cheaper but still effective medications. Additional Instructions Your medications are very important. If you can not afford them, contact with your primary care provider is VERY important. Most of the time, they can offer suggestions to try and assist you. Call Vielka tomorrow. Stay in touch with her and options/offers are constantly changing. Call [facility] at [phone]. they might be able to assist you with medication pricing or payment plans Can consider changing to [facility] in [place]. They are primary care office where pricing is based on income. They even offer a pharmacy with specially discounted pricing only for their patients. Inquire at [facility] about their $4 list Discharge Counseling Counseled pt/family regarding diagnosis, medications/RX, home care, follow up needs Comments pt sent home w/ ventolin HFA, 60 puffs. at 1947
[2017-04-20 19:02] VITALS: BP 134/75
== END 2017-04-20 19:02 | disposition home or self-care (01) ==
LOC: UTC 17:39 → ER 17:39 → UTC 17:54
DX: Z76.0 Encounter for issue of repeat prescription (principal); R06.02 Shortness of breath; J45.909 Unspecified asthma, uncomplicated

== ENCOUNTER → 2017-08-08 | Outpatient (CLI) | payer MEDICAID ==
[2017-08-08 21:49] LABS: AMPHETAMINES/METAMPHETAMINES NEGATIVE ng/mL (<1000)
== END ==
LOC: LAB 17:55
PROVIDERS: Emergency Medicine
DX: Z79.899 Other long term (current) drug therapy (principal)

== ENCOUNTER → 2017-09-06 | Outpatient (CLI) | payer MEDICAID ==
[2017-09-06 20:10] LABS: AMPHETAMINES/METAMPHETAMINES NEGATIVE ng/mL (<1000)
== END ==
LOC: LAB 15:59
PROVIDERS: Emergency Medicine
DX: Z79.899 Other long term (current) drug therapy (principal)